=== PATIENT | female | born 1930 | race Caucasian/White ===

== ENCOUNTER 2017-06-21 10:48 | Inpatient (IN) ==
--- OUTSIDE RECORDS SUMMARY | 2017-06-21 11:54 | External Medical Summary | Summary of Care ---
:1930 Author Name Royal Blanton M.D. Address [address], [place] [id number] Care Team Providers Name Role Phone Lamar Knowles Unavailable Unavailable Tong Mcmanus, Son Unavailable Unavailable Royal Blanton M.D. Unavailable Unavailable Mayi Mcmanus, Gerardo Unavailable Unavailable Tim May Primary Care Provider Unavailable Unavailable Unavailable Unavailable Functional Status Functional Status Health Issues Name Dates Details Functional status health issues are not documented Status: Cognitive Status Health Issues Name Dates Details Cognitive status health issues are not documented Status: Problems Name Dates Details Asthma (493.90, J45.909) Status: Active Eczema (692.9, L30.9) Status: Active Medications Name Dates Details Potassium Chloride Nicky ER 20 MEQ Oral Tablet Extended Release TAKE 1 TABLET EVERY 12 HOURS. Quantity: 60 Refills: 4 Prince Fortune M.D. Started 30-Jul-2011 ActiveAllegra Allergy 180 MG Oral Tablet Refills: 0 Started ActiveMultiple Vitamin Oral Tablet Refills: 0 Started ActiveMontelukast Sodium 10 MG Oral Tablet TAKE 1 TABLET BY MOUTH DAILY Quantity: 30 Refills: 12 Lamar Wilkerson P.AFatimah Started 25-Dec-2013 ActiveSuperb Nails Oral Tablet TAKE 1 TABLET DAILY. Refills: 0 Gerardo See M.D. Started ActiveZyrTEC Allergy 10 MG Oral Tablet Take 1 tablet daily Refills: 0 Gerardo See M.D. Started ActiveHydrOXYzine HCl - 25 MG Oral Tablet Take 1 tablet daily Refills: 0 Gerardo See M.D. Started ActiveCephalexin 500 MG Oral Capsule TAKE 1 CAPSULE EVERY 12 HOURS UNTIL GONE Quantity: 20 Refills: 0 Royal Blanton M.D. Started ActiveTriamcinolone .1%/ Eucerin Compound (50/50 mix) -- 1 pound tub (454 grams) APPLY LIBERALLY TO AFFECTED AREAS TWICE DAILY NEEDED; DISPENSE 454 GM JAR Quantity: 454 Refills: 3 Royal Blanton M.D. Started Active Allergies and Adverse Reactions Name Dates Details No Known Drug Allergies Status: Active Past Medical History Name Dates Details History of pneumonia (V12.61, Z87.01) Status: Resolved History of solitary pulmonary nodule (V12.69, Z87.09) Status: Resolved Procedures Procedure Dates Details History of Hysterectomy Procedures not documented Immunization Name Dates Details Immunizations not documented Family History Mother Name Dates Details Family history of Mother At Age ____ Status: Active Father Name Dates Details Family history of Father At Age ____ Status: Active Social History Name Dates Details Smoking StatusNever smoker Vital Signs Date Test Result Details 10:28 BP Systolic 132 mm[Hg] Status: BP Diastolic 82 mm[Hg] Status: Weight 174 lb Status: Body Mass Index Calculated 28.96 kg/m2 Status: Body Surface Area Calculated 1.86 m2 Status: Results Date Description Value Details Results not documented Plan of Care Planned Observations Name Dates Details Planned Goals not documented Goal Planned Encounters Appointment; Provider: Collin Solis On 24-Dec-2014 13:15 Appointment; Provider: Prince Mishrauong On 23-Jun-2010 16:00 Appointment; Provider: Royal Blanton On 17-Jul-2009 11:45 Instructions Instructions not documented Encounters Appointment; Royal Blanton On Encounter Diagnosis: Problem not documented 14:00 Appointment; Gerardo See On Encounter Diagnosis: Problem not documented 09:45 Appointment; Collin Solis On 25-Dec-2013 Encounter Diagnosis: Problem not documented 14:15
--- OUTSIDE RECORDS SUMMARY | 2017-06-21 11:55 | External Medical Summary | Continuity of Care Document ---
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 Medications RxNorm Medication Dose Route Instructions Indications Start End Status Date Date 119 Aspirin 81 Oral orally every Active milligram day Budesonide 2 Inhalation inhaled every Active inhalation 12 hours Multivitamins 1 capsule Oral orally every Active day Potassium 75 20 Oral orally every Active MG Oral Tablet milliequiv day alent (administer with a meal and dilute/mix in a full glass of water) 224034 Rosuvastatin 10 Oral orally every Active calcium 10 MG milligram day Oral Tablet Cetirizine 0 Oral orally every No milligram day Longer Active Crestor 10 mg by Mouth by Mouth No every other Longer day Active 50758 fexofenadine 0 Oral orally every No milligram day Longer Active 20010515 montelukast 10 10 Oral orally every No MG Oral Tablet milligram evening Longer Active Allergies Code Code Allergy Type Reaction Severity Start End Status System Substance Date Date RXNorm Wheat Flour Drug Unknown 02/21/20 Active allergy 16 RXNorm MISC-FOOD Food Itchy skin Unknown 02/21/20 Active allergy eruption 16 Results Laboratory Results Order: Comprehensive Metabolic PanelLegend : D=Delta, H=High, L=Low, HH=Critical High, LL=Critical Low, AA=Critical Alpha- Numeric, C=Corrected, A=Abnormal LOINC Test Result Flag Range Units Date 2344-10 116 H 70-105 mg/dl 06/10/2016 1Glucose 08:45 SerPl-mCnc 3094-0 16 7-25 mg/dl 06/10/2016 1BUN 08:45 SerPl-mCnc 2160-0 0.9 0.6-1.3 mg/dl 06/10/2016 1Creat 08:45 SerPl-mCnc 26952-4 18 13-39 06/10/2016 1Creat/Urea 08:45 nit SerPl 2951-2 145 135-145 mmol/L 06/10/2016 1Sodium 08:45 SerPl-sCnc 81662-3 3.8 3.5-5.1 mmol/L 06/10/2016 1Potassium 08:45 SerPl-mCnc 2075-0 107 98-107 mmol/l 06/10/2016 1Chloride 08:45 SerPl-sCnc 2028-9 29 21-31 mmol/l 06/10/2016 1CO2 08:45 SerPl-sCnc 42922-4 13 9-16 mmol/L 06/10/2016 1Anion Gap 08:45 SerPl-sCnc 2692-2 302 H 277-298 mOsm/kg 06/10/2016 1Osmolality 08:45 SerPl 15587-1 9.4 8.2-10.0 mg/dl 06/10/2016 1Calcium 08:45 SerPl-mCnc 1742-6 23 7-52 IU/L 06/10/2016 1ALT 08:45 SerPl-cCnc 1920-8 29 13-39 IU/L 06/10/2016 1AST 08:45 SerPl-cCnc 1715-2 64 34-104 U/L 06/10/2016 1ACP 08:45 SerPl-cCnc 1975-2 0.3 0.3-1.0 mg/dl 06/10/2016 1Bilirub 08:45 SerPl-mCnc 2885-2 7.2 6.0-8.3 g/dL 06/10/2016 1Prot 08:45 SerPl-mCnc 1751-7 4.4 3.5-5.7 g/dl 06/10/2016 1Albumin 08:45 SerPl-mCnc 2336-6 2.8 2.3-3.2 g/dL 06/10/2016 1Globulin 08:45 Ser-nc 1759-0 1.6 1.2-2.0 06/10/2016 1Albumin/Dayanara 08:45 b SerPl 63 60-116 GFRunits 06/10/2016 1GFR 08:45 [facility]forming [facility] Footnotes:[id number] [address] [place] Order: Lipid PanelLegend: D=Delta, H=High, L=Low, HH=Critical High, LL= Critical Low, AA=Critical Alpha-Numeric, C=Corrected, A=Abnormal LOINC Test Result Flag Range Units Date 2092-06 165 <=200 mg/dL 06/10/2016 1Cholest 08:45 [facility] 2571-8 127 <=150 mg/dL 06/10/2016 1[facility]igl 08[facility] 70 23-92 mg/dl 06/10/2016 1HDLc 08:45 [facility] 65618[facility]7 70 31-179 mg/dl 06/10/2016 1LDLc SerPl 08:45 [facility] 90068[facility]4 25 8-28 mg/dL 06/10/2016 1VLDLc 08:45 [facility] 1LDL and VLDL calculations not valid when triglycerides >400mg/dl Performing Lab Footnotes:[facility] [id number] - [address] [place] [address] - [place] Vital Signs No data in the system Plan of Care No data in the system Procedures No data in the system Encounters No data in the system Immunizations No data in the system Functional Status No data in the system Hospital Discharge Instructions No data in the system
--- OUTSIDE RECORDS SUMMARY | 2017-06-21 11:55 | External Medical Summary | Continuity of Care Document ---
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 Medications RxNorm Medication Dose Route Instructions Indications Start End Status Date Date 596 Alprazolam 0.25 oral orally 2 Active milligram times per day 1191 Aspirin 81 oral orally every Active milligram day 6601548 Budesonide 0.08 2 Inhalation inhaled every Active MG/ACTUAT / inhalatio 12 hours formoterol n fumarate 0.0045 MG/ACTUAT Metered Dose Inhaler 395597 Cimetidine 200 200 oral orally Active MG Oral Tablet milligram (administer with meals;) 3498 Diphenhydramine 25 oral orally every Active milligram day at bedtime 943726 Escitalopram 10 10 oral orally every Active MG Oral Tablet milligram day 10726 Loratadine 10 oral orally every Active milligram day Multivitamins 1 capsule oral orally every Active day 5330421 NITROFURANTOIN, 100 oral orally every Active MACROCRYSTALS milligram 12 hours 25 MG / (administer Nitrofurantoin, with a Monohydrate 75 meal/food; MG Oral Capsule swallow whole; do not open, crush, dissolve , or chew;) Ocuvite 1 oral orally every Active tablet-ca day psule Potassium 75 MG 20 oral orally every Active Oral Tablet milliequi day valent (administer with a meal and dilute/mix in a full glass of water) 19800711 prednisolone 5 5 oral orally every Active MG Oral Tablet milligram day 092259 Rosuvastatin 10 oral orally every Active calcium 10 MG milligram day Oral Tablet Cetirizine 0 oral orally every No milligram day Longer Active Crestor 10 mg by Mouth by Mouth No every other Longer day Active 63376 fexofenadine 0 oral orally every No milligram day Longer Active 20010515 montelukast 10 10 oral orally every No MG Oral Tablet milligram evening Longer Active Allergies Code Code Allergy Type Reaction Severity Start End Status System Substance Date Date 13160516 RXNorm Ambien Drug Unknown 01/05/20 Active allergy 17 36887 RXNorm Paroxetine Drug Unknown 01/05/20 Active allergy 17 843613 RXNorm Remeron Drug Unknown 01/05/20 Active allergy 17 54284 RXNorm Temazepam Drug Unknown 01/05/20 Active allergy 17 RXNorm Wheat Flour Drug Unknown 02/21/20 Active allergy 16 RXNorm MISC-FOOD Food Itchy skin Unknown 02/21/20 Active allergy eruption 16 Results Laboratory Results Order: Urinalysis With Microscopic ExamLegend: D=Delta, H=High, L=Low, HH=Critical High, LL=Critical Low, AA= Critical Alpha-Numeric, C=Corrected, A=Abnormal LOINC Test Result Flag Range Units Date 5778-6 Yellow 03/08/2017 1Color Ur 16:30 42519-0 Cloudy 03/08/2017 1Clarity Ur 16:30 2966-0 1Sp 1.025 1.005-1.030 03/08/2017 Gr 24h Ur 16:30 2756-5 1pH 6.5 5.0-7.0 03/08/2017 Ur 16:30 33257-5 Moderate * NEGATIVE 03/08/2017 1Leukocyte 16:30 esterase Ur-aCnc 90041-0 Positive * NEGATIVE 03/08/2017 1Nitrite Ur Ql 16:30 Strip.auto 78487-5 Negative NEGATIVE 03/08/2017 1Prot 16:30 Tiss-mCnt 2349-9 100 mg/dL * NEGATIVE 03/08/2017 1Glucose Ur Ql 16:30 06672-1 1MEK 5 mg/dL * NEGATIVE 03/08/2017 Ur-mCnc 16:30 1977-8 Negative NEGATIVE 03/08/2017 1Bilirub Ur Ql 16:30 933-2 1Bld Negative NEGATIVE 03/08/2017 Prod Typ BPU 16:30 03283-1 0.2 <=1.0 03/08/2017 1Urobilinogen 16:30 Ur Ql Full Field * 0-5 /HPF 03/08/2017 1WBC_UM 16:30 5808-1 1RBC 2-5 * 0-5 /HPF 03/08/2017 # UrnS HPF 16:30 5787-7 1Epi 5-10 * 0-2 /HPF 03/08/2017 Cells #/area 16:30 UrnS HPF 76921-3 0-1/hpf 03/08/2017 1Trans Cells 16:30 #/area UrnS HPF 03071-8 0-2/hpf 03/08/2017 1Renal Epi 16:30 Cells #/area UrnS HPF 89417-6 Full Field /HPF 03/08/2017 1Bacteria UrnS 16:30 Ql Micro 04689-4 Small Amount * NONE PRESENT /HPF 03/08/2017 1Mucous 16:30 Threads #/area UrnS HPF 9842-6 None /lpf 03/08/2017 1Casts #/area 16:30 UrnS LPF 49673-5 None /HPF 03/08/2017 1Crystals 16:30 #/area UrnS HPF 42915-2 1C Y 03/08/2017 trach UrnS Ql 16:30 Cult [id number] [address] [place] [address] - [facility] Vital Signs No data in the system Plan of Care No data in the system Procedures No data in the system Encounters No data in the system Immunizations Vaccine Code Code System Vaccine Name Date Status 141 CVX Influenza, 01/10/2016 Completed seasonal, injectable Functional Status No data in the system Hospital Discharge Instructions No data in the system
--- OUTSIDE RECORDS SUMMARY | 2017-06-21 11:55 | External Medical Summary | Continuity of Care Document ---
:1930 Author Organization [facility] Care Team Providers Name Role Phone IDANIA NEFF Admitting Physician IDANIA NEFF Attending Physician Hospital Admission Diagnosis No data in the System Social History Element Code Description Smoking Start Date End Date Description Status Code System Smoking Status [id number] Never smoker SNOMED-CT Problems Code Code System Problem Name Start Date End Date Status 98153778 SNOMED-CT Hypertensive 02/21/2016 Active disorder LESIONS ON LUNGS Unknown Active 067954253 SNOMED-CT 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 Medications RxNorm Medication Dose Route Instructions Indications Start End Status Date Date 1191 Aspirin 81 Oral orally every Active milligram day Budesonide 2 Inhalation inhaled every Active inhalation 12 hours Multivitamins 1 capsule Oral orally every Active day Potassium 75 20 Oral orally every Active MG Oral Tablet milliequiv day alent (administer with a meal and dilute/mix in a full glass of water) 902354 Rosuvastatin 10 Oral orally every Active calcium 10 MG milligram day Oral Tablet Cetirizine 0 Oral orally every No milligram day Longer Active Crestor 10 mg by Mouth by Mouth No every other Longer day Active 79631 fexofenadine 0 Oral orally every No milligram day Longer Active 20010515 montelukast 10 10 Oral orally every No MG Oral Tablet milligram evening Longer Active Allergies Code Code Allergy Type Reaction Severity Start End Status System Substance Date Date RXNorm Wheat Flour Drug Unknown 02/21/20 Active allergy 16 RXNorm MISC-FOOD Food Itchy skin Unknown 02/21/20 Active allergy eruption 16 Results Laboratory Results Order: CBC With Automated DifferentialLegend: D=Delta, H=High, L=Low, HH=Critical High, LL=Critical Low, AA=Critical Alpha-Numeric, C=Corrected, A=Abnormal LOINC Test Result Flag Range Units Date 6690-2 7.3 4.5-11.0 10^3/mm3 02/21/2016 1WBC # Bld 13:02 Auto 30562-5 4.07 4.00-5.20 10^6/mm3 02/21/2016 1Retics # 13:02 Auto 25397-7 13.3 12.0-16.0 g/dl 02/21/2016 1Hgb 13:02 BldV-mCnc 4544-3 39.0 36.0-46.0 % 02/21/2016 1Hct VFr Bld 13:02 Auto 787-2 95.8 82.0-100.0 10^6/mm3 02/21/2016 1MCV RBC Auto 13:02 785-6 32.7 27.0-34.0 pg 02/21/2016 1MCH RBC Qn 13:02 Auto 786-4 34.1 32.0-36.0 g/dl 02/21/2016 1MCHC RBC 13:02 Auto-mCnc 788-0 13.0 11.7-15.0 % 02/21/2016 1RDW RBC 13:02 Auto-Rto 777-3 237 150-450 10^3/mm3 02/21/2016 1Platelet # 13:02 Bld Auto 12315-4 9.3 7.4-10.4 02/21/2016 1PMV Bld 13:02 26906-9 71.5 40.0-74.0 % 02/21/2016 1Neutrophils 13:02 # CSF 14.3 14.0-46.0 % 02/21/2016 1LYMPH% 13:02 03939-6 8.4 4.0-13.0 % 02/21/2016 1CD43 Ag Tiss 13:02 Ql ImStn 711-2 5.4 H 0.0-4.0 % 02/21/2016 1Eosinophil # 13:02 Bld Auto 704-7 0.4 <=3.0 % 02/21/2016 1Basophils # 13:02 Bld Auto 751-8 5.2 1.8-7.8 02/21/2016 1Neutrophils 13:02 # Bld Auto 70519-2 1.0 0.7-4.5 02/21/2016 1Lymphocytes 13:02 # Bld 45125-1 0.6 0.1-1.0 02/21/2016 1CD43 Ag Tiss 13:02 Ql ImStn 711-2 0.39 <=4.00 02/21/2016 1Eosinophil # 13:02 Bld Auto 704-7 0.03 <=0.20 02/21/2016 1Basophils # 13:02 Bld Auto N 02/21/2016 1MANDIFF 13:02 70860-1 N 02/21/2016 1RBC Bld Auto 13:02 Performing Lab Footnotes:[id number] [address] [place] [address] - [facility] Order: Comprehensive Metabolic PanelLegend: D=Delta, H=High, L=Low, HH= Critical High, LL=Critical Low, AA=Critical Alpha-Numeric, C=Corrected, A= Abnormal LOINC Test Result Flag Range Units Date 2345-7 115 H 70-105 mg/dl 02/21/2016 1Glucose 13:02 SerPl-nc 3094-0 22 7-25 mg/dl 02/21/2016 1BUN 13:02 SerPl-nc 2160-0 0.9 0.6-1.3 mg/dl 02/21/2016 1Creat 13:02 SerPl-nc 56896-4 24 13-39 02/21/2016 1Creat/Urea 13:02 nit SerPl 2951-2 138 135-145 mmol/L 02/21/2016 1Sodium 13:02 SerPl-[facility] 64988-9 4.2 3.5-5.1 mmol/L 02/21/2016 1Potassium 13:02 SerPl-[facility] 2075-0 102 98-107 mmol/l 02/21/2016 1Chloride 13:02 [facility] 29 21-31 mmol/l 02/21/2016 1CO2 13:02 SerPl-sCnc 87731-1 11 9-16 mmol/L 02/21/2016 1Anion Gap 13:02 SerPl-[facility] 2692-2 290 277-298 mOsm/kg 02/21/2016 1Osmolality 13:02 SerPl 64401-7 9.6 8.2-10.0 mg/dl 02/21/2016 1Calcium 13:02 SerPl-[facility] 1742-6 27 7-52 IU/L 02/21/2016 1ALT 13:02 SerPl-[facility] 1920-8 30 13-39 IU/L 02/21/2016 1AST 13:02 SerPl-[facility] 1715-2 63 34-104 U/L 02/21/2016 1ACP 13:02 SerPl-[facility] 1975-2 0.7 0.3-1.0 mg/dl 02/21/2016 1Bilirub 13:02 SerPl-[facility] 2885-2 7.7 6.0-8.3 g/dL 02/21/2016 1Prot 13:02 SerPl-[facility] 1751-7 4.6 3.5-5.7 g/dl 02/21/2016 1[facility]in [facility] 2[facility]6 3.1 2.3-3.2 g/dL 02/21/2016 1Globulin 13:02 Ser-[facility] 1759-0 1.5 1.2-2.0 02/21/2016 1Albumin/Dayanara 13:02 b SerPl 64 60-116 GFRunits 02/21/2016 1GFR 13:02 Performing Lab Footnotes:[facility] [id number] [address] [place] [address] JOSEPH Order: Troponin ILegend: D=Delta, H=High, L=Low, HH=Critical High, LL=Critical Low, AA=Critical Alpha-Numeric, C=Corrected, A=Abnormal LOINC Test Result Flag Range Units Date 57970-1 <0.06 0.00-0.06 ng/ml 02/21/2016 1Troponin I ng/ml 13:02 SerPl DL<=0.01 ng/mL-mCnc Troponin Interpretive Ranges:(96% sensitivity and 94% specificity)<=0.06 ng/mL=no detectable cardiac injury0.06 - 0.49 ng/mL=cardiac muscle injury>=0.5 ng'mL=myocardial infarction Performing Lab Footnotes:[facility] [id number] - [address] [place] [address] - [facility] Order: Urinalysis With Microscopic ExamLegend: D=Delta, H=High, L=Low, HH= Critical High, LL=Critical Low, AA=Critical Alpha-Numeric, C=Corrected, A= Abnormal LOINC Test Result Flag Range Units Date 5778-6 Color Ur Yellow 6 13:02 75245-6 Clarity Cloudy Ur 6 13:02 2966-0 Sp Gr 1.020 1.005-1.030 24h Ur 6 13:02 2756-5 pH Ur 6.5 5.0-7.0 6 13:02 65423-0 Large * NEGATIVE Leukocyte esterase 6 13:02 Ur-aCnc 66631-0 Nitrite Negative NEGATIVE Ur Ql Strip.auto 6 13:02 21638-2 Prot Negative NEGATIVE Tiss-mCnt 6 13:02 2349-9 Glucose Negative NEGATIVE Ur Ql 6 13:02 76699-9 MEK Negative NEGATIVE Ur-mCnc 6 13:02 1977-8 Bilirub Negative NEGATIVE Ur Ql 6 13:02 933-2 Bld Prod Trace-lysed * NEGATIVE Typ BPU 6 13:02 81781-8 0.2 <=1.0 Urobilinogen Ur Ql 6 13:02 1WBC_UM 40-50 * 0-5 /HPF 6 13:02 5808-1 1RBC # 2-5 * 0-5 /HPF UrnS HPF 6 13:02 5787-7 1Epi 2-5 * 0-2 /HPF Cells #/area UrnS 6 13:02 HPF 92749-0 Many /HPF 1Bacteria UrnS Ql 6 13:02 Micro 25323-1 1Mucous Small Amount * NONE PRESENT /HPF Threads #/area 6 13:02 UrnS HPF 9842-6 1Casts Occasional /lpf #/area UrnS LPF Hyaline casts 6 13:02 26242-9 1C trach Y UrnS Ql Cult 6 13:02 Performing Lab Footnotes:[facility] [id number] - [address] [place] [address] - [facility] Vital Signs Vitals Value Date Body Temperature 97.2 F 02/21/2016 Respiratory Rate 18 02/21/2016 O2% BldC Oximetry 95 02/21/2016 BP Systolic 160 mmHg 02/21/2016 BP Diastolic 105 mmHg 02/21/2016 Height 67 in 02/21/2016 Weight Measured 173 lbs 02/21/2016 BSA (Body Surface Area) 1.02056 02/21/2016 BMI (Body Mass Index) 27.1 02/21/2016 Plan of Care No data in the system Procedures No data in the system Encounters No data in the system Immunizations No data in the system Functional Status No data in the system Hospital Discharge Instructions No data in the system
--- OUTSIDE RECORDS SUMMARY | 2017-06-21 11:55 | External Medical Summary | Continuity of Care Document ---
:1930 Author Organization [facility] Care Team Providers Name Role Phone [facility] Hospital Admission Diagnosis Code Admission Diagnosis Date [id number] Disorientated Social History Element Code Description Smoking Start Date End Date Description Status Code System Smoking Status [id number] Unknown if ever SNOMED-CT smoked Problems Code Code System Problem Name Start Date End Date Status 82317839 SNOMED-CT Hypertensive 02/21/2016 Active disorder LESIONS ON LUNGS Unknown Active 701423723 SNOMED-CT 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 Medications RxNorm Medication Dose Route Instructions Indications Start End Status Date Date 596 Alprazolam 0.25 oral orally 2 Active milligram times per day 1191 Aspirin 81 oral orally every Active milligram day 3569028 Budesonide 0.08 2 Inhalation inhaled every Active MG/ACTUAT / inhalatio 12 hours formoterol n fumarate 0.0045 MG/ACTUAT Metered Dose Inhaler Cimetidine 200 200 oral orally Active MG Oral Tablet milligram (administer with meals;) 3498 Diphenhydramine 25 oral orally every Active milligram day at bedtime 053742 Escitalopram 10 10 oral orally every Active MG Oral Tablet milligram day 03707 Loratadine 10 oral orally every Active milligram day Multivitamins 1 capsule oral orally every Active day 9335318 NITROFURANTOIN, 100 oral orally every Active MACROCRYSTALS [...] every Active MG Oral Tablet milligram day 822580 Rosuvastatin 10 oral orally every Active calcium 10 MG milligram day Oral Tablet Cetirizine 0 oral orally every No milligram day Longer Active Crestor 10 mg by Mouth by Mouth No every other Longer day Active 86141 fexofenadine 0 oral orally every No milligram day Longer Active 20010515 montelukast 10 10 oral orally every No MG Oral Tablet milligram evening Longer Active Allergies Code Code Allergy Type Reaction Severity Start End Status System Substance Date Date 13160516 RXNorm Ambien Drug Unknown 01/05/20 Active allergy 17 73185 RXNorm Paroxetine Drug Unknown 01/05/20 Active allergy 17 185852 RXNorm Remeron Drug Unknown 01/05/20 Active allergy 17 77216 RXNorm Temazepam Drug Unknown 01/05/20 Active allergy 17 RXNorm Wheat Flour Drug Unknown 02/21/20 Active allergy 16 RXNorm MISC-FOOD Food Itchy skin Unknown 02/21/20 Active allergy eruption 16 Results Laboratory Results Order: Urinalysis With Microscopic ExamLegend: D=Delta, H=High, L=Low, HH=Critical High, LL=Critical Low, AA= Critical Alpha-Numeric, C=Corrected, A=Abnormal LOINC Test Result Flag Range Units Date 5778-6 Light Yellow 05/04/2017 1Color Ur 10:40 74356-5 Cloudy 05/04/2017 1Clarity Ur 10:40 2966-0 1Sp 1.020 1.005-1.030 05/04/2017 Gr 24h Ur 10:40 2756-5 1pH 6.5 5.0-7.0 05/04/2017 Ur 10:40 60342-0 Small * NEGATIVE 05/04/2017 1Leukocyte 10:40 esterase Ur-aCnc 66262-9 Positive * NEGATIVE 05/04/2017 1Nitrite Ur Ql 10:40 Strip.auto 31438-9 Negative NEGATIVE 05/04/2017 1Prot 10:40 Tiss-mCnt 2349-9 Negative NEGATIVE 05/04/2017 1Glucose Ur Ql 10:40 78774-5 1MEK Negative NEGATIVE 05/04/2017 Ur-mCnc 10:40 1976-8 Negative NEGATIVE 05/04/2017 1Bilirub Ur Ql 10:40 933-2 1Bld Negative NEGATIVE 05/04/2017 Prod Typ BPU 10:40 77335-7 0.2 <=1.0 05/04/2017 1Urobilinogen 10:40 Ur Ql 20-30 * 0-5 /HPF 05/04/2017 1WBC_UM 10:40 5808-1 1RBC 2-5 * 0-5 /HPF 05/04/2017 # UrnS HPF 10:40 5787-7 1Epi 0-2 0-2 /HPF 05/04/2017 Cells #/area 10:40 UrnS HPF 47835-2 Full Field /HPF 05/04/2017 1Bacteria UrnS 10:40 Ql Micro 27803-2 1C Y 05/04/2017 trach UrnS Ql 10:40 Cult [facility]forming [facility] Footnotes:[id number] [address] [place] [address] Microbiology Results w SusceptibilitiesOrder: Culture UrineComments:1Fax to [facility] #1:1Escherichia coli (> 100,000 cfu/ml)Susceptibility: LOINC Code Drug Interpretation Result Date 1Ampicillin Susceptible <=2 05/04/2017 10:40 32-3 1Ampicillin/Sul Susceptible <=2 05/04/2017 bactam 10:40 76-0 1Cefazolin Susceptible <=4 05/04/2017 10:40 21083-1 1Cefepime Susceptible <=1 05/04/2017 10:40 26653-3 1Ceftriaxone Susceptible <=1 05/04/2017 10:40 185-9 1Ciprofloxacin Susceptible <=0.25 05/04/2017 10:40 267-5 1Gentamicin Susceptible <=1 05/04/2017 10:40 99531-1 1Levofloxacin Susceptible <=0.12 05/04/2017 10:40 1Nitrofurantoin Susceptible <=16 05/04/2017 (ftn) 10:40 412-7 1Piperacillin/t Susceptible <=4 05/04/2017 azobactam 10:40 508-2 1Tobramycin Susceptible <=1 05/04/2017 10:40 516-5 1Trimethoprim/S Susceptible <=20 05/04/2017 ulfamethoxazole 10:40 Performing Lab Footnotes:[facility] [id number] - [address] [place] [address] [facility] Vital Signs No data in the system Plan of Care No data in the system Procedures No data in the system Encounters Date Code Diagnosis Status (ICD10) - R410 DISORIENTATION UNSPECIFIED Active Immunizations Vaccine Code Code System Vaccine Name Date Status 141 CVX Influenza, 01/10/2016 Completed seasonal, injectable Functional Status No data in the system Hospital Discharge Instructions No data in the system
--- OUTSIDE RECORDS SUMMARY | 2017-06-21 11:55 | External Medical Summary | Continuity of Care Document ---
:1930 Author Organization [facility] Care Team Providers Name Role Phone DEVORA LYNN Admitting Physician DEVORA LYNN Attending Physician DR YAYO CLAYTON Primary Care Physician Hospital Admission Diagnosis No data in the System Social History Element Code Description Smoking Start Date End Date Description Status Code System Smoking Status [id number] Unknown if ever SNOMED-CT smoked Problems Code Code System Problem Name Start Date End Date Status 43731269 SNOMED-CT Hypertensive 02/21/2016 Active disorder LESIONS ON LUNGS Unknown Active 865269427 SNOMED-CT 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 Medications RxNorm Medication Dose Route Instructions Indications Start End Status Date Date 596 Alprazolam 0.25 oral orally 2 Active milligram times per day 1191 Aspirin 81 oral orally every Active milligram day Budesonide 2 Inhalation inhaled every Active inhalatio 12 hours n 414259 Cimetidine 200 200 oral orally Active MG Oral Tablet milligram (administer with meals;) 3498 Diphenhydramine 25 oral orally every Active milligram day at bedtime 857415 Escitalopram 10 10 oral orally every Active MG Oral Tablet milligram day 27090 Loratadine 10 oral orally every Active milligram day Multivitamins 1 capsule oral orally every Active day 8651317 NITROFURANTOIN, 100 oral orally every Active MACROCRYSTALS [...] every Active MG Oral Tablet milligram day 529565 Rosuvastatin 10 oral orally every Active calcium 10 MG milligram day Oral Tablet 87609 Cetirizine 0 oral orally every No milligram day Longer Active Crestor 10 mg by Mouth by Mouth No every other Longer day Active 94948 fexofenadine 0 oral orally every No milligram day Longer Active 20010515 montelukast 10 10 oral orally every No MG Oral Tablet milligram evening Longer Active Allergies Code Code Allergy Type Reaction Severity Start End Status System Substance Date Date 13160516 RXNorm Ambien Drug Unknown 01/05/20 Active allergy 17 85164 RXNorm Paroxetine Drug Unknown 01/05/20 Active allergy 17 332811 RXNorm Remeron Drug Unknown 01/05/20 Active allergy 17 56051 RXNorm Temazepam Drug Unknown 01/05/20 Active allergy 17 RXNorm Wheat Flour Drug Unknown 02/21/20 Active allergy 16 RXNorm MISC-FOOD Food Itchy skin Unknown 02/21/20 Active allergy eruption 16 Results Radiology Results Order: [id number] Ribs - RT unilateral w CXR (1 view)Exam Completion Date:01/14/2017 15:05INDICATION: fallRibs - RT unilateral w CXR (1 view): Heart size is normal. Pulmonaryvasculature is not engorged. No evidence of pneumothorax. Stable nodularityin the right midlung adjacent to the minor fissure unchanged from 11/07/2016. Repeat chest radiograph is recommended in 2 months to document stability. Noright rib fracture deformities are identified.Released By IGLESIA MOSLEY, MDDate: 01/14/2017 15 :49Order: [id number] Knee RT 3 viewsExam Completion Date:01/14/2017 15:05INDICATION : fallKnee RT 3 views: No evidence of knee joint effusion. No acute fractures areseen.Released By IGLESIA MOSLEY, CASEYate: 01/14/2017 15:50 Vital Signs Vitals Value Date Respiratory Rate 18 01/14/2017 O2% dC Oximetry 94 01/14/2017 BP Systolic 187 mmHg 01/14/2017 BP Diastolic 77 mmHg 01/14/2017 Body Temperature 97.1 F 01/14/2017 Height 67 in 01/14/2017 Weight Measured 165 lbs 01/14/2017 BSA (Body Surface Area) 1.8633 01/14/2017 BMI (Body Mass Index) 25.8 01/14/2017 Plan of Care No data in the system Procedures No data in the system Encounters No data in the system Immunizations Vaccine Code Code System Vaccine Name Date Status 141 CVX Influenza, 01/10/2016 Completed seasonal, injectable Functional Status No data in the system Hospital Discharge Instructions No data in the system
--- OUTSIDE RECORDS SUMMARY | 2017-06-21 11:55 | External Medical Summary | Continuity of Care Document ---
:1930 Author Organization [facility] Care Team Providers Name Role [facility] Admitting [facility]ician SHANIA CLAYTON Attending Physician Hospital Admission Diagnosis No data in the System Social History Element Code Description Smoking Start Date End Date Description Status Code System Smoking Status [id number] Unknown if ever SNOMED-CT smoked Problems Code Code System Problem Name Start Date End Date Status 04820801 SNOMED-CT Hypertensive 02/21/2016 Active disorder LESIONS ON LUNGS Unknown Active 092059711 SNOMED-CT 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 Medications RxNorm Medication Dose Route Instructions Indications Start End Status Date Date 596 Alprazolam 0.25 oral orally 2 Active milligram times per day 1191 Aspirin 81 oral orally every Active milligram day 3237469 Budesonide 0.08 2 Inhalation inhaled every Active MG/ACTUAT / inhalatio 12 hours formoterol n fumarate 0.0045 MG/ACTUAT Metered Dose Inhaler Cimetidine 200 200 oral orally Active MG Oral Tablet milligram (administer with meals;) 3498 Diphenhydramine 25 oral orally every Active milligram day at bedtime 816192 Escitalopram 10 10 oral orally every Active MG Oral Tablet milligram day 41563 Loratadine 10 oral orally every Active milligram day Multivitamins 1 capsule oral orally every Active day 8625983 NITROFURANTOIN, 100 oral orally every Active MACROCRYSTALS [...] every Active MG Oral Tablet milligram day 354456 Rosuvastatin 10 oral orally every Active calcium 10 MG milligram day Oral Tablet Cetirizine 0 oral orally every No milligram day Longer Active Crestor 10 mg by Mouth by Mouth No every other Longer day Active 70407 fexofenadine 0 oral orally every No milligram day Longer Active 20010515 montelukast 10 10 oral orally every No MG Oral Tablet milligram evening Longer Active Allergies Code Code Allergy Type Reaction Severity Start End Status System Substance Date Date 13160516 RXNorm Ambien Drug Unknown 01/05/20 Active allergy 17 30104 RXNorm Paroxetine Drug Unknown 01/05/20 Active allergy 17 089113 RXNorm Remeron Drug Unknown 01/05/20 Active allergy 17 77693 RXNorm Temazepam Drug Unknown 01/05/20 Active allergy 17 RXNorm Wheat Flour Drug Unknown 02/21/20 Active allergy 16 RXNorm MISC-FOOD Food Itchy skin Unknown 02/21/20 Active allergy eruption 16 Results Laboratory Results Order: Urinalysis With Microscopic ExamLegend: D=Delta, H=High, L=Low, HH=Critical High, LL=Critical Low, AA= Critical Alpha-Numeric, C=Corrected, A=Abnormal LOINC Test Result Flag Range Units Date 5778-6 Light Yellow 05/04/2017 1Color Ur 10:40 03699-6 Cloudy 05/04/2017 1Clarity Ur 10:40 2966-0 1Sp 1.020 1.005-1.030 05/04/2017 Gr 24h Ur 10:40 2756-5 1pH 6.5 5.0-7.0 05/04/2017 Ur 10:40 53885-6 Small * NEGATIVE 05/04/2017 1Leukocyte 10:40 esterase Ur-aCnc 10171-2 Positive * NEGATIVE 05/04/2017 1Nitrite Ur Ql 10:40 Strip.auto 01881-9 Negative NEGATIVE 05/04/2017 1Prot 10:40 Tiss-mCnt 2349-9 Negative NEGATIVE 05/04/2017 1Glucose Ur Ql 10:40 49778-5 1MEK Negative NEGATIVE 05/04/2017 Ur-mCnc 10:40 1977-8 Negative NEGATIVE 05/04/2017 1Bilirub Ur Ql 10:40 933-2 1Bld Negative NEGATIVE 05/04/2017 Prod Typ BPU 10:40 42665-1 0.2 <=1.0 05/04/2017 1Urobilinogen 10:40 Ur Ql 20-30 * 0-5 /HPF 05/04/2017 1WBC_UM 10:40 5808-1 1RBC 2-5 * 0-5 /HPF 05/04/2017 # UrnS HPF 10:40 5787-7 1Epi 0-2 0-2 /HPF 05/04/2017 Cells #/area 10:40 UrnS HPF 39439-4 Full Field /HPF 05/04/2017 1Bacteria UrnS 10:40 Ql Micro 18264-8 1C Y 05/04/2017 trach UrnS Ql 10:40 Cult [facility]forming [id number] [address] [place] [address] [facility] Vital Signs No data in the [...]
--- OUTSIDE RECORDS SUMMARY | 2017-06-21 11:55 | External Medical Summary | Continuity of Care Document ---
:1930 Author Organization [facility] Care Team Providers Name Role Phone ABRAHAM SCHUMACHER Admitting Physician Unavailable ABRAHAM SCHUMACHER Attending Physician Unavailable DR YAYO CLAYTON Primary Care Physician Hospital Admission Diagnosis Code Admission Diagnosis Date [id number] Contusion of ocular adnexa Social History Element Code Description Smoking Start Date End Date Description Status Code System Smoking Status 939935393 Unknown if ever SNOMED-CT smoked Problems Code Code System Problem Name Start Date End Date Status 59335103 SNOMED-CT Hypertensive 02/21/2016 Active disorder LESIONS ON LUNGS Unknown Active 147167511 SNOMED-CT 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 Medications RxNorm Medication Dose Route Instructions Indications Start End Status Date Date 59 Alprazolam 0.25 oral orally 2 Active milligram times per day 1191 Aspirin 81 oral orally every Active milligram day Budesonide 2 Inhalation inhaled every Active inhalatio 12 hours n 313867 Cimetidine 200 200 oral orally Active MG Oral Tablet milligram (administer with meals;) 3498 Diphenhydramine 25 oral orally every Active milligram day at bedtime 085861 Escitalopram 10 10 oral orally every Active MG Oral Tablet milligram day 95001 Loratadine 10 oral orally every Active milligram day Multivitamins 1 capsule oral orally every Active day 2248492 NITROFURANTOIN, 100 oral orally every Active MACROCRYSTALS [...] every Active MG Oral Tablet milligram day 649431 Rosuvastatin 10 oral orally every Active calcium 10 MG milligram day Oral Tablet Cetirizine 0 oral orally every No milligram day Longer Active Crestor 10 mg by Mouth by Mouth No every other Longer day Active 08103 fexofenadine 0 oral orally every No milligram day Longer Active 20010515 montelukast 10 10 oral orally every No MG Oral Tablet milligram evening Longer Active Allergies Code Code Allergy Type Reaction Severity Start End Status System Substance Date Date 411421 RXNorm Ambien Drug Unknown 01/05/20 Active allergy 17 72449 RXNorm Paroxetine Drug Unknown 01/05/20 Active allergy 17 176015 RXNorm Remeron Drug Unknown 01/05/20 Active allergy 17 20256 RXNorm Temazepam Drug Unknown 01/05/20 Active allergy 17 RXNorm Wheat Flour Drug Unknown 02/21/20 Active allergy 16 RXNorm MISC-FOOD Food Itchy skin Unknown 02/21/20 Active allergy eruption 16 Results Radiology Results Order: CTCERWO CT Cerv Spine WO/ContrastExam Completion Date:01/04/2017 08:08INDICATION: fall, head injuryCT Cerv Spine WO/ Contrast:Axial acquisitions were obtained with coronaland sagittal reconstructions.Comparison: 12/31/2016Findings: There is straightening of normal cervical lordosis. Alignment ismaintained. No fractures are seen. There is degenerative disc disease at everylevel. A large amount of degenerative soft tissue calcification/pannus at theC1-2 articulation possibly from calcium hydroxyapatite deposition. Multileveldisc calcification. There is uncovertebral joint spurring at several levelsprobably resulting in foraminal narrowing. Scanning through the lung apicesdemonstrates groundglass attenuation both upper lobes which may be frominfiltrate or fibrosis. Thisis similar to the prior exam.IMPRESSION: diffuse cervical spondylosis. No acute fracture.Released ByIGLESIA MOSLEY, MDDate: 01/04/2017 08:51Order: CTHDWO CT Head or Brain WO/ ContrastExam Completion Date:01/04/2017 08:07INDICATION: fall, head injuryCT Head or Brain WO/Contrast:Technique: Axial acquisitions were obtained through the brain withoutcontrast. Comparison: 12/31/2016 There is mild age-related cerebral atrophy. There is decreased density withinthe white matter. This is nonspecific, though may reflect chronicmicrovascular ischemia. The wall-white matter interface is maintained. Thereis no midline shift or mass effect. The basilar cisterns remain patent. Thereis no evidence for acute intracranial hemorrhage. No mass lesions or edema tosuggest acute ischemia.IMPRESSION: Stable CT head without acute intracranial abnormality.Released By IGLESIA MOSLEY, MDDate: 01/04/2017 08:48 Vital Signs Vitals Value Date Body Temperature 97.2 F 01/04/2017 Respiratory Rate 11 01/04/2017 O2% BldC Oximetry 96 01/04/2017 BP Systolic 140 mmHg 01/04/2017 BP Diastolic 82 mmHg 01/04/2017 Height 67 in 01/04/2017 Weight Measured 179 lbs 01/04/2017 BSA (Body Surface Area) 1.98574 01/04/2017 BMI (Body Mass Index) 28 01/04/2017 Plan of Care No data in the system Procedures No data in the system Encounters Date Code Diagnosis Status (ICD10) - [id number] CONTUS LT EYELD PERIOCULR AREA Active INIT Immunizations Vaccine Code Code System Vaccine Name Date Status 141 CVX Influenza, 01/10/2016 Completed seasonal, injectable Functional Status No data in the system Hospital Discharge Instructions No data in the system
--- OUTSIDE RECORDS SUMMARY | 2017-06-21 11:55 | External Medical Summary | Continuity of Care Document ---
:1930 Author Organization [facility] Care Team Providers Name Role Phone Johnnie CERDA Admitting Physician Unavailable Johnnie CERDA Attending Physician Unavailable Hospital Admission Diagnosis No data in the System Social History Element Code Description Smoking Start Date End Date Description Status Code System Smoking Status [id number] Never smoker SNOMED-CT Problems Code Code System Problem Name Start Date End Date Status 71553466 SNOMED-CT Hypertensive 02/21/2016 Active disorder LESIONS ON LUNGS Unknown Active 935919655 SNOMED-CT 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 Medications [...] dilute/mix in a full glass of water) 349223 Rosuvastatin 10 Oral orally every Active calcium 10 MG milligram day Oral Tablet Cetirizine 0 Oral orally every No milligram day Longer Active Crestor 10 mg by Mouth by Mouth No every other Longer day Active 05092 fexofenadine 0 Oral orally every No milligram [...] Order: CTCERWO CT Cerv Spine WO/ContrastExam Completion Date:03/14/2016 20:42INDICATION: fall with head injury and neck painCT Cerv Spine WO/Contrast: Technique: Initially thinaxial CT images of thecervical spine were obtained without contrast. 2-D reconstructions were thenperformed.Contrast: noneComparison: 10/04/2012Findings: The cervical spine has not changed significantly since 10/04/2012.Again seen is degenerative narrowing of multiple cervical interspaces withassociated hypertrophic changes. Diffuse facet arthropathy. There are alsomarked hypertrophic and degenerativechanges in the atlantoaxial articulation.Also seen is chondrocalcinosis and periarticular calcification consistent withsuperimposed CPPD. Loss of the normal cervical lordosis. The cervical spine isotherwise negative. Specifically there are no focal osseous lesions orfractures.Released By CASEY ADAMESate: 03/15/2016 08:48Order: CTHDWO CT Head or Brain WO/ ContrastExam Completion Date:03/14/2016 20:41INDICATION: fall, head injury, neck painCT Head or Brain WO/Contrast: Technique: Axial images of the head wereobtained without IV contrast.Comparison: 10/04/2012Findings: Generalized cerebral atrophy. Prominence of the ventricular systemprobably due to this atrophy. This ventricular prominence howeveris slightlymore marked today than on 10/04/2012. This raises the possibility ofsuperimposed normal pressure hydrocephalus. Again seen are diffuse lowattenuation changes in the subcortical and periventricular white matter ofboth cerebral hemispheres probably due to chronic ischemic microvasculardisease.No acute infarcts are seen. There is no gross hemorrhage or masseffect. The calvarium is intact. Thevisualized paranasal sinuses and mastoidair cells are clear. Both orbits are grossly negative.Released By CASEY ADAMESate: 03/15/2016 08:45 Vital Signs Vitals Value Date Body Temperature 97.9 F 03/14/2016 Respiratory Rate 12 03/14/2016 O2% BldC Oximetry 97 03/14/2016 BP Systolic 202 mmHg 03/14/2016 BP Diastolic 99 mmHg 03/14/2016 Height 67 in 03/14/2016 Weight Measured 175 lbs 03/14/2016 BSA (Body Surface Area) 1.49331 03/14/2016 BMI (Body Mass Index) 27.4 03/14/2016 Plan of Care No data in the system Procedures No data in the system Encounters No data in the system Immunizations No data in the system Functional Status No data in the system Hospital Discharge Instructions No data in the system
--- OUTSIDE RECORDS SUMMARY | 2017-06-21 11:55 | External Medical Summary | Continuity of Care Document ---
:1930 Author Organization [facility] Care Team Providers Name Role Phone ABRAHAM SCHUMACHER Admitting Physician Unavailable ABRAHAM SCHUMACHER Attending Physician Unavailable DR YAYO CLAYTON Primary Care Physician Hospital Admission Diagnosis Code Admission Diagnosis Date [id number] Abrasion of head Social History Element Code Description Smoking Start Date End Date Description Status Code System Smoking Status 513530021 Never smoker SNOMED-CT Problems Code Code System Problem Name Start Date End Date Status 27791068 SNOMED-CT Hypertensive 02/21/2016 Active disorder LESIONS ON LUNGS Unknown Active 378115470 SNOMED-CT 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 Medications RxNorm Medication Dose Route Instructions Indications Start End Status Date Date 596 Alprazolam 0.25 oral orally 2 Active milligram times per day 1191 Aspirin 81 oral orally every Active milligram day Budesonide 2 Inhalation inhaled every Active inhalatio 12 hours n 576100 Cimetidine 200 200 oral orally Active MG Oral Tablet milligram (administer with meals;) 3498 Diphenhydramine 25 oral orally every Active milligram day at bedtime 902344 Escitalopram 10 10 oral orally every Active MG Oral Tablet milligram day 85160 Loratadine 10 oral orally every Active milligram day Multivitamins 1 capsule oral orally every Active day 6543828 NITROFURANTOIN, 100 oral orally every Active MACROCRYSTALS [...] every Active MG Oral Tablet milligram day 757912 Rosuvastatin 10 oral orally every Active calcium 10 MG milligram day Oral Tablet Cetirizine 0 oral orally every No milligram day Longer Active Crestor 10 mg by Mouth by Mouth No every other Longer day Active 46264 fexofenadine 0 oral orally every No milligram day Longer Active 20010515 montelukast 10 10 oral orally every No MG Oral Tablet milligram evening Longer Active Allergies Code Code Allergy Type Reaction Severity Start End Status System Substance Date Date 800871 RXNorm Ambien Drug Unknown 01/05/20 Active allergy 17 53037 RXNorm Paroxetine Drug Unknown 01/05/20 Active allergy 17 154704 RXNorm Remeron Drug Unknown 01/05/20 Active allergy 17 29236 RXNorm Temazepam Drug Unknown 01/05/20 Active allergy 17 RXNorm Wheat Flour Drug Unknown 02/21/20 Active allergy 16 RXNorm MISC-FOOD Food Itchy skin Unknown 02/21/20 Active allergy eruption 16 Results Laboratory Results Order: Urinalysis With Microscopic ExamLegend: D=Delta, H=High, L=Low, HH=Critical High, LL=Critical Low, AA= Critical Alpha-Numeric, C=Corrected, A=Abnormal LOINC Test Result Flag Range Units Date 5778-6 Yellow 12/31/2016 1Color Ur 17:37 08725-3 Cloudy 12/31/2016 1Clarity Ur 17:37 2966-0 1Sp 1.010 1.005-1.030 12/31/2016 Gr 24h Ur 17:37 2756-5 1pH >=9.0 H 5.0-7.0 12/31/2016 Ur 17:37 10634-5 Trace * NEGATIVE 12/31/2016 1Leukocyte 17:37 esterase Ur-aCnc 95670-6 Negative NEGATIVE 12/31/2016 1Nitrite Ur Ql 17:37 Strip.auto 61656-5 100 mg/dL * NEGATIVE 12/31/2016 1Prot 17:37 Tiss-mCnt 2349-9 250 mg/dL * NEGATIVE 12/31/2016 1Glucose Ur Ql 17:37 82324-1 1MEK Negative NEGATIVE 12/31/2016 Ur-mCnc 17:37 1977-8 Negative NEGATIVE 12/31/2016 1Bilirub Ur Ql 17:37 933-2 1Bld Negative NEGATIVE 12/31/2016 Prod Typ BPU 17:37 86223-7 1.0 <=1.0 12/31/2016 1Urobilinogen 17:37 Ur Ql 0-2 * 0-5 /HPF 12/31/2016 1WBC_UM 17:37 5787-7 1Epi 0-2 0-2 /HPF 12/31/2016 Cells #/area 17:37 UrnS HPF 09778-4 Full Field /HPF 12/31/2016 1Bacteria UrnS 17:37 Ql Micro 75955-1 few Calcium /HPF 12/31/2016 1Crystals Phosphate 17:37 #/area UrnS HPF 06590-4 1C Y 12/31/2016 trach UrnS Ql 17:37 Cult Performing Lab Footnotes:[address] [place] [address] - [id number] - [address] [place] [address] - [facility] Order: CBC With Automated DifferentialLegend: D=Delta, H=High, L=Low, HH= Critical High, LL=Critical Low, AA=Critical Alpha-Numeric, C=Corrected, A= Abnormal LOINC Test Result Flag Range Units Date 6690-2 5.4 4.5-11.0 10^3/mm3 12/31/2016 1WBC # Bld 17:10 Auto 72396-6 3.54 L 4.00-5.20 10^6/mm3 12/31/2016 1Retics # 17:10 Auto 85440-9 11.5 L 12.0-16.0 g/dl 12/31/2016 1Hgb 17:10 BldV-mCnc 4544-3 34.4 L 36.0-46.0 % 12/31/2016 1Hct VFr Bld 17:10 Auto 787-2 97.2 82.0-100.0 10^6/mm3 12/31/2016 1MCV RBC Auto 17:10 785-6 32.5 27.0-34.0 pg 12/31/2016 1MCH RBC Qn 17:10 Auto 786-4 33.4 32.0-36.0 g/dl 12/31/2016 1MCHC RBC 17:10 Auto-mCnc 788-0 12.9 11.7-15.0 % 12/31/2016 1RDW RBC 17:10 Auto-Rto 777-3 223 150-450 10^3/mm3 12/31/2016 1Platelet # 17:10 Bld Auto 41999-3 8.7 7.4-10.4 12/31/2016 1PMV Bld 17:10 72630-2 59.5 40.0-74.0 % 12/31/2016 1Neutrophils 17:10 # CSF 20.9 14.0-46.0 % 12/31/2016 1LYMPH% 17:10 98979-2 12.1 4.0-13.0 % 12/31/2016 1CD43 Ag Tiss 17:10 Ql ImStn 711-2 7.1 H 0.0-4.0 % 12/31/2016 1Eosinophil # 17:10 Bld Auto 704-7 0.4 <=3.0 % 12/31/2016 1Basophils # 17:10 Bld Auto 751-8 3.2 1.8-7.8 12/31/2016 1Neutrophils 17:10 # Bld Auto 46357-9 1.1 0.7-4.5 12/31/2016 1Lymphocytes 17:10 # Bld 00139-8 0.7 0.1-1.0 12/31/2016 1CD43 Ag Tiss 17:10 Ql ImStn 711-2 0.38 <=4.00 12/31/2016 1Eosinophil # 17:10 Bld Auto 704-7 0.02 <=0.20 12/31/2016 1Basophils # 17:10 Bld Auto N 12/31/2016 1MANDIFF 17:10 50660-0 N 12/31/2016 1RBC Bld Auto 17:10 [id number] [address] [place], [place] [address]B Order: ISTAT Chem 8Legend: D=Delta, H=High, L=Low, HH=Critical High, LL= Critical Low, AA=Critical Alpha-Numeric, C=Corrected, A=Abnormal LOINC Test Result Flag Range Units Date 2951-2 138 135-145 mmol/L 12/31/2016 1Sodium 17:10 SerPl-sCnc 77135-3 3.6 3.5-5.1 mmol/L 12/31/2016 1Potassium 17:10 SerPl-mCnc 2075-0 104 98-107 mmol/l 12/31/2016 1Chloride 17:10 SerPl-sCn 58467-7 1.11 L 1.12-1.32 mmol/L 12/31/2016 1Calcium 17:10 XXX-sCnc 2345-7 201 H 70-105 mg/dl 12/31/2016 1Glucose 17:10 SerPl-nc 3094-0 18 7-25 mg/dl 12/31/2016 1BUN 17:10 SerPl-mCnc 2028-9 22 21-31 mmol/l 12/31/2016 1CO2 17:10 SerPl-sCnc 2160-0 0.7 0.6-1.3 mg/dl 12/31/2016 1Creat 17:10 SerPl-nc 16560-8 16 9-16 mmol/L 12/31/2016 1Anion Gap 17:10 SerPl-sCnc 79 60-116 GFRunits 12/31/2016 1GFR 17:10 Performing Lab Footnotes:[facility] [id number] - [address] [place] [address] - [facility] Microbiology Results w SusceptibilitiesOrder: Culture UrineIsolate #1:1Escherichia coli (>100,000 cfu/ml)Susceptibility: LOINC Code Drug Interpretation Result Date 1Ampicillin Susceptible <=12/31/2016 17:37 32-3 1Ampicillin/Sul Susceptible <=12/31/2016 bactam 17:37 76-0 1Cefazolin Susceptible <=12/31/2016 17:37 37206-1 1Cefepime Susceptible <=12/31/2016 17:37 85534-3 1Ceftriaxone Susceptible <=12/31/2016 17:37 185-9 1Ciprofloxacin Susceptible <=0.25 12/31/2016 17:37 267-5 1Gentamicin Susceptible <=12/31/2016 17:37 96614-6 1Levofloxacin Susceptible <=0.12 12/31/2016 17:37 1Nitrofurantoin Susceptible <=12/31/2016 (ftn) 17:37 412-7 1Piperacillin/t Susceptible <=12/31/2016 azobactam 17:37 508-2 1Tobramycin Susceptible <=12/31/2016 17:37 516-5 1Trimethoprim/S Susceptible <=12/31/2016 ulfamethoxazole 17:37 Performing Lab Footnotes:[facility] [id number] [facility] [address] [place] [address] - [facility] Radiology Results Order: CTHDWO CT Head or Brain WO/ ContrastExam Completion Date:12/31/2016 17:07INDICATION: found on floorCT Head or Brain WO/Contrast:Technique: Axial acquisitions were obtained through the brain withoutcontrast. Preliminary reading provided by virtual radiology at the time ofstudy acquisition. Study is being submitted for final interpretation on.Comparison: 10/04/2012 There is mild age-related cerebral atrophy. There is decreased density withinthe white matter. This is nonspecific, though may reflect chronicmicrovascular ischemia. The findings have significantly progressed whencompared with the previous exam. The wall-white matter interface ismaintained. There is no midline shift or mass effect. The basilar cisternsremain patent. There is no evidence for acute intracranial hemorrhage. No masslesions or edema to suggest acute ischemia.IMPRESSION: Extensive white matter changes which have progressed from theprior exam. No acute intracranial hemorrhage.Released ByIGLESIA MOSLEY, MDDate: 01/04/2017 08:47Order: CTCERWO CT Cerv Spine WO/ContrastExam Completion Date:12/31/2016 17:07INDICATION : found on floorCT Cerv Spine WO/Contrast:Axial acquisitions were obtained with coronal and sagittal reconstructions.Comparison: 10/04/2012Findings: There is straightening of normal cervical lordosis. Alignment ismaintained. No fractures are seen. There is degenerative disc disease at everylevel. This has progressed compared to the prior exam. A large amount ofdegenerative soft tissue calcification/pannus at the C1-2 articulationpossibly from calcium hydroxyapatite deposition. Multilevel disccalcification. There is uncovertebral joint spurring at several levelsprobably resulting in foraminal narrowing. Scanning through the lung apicesdemonstrates groundglass attenuation both upper lobes which may be frominfiltrate or fibrosis. This has progressed compared to the prior exam.IMPRESSION: diffuse cervical spondylosis. No acute fracture.Released By IGLESIA MOSLEY, MDDate: 01/04/2017 08:53 Vital Signs Vitals Value Date Body Temperature 98 F 12/31/2016 Respiratory Rate 18 12/31/2016 O2% BldC Oximetry 99 12/31/2016 BP Systolic 183 mmHg 12/31/2016 BP Diastolic 79 mmHg 12/31/2016 Weight Measured 160.32 lbs 12/31/2016 Plan of Care No data in the system Procedures No data in the system Encounters Date Code Diagnosis Status (ICD10) - F5203IF ABRASION OTH PRT HEAD INITIAL Active ENC Immunizations Vaccine Code Code System Vaccine Name Date Status 141 CVX Influenza, 01/10/2016 Completed seasonal, injectable Functional Status No data in the system Hospital Discharge Instructions No data in the system
--- OUTSIDE RECORDS SUMMARY | 2017-06-21 11:56 | External Medical Summary | Continuity of Care Document ---
:1930 Author Organization [facility] Care Team Providers Name Role Phone YAYO FRAGA Admitting Physician YAYO FRAGA Attending Physician Hospital Admission Diagnosis Code Admission Diagnosis Date MIXED HYPERLIPIDEMIA Social History Element Code Description Smoking Start Date End Date Description Status Code System Smoking Status [id number] Never smoker SNOMED-CT Problems Code Code System Problem Name Start Date End Date Status 32543997 SNOMED-CT Hypertensive 02/21/2016 Active disorder LESIONS ON LUNGS Unknown Active 170937247 SNOMED-CT 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 Medications [...] dilute/mix in a full glass of water) 132374 Rosuvastatin 10 Oral orally every Active calcium 10 MG milligram day Oral Tablet Cetirizine 0 Oral orally every No milligram day Longer Active Crestor 10 mg by Mouth by Mouth No every other Longer day Active 61039 fexofenadine 0 Oral orally every No milligram [...] Test Result Flag Range Units Date 2345-7 116 H 70-105 mg/dl 06/10/2016 1Glucose 08:45 SerPl-mCnc 3094-0 16 7-25 mg/dl 06/10/2016 1BUN 08:45 SerPl-mCnc 2160-0 0.9 0.6-1.3 mg/dl 06/10/2016 1Creat 08:45 SerPl-mCnc 82923-7 18 13-39 06/10/2016 1Creat/Urea 08:45 nit SerPl 2951-2 145 135-145 mmol/L 06/10/2016 1Sodium 08:45 SerPl-sCnc 95131-9 3.8 3.5-5.1 mmol/L 06/10/2016 1Potassium 08:45 SerPl-mCnc 2075-0 107 98-107 mmol/l 06/10/2016 1Chloride 08:45 SerPl-sCnc 2028-9 29 21-31 mmol/l 06/10/2016 1CO2 08:45 SerPl-sCnc 26035-4 13 9-16 mmol/L 06/10/2016 1Anion Gap 08:45 SerPl-sCnc 2692-2 302 H 277-298 mOsm/kg 06/10/2016 1Osmolality 08:45 SerPl 39543-2 9.4 8.2-10.0 mg/dl 06/10/2016 1Calcium 08:45 SerPl-mCnc [...] 60-116 GFRunits 06/10/2016 1GFR 08:45 Performing Lab Footnotes:[facility] [id number] - [address] [place] [address] - [place] Order: Lipid PanelLegend: D=Delta, H=High, L=Low, HH=Critical High, LL= Critical Low, AA=Critical Alpha-Numeric, C=Corrected, A=Abnormal LOINC Test Result Flag Range Units Date 2092-06 165 <=200 mg/dL 06/10/2016 1[facility] 127 <=150 mg/dL 06/10/2016 1Trigl 08:45 [facility] 2085-9 70 23-92 mg/dl 06/10/2016 1HDLc 08:45 [facility] 14692-8 70 31-179 mg/dl 06/10/2016 1LDLc SerPl 08:45 Calc-[facility] 12496-8 25 8-28 mg/dL 06/10/2016 1VLDLc 08:45 [facility] [place] 1LDL and VLDL calculations not valid when triglycerides >400mg/dl Performing Lab Footnotes:[facility] - [id number] - [address] [place] [address] - [place] ED[place] Vital Signs No data in the system Plan of Care No data in the system Procedures No data in the system Encounters Date Code Diagnosis Status (ICD10) - E782 MIXED HYPERLIPIDEMIA Active Immunizations No data in the system Functional Status No data in the system Hospital Discharge Instructions No data in the system
--- OUTSIDE RECORDS SUMMARY | 2017-06-21 11:56 | External Medical Summary | Continuity of Care Document ---
:1930 Author Organization [facility] Address [address] [place] [address] Care Team Providers Name Role Phone Mora Garay MD Unavailable Unavailable Insurance Providers Payer Name Policy Number Subscriber Name Relationship Medicare [id number] Anita Mena Self / Same As Patient [employer] Senior Supplement [id number] Anita Mena Self / Same As Patient Advance Directives Directive Response Recorded Date/Time Do You Have A Living Will? No 07/20/16 3:12pm Do You Have a DPOA? Yes 07/20/16 3:12pm Problems No problem information available. Medications Current Home Medications Medication Dose Units Route Directions Days/Qty Instructions Start Date Aspirin 81 Mg 81 Mg Oral Daily 3 Multivitamins 1 Tab 1 Tab Oral Daily 3 Calcium Carbonate 1 1 Tab Oral Tab 3 Rosuvastatin Calcium 10 Mg Oral (Crestor 10 Mg) 10 Mg 3 Potassium Chloride 10 2 Tablet Twice A Day Meq/100 Ml 3 Albuterol Sulfate 2 Puffs Inhalation Daily 1 3 Hydrochlorothiazide 25 Mg Oral 25 Mg 3 Chlorothiazide 500 Mg 500 Mg Oral 3 Fexofenadine Hcl 180 Mg Oral Daily 30 (Liss 180 Mg) 180 3 Mg Melatonin/Pyridoxine 1 Each Oral Bedtime Hcl 1 Each 3 Polyethylene Glycol As Needed 3350 17 Gm 3 [place]-3 Fatty Acids 1 Cap Oral (Fish Oil) 1 Cap 3 Sennosides 8.6 Mg 8.6 Mg Oral 3 Salmeterol 1 Puff Inhalation Twice A Day 1 Xinafoate/Fluticasone 3 14 Puff/1 Disk Budesonide/Formoterol 10.2 Gm Inhalation Twice A Day Fumarate 10.2 Gm 3 Social History Social History Problem Response Recorded Date/Time History of Street Drugs? No 11/15/2012 7:00pm Hx Alcohol Use No 11/15/2012 7:00pm Hospital Discharge Instructions No hospital discharge instructions. Plan of Care Discharge Date 07/20/16 11:59pm Prescriptions See Medication Section Functional Status No functional status results. Allergies, Adverse Reactions, Alerts Allergen Type Severity Reaction Status Last Updated zolpidem tartrate Allergy Severe Active 11/15/12 Temazepam Adverse Reaction Severe Confusion Active 10/21/12 Zolpidem Adverse Reaction Severe Confusion Active 10/21/12 Remeron Allergy Severe Active 11/15/12 Immunizations No immunization records. Vital Signs No known vital signs results. Results No known relevant diagnostic tests, laboratory data and/or discharge summary. Procedures Procedure Status Date Provider(s) X-ray of chest, PA and lateral views Active 07/20/16 Mora Garay MD Encounters Encounter Location Arrival/Admit Date Discharge/Depart Date Attending Provider Departed Clinic [facility] 07/20/16 3:12pm 07/20/16 11:59pm Mora Garay [facility] [place] Departed [facility] 07/20/16 12:19pm 07/20/16 11:59pm Mora Garay [facility] [place]ha [place]OO[place]
--- OUTSIDE RECORDS SUMMARY | 2017-06-21 11:56 | External Medical Summary | Summary of Care ---
:1930 Author Name Collin Solis M.D. Address [address] [place], [place] [id number] Care Team Providers Name Role Phone Tong Mcmanus, Son Unavailable Unavailable Collin Solis M.D. Unavailable Unavailable Gerardo See M.D. Unavailable Unavailable Tim May Unavailable Unavailable Unavailable Unavailable Unavailable Functional Status Functional Status Health Issues Name Dates Details Functional status health issues are not documented Status: Cognitive Status Health Issues Name Dates Details Cognitive status health issues are not documented Status: Problems Name Dates Details Rash (782.1, R21) Status: Active Eczema (692.9, L30.9) Status: Active Pruritus (698.9, L29.9) Status: Active Elevated rheumatoid factor (795.79, R76.8) Status: Active Moderate persistent asthma without complication (493.90, J45.40) Status: Active Medications Name Dates Details Potassium Chloride Nicky ER 20 MEQ Oral Tablet Extended Release TAKE 1 TABLET EVERY 12 HOURS. Quantity: 60 Refills: 4 Tong Mcmanus, Son Start 30-Jul-2011 Active Liss Allergy 180 MG Oral Tablet Refills: 0 Start -September-2012 Active Multiple Vitamin TABS Refills: 0 Start Active Superb Nails Oral Tablet TAKE 1 TABLET DAILY. Refills: 0 Gerardo See M.D. Start Active ZyrTEC Allergy 10 MG Oral Tablet Take 1 tablet daily Refills: 0 Mayi Mcmanus, Gerardo Start Active Symbicort 80-4.5 MCG/ACT Inhalation Aerosol INHALE 2 PUFFS TWICE DAILY. RINSE MOUTH AFTER USE. Quantity: 1 Refills: 11 Collin Solis M.D. Start 13-May-2015 Active 10.2 GM Inhaler Aspirin Adult Low Dose 81 MG Oral Tablet Delayed Release TAKE 1 TABLET DAILY. Refills: 0 Start 10-Feb-2016 Active Crestor 10 MG Oral Tablet TAKE 1 TABLET DAILY. Refills: 0 Start 10-Feb-2016 Active Benadryl Allergy 25 MG Oral Tablet TAKE 1 TABLET AT BEDTIME. Refills: 0 Start 10-Feb-2016 Active Allergies and Adverse Reactions Name Dates Details No Known Drug Allergies (Allergy) Status: Active Past Medical History Name Dates Details History of pneumonia (V12.61, Z87.01) Status: Resolved History of solitary pulmonary nodule (V12.69, Z87.898) Status: Resolved Procedures Procedure Dates Details History of Hysterectomy Procedures not documented Immunization Name Dates Details Immunizations not documented Family History Mother Name Dates Details Family history of Mother At Age ____ Status: Active Father Name Dates Details Family history of Father At Age ____ Status: Active Social History Name Dates Details - Status: Smoking Status Name Dates Details Never smoker Vital Signs Date Test Result Details 10-Feb-2016 15:30 BP Systolic 136 mm[Hg] Status: Comments: Location: ; Position: BP Diastolic 82 mm[Hg] Status: Comments: Location: ; Position: Heart Rate 78 /min Status: Comments: Location: ; Height 65 in Status: Weight 183 lb Status: Physical Findings 98 Status: Comments: O2 Saturation Body Mass Index Calculated 30.45 kg/m2 Status: Body Surface Area Calculated 1.9 m2 Status: Results Date Description Value Details Results not documented Plan of Care Name Dates Details Planned Observations Planned Goals not documented Planned Encounters Appointment; Provider: Rona Montenegro On 24-Aug-2016 13:15 Interventions Provided Medication ChangesSymbicort 80-4.5 MCG/ACT Inhalation Aerosol - Renew Instructions Name Dates Details Instructions not documented Encounters Appointment; Collin Solis M.D. On 13-May-2015 Encounter Diagnosis: Problem not documented 13:45 Appointment; Royal Blanton M.D. On Encounter Diagnosis: Problem not documented 14:00 Appointment; Gerardo eSe M.D. On Encounter Diagnosis: Problem not documented 09:45
--- OUTSIDE RECORDS SUMMARY | 2017-06-21 11:56 | External Medical Summary | Continuity of Care Document ---
:1930 Author Organization [facility] Address [address] [place] [address] Care Team Providers Name Role Phone Mora Garay MD Unavailable Unavailable Insurance Providers Payer Name Policy Number Subscriber Name Relationship Medicare [id number] Anita Mena Self / Same As Patient [employer] Senior Supplement [id number] Anita Mena Self / Same As Patient [...] Glycol As Needed 3350 17 Gm 3 [place]-3 Fatty Acids 1 Cap Oral (Fish Oil) [...] Date Discharge/Depart Date Attending Provider Departed Clinic [facility] 07/20/16 3:12pm 07/20/16 11:59pm Mora Garay [facility] [place] Radha DOOLEY Departed [facility] 07/20/16 12:19pm 07/20/16 11:59pm Mora Garay [facility] [place] Radha DOOLEY
--- OUTSIDE RECORDS SUMMARY | 2017-06-21 11:56 | External Medical Summary | Continuity of Care Document ---
:1930 Author Organization [facility] Care Team Providers Name Role Phone YAKOV ESPINOSA Admitting Physician YAKOV ESPINOSA Attending Physician Hospital Admission Diagnosis No data in the System Social History Element Code Description Smoking Start Date End Date Description Status Code System Smoking Status 673417888 Never smoker SNOMED-CT Problems Code Code System Problem Name Start Date End Date Status LESIONS ON Unknown Active LUNGS 667964025 SNOMED-CT Allergy to Unknown Active pollen Medications RxNorm Medication Dose Route Instructions Indications Start End Status Date Date 119 Aspirin 81 Oral orally every Active milligram day Budesonide 2 Inhalation inhaled every Active inhalation 12 hours Cetirizine 0 Oral orally every Active milligram day fexofenadine 0 Oral orally every Active milligram day 20010515 montelukast 10 10 Oral orally every Active MG Oral Tablet milligram evening Multivitamins 1 capsule Oral orally every Active day Potassium 75 10 Oral orally every Active MG Oral Tablet milligram day (administer with a meal and dilute/mix in a full glass of water) Crestor 10 mg by Mouth by Mouth No every other Longer day Active Allergies No Known Allergies Results Laboratory Results Order: Thyroid Stimulating HormoneLegend: D =Delta, H=High, L=Low, HH=Critical High, LL=Critical Low, AA=Critical Alpha- Numeric, C=Corrected, A=Abnormal LOINC Test Result Flag Range Units Date 2.41 0.34-5.60 uIU/ml 04/18/2015 1TSH 15:37 Performing Lab Footnotes:[facility] [id number] - [address] [place] [id number] - [place] Vital Signs No data in the system Plan of Care No data in the system Procedures No data in the system Encounters No data in the system Immunizations No data in the system Functional Status No data in the system Hospital Discharge Instructions No data in the system
--- OUTSIDE RECORDS SUMMARY | 2017-06-21 11:56 | External Medical Summary | Continuity of Care Document ---
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 Medications RxNorm Medication Dose Route Instructions Indications Start End Status Date Date 59 Alprazolam 0.25 oral orally 2 Active milligram times per day 1191 Aspirin 81 oral orally every Active milligram day Budesonide 2 Inhalation inhaled every Active inhalatio 12 hours n 227628 Cimetidine 200 200 oral orally Active MG Oral Tablet milligram (administer with meals;) 3498 Diphenhydramine 25 oral orally every Active milligram day at bedtime 483737 Escitalopram 10 10 oral orally every Active MG Oral Tablet milligram day 94975 Loratadine 10 oral orally every Active milligram day Multivitamins 1 capsule oral orally every Active day 6292751 NITROFURANTOIN, 100 oral orally every Active MACROCRYSTALS [...] every Active MG Oral Tablet milligram day 238266 Rosuvastatin 10 oral orally every Active calcium 10 MG milligram day Oral Tablet Cetirizine 0 oral orally every No milligram day Longer Active Crestor 10 mg by Mouth by Mouth No every other Longer day Active 42894 fexofenadine 0 oral orally every No milligram day Longer Active 20010515 montelukast 10 10 oral orally every No MG Oral Tablet milligram evening Longer Active Allergies Code Code Allergy Type Reaction Severity Start End Status System Substance Date Date 798963 RXNorm Ambien Drug Unknown 01/05/20 Active allergy 17 83351 RXNorm Paroxetine Drug Unknown 01/05/20 Active allergy 17 896557 RXNorm Remeron Drug Unknown 01/05/20 Active allergy 17 64272 RXNorm Temazepam Drug Unknown 01/05/20 Active allergy 17 RXNorm Wheat Flour Drug Unknown 02/21/20 Active allergy 16 RXNorm MISC-FOOD Food Itchy skin Unknown 02/21/20 Active allergy eruption 16 Results Laboratory Results Order: UrinalysisLegend: D=Delta, H=High, L =Low, HH=Critical High, LL=Critical Low, AA=Critical Alpha-Numeric, C=Corrected , A=Abnormal LOINC Test Result Flag Range Units Date 5778-6 Light Yellow 01/17/2017 1Color Ur 11:57 55408-4 Clear 01/17/2017 1Clarity Ur 11:57 2966-0 1Sp 1.015 1.005-1.030 01/17/2017 Gr 24h Ur 11:57 2756-5 1pH 7.0 5.0-7.0 01/17/2017 Ur 11:57 64043-0 Negative NEGATIVE 01/17/2017 1Leukocyte 11:57 esterase Ur-aCnc 08956-6 Negative NEGATIVE 01/17/2017 1Nitrite Ur Ql 11:57 Strip.auto 21200-8 Negative NEGATIVE 01/17/2017 1Prot 11:57 Tiss-mCnt 2349-9 100 mg/dL * NEGATIVE 01/17/2017 1Glucose Ur Ql 11:57 88567-2 1MEK Negative NEGATIVE 01/17/2017 Ur-mCnc 11:57 1977-8 Negative NEGATIVE 01/17/2017 1Bilirub Ur Ql 11:57 64964-3 0.2 <=1.0 01/17/2017 1Urobilinogen 11:57 Ur Ql 933-2 1Bld Negative NEGATIVE 01/17/2017 Prod Typ BPU 11:57 78080-8 N 01/17/2017 1Micro UrnS 11:57 [facility]forming [facility]notes[id number] [address] [place] [id number] [place] [address] [place] Vital Signs No data in the system Plan of Care No data in the system Procedures No data in the system Encounters Date Code Diagnosis Status (ICD10) - Z9181 HISTORY OF FALLING Active Immunizations Vaccine Code Code System Vaccine Name Date Status 141 CVX Influenza, 01/10/2016 Completed seasonal, injectable Functional Status No data in the system Hospital Discharge Instructions No data in the system
--- OUTSIDE RECORDS SUMMARY | 2017-06-21 11:56 | External Medical Summary | Continuity of Care Document ---
:1930 Author Organization [facility] Care Team Providers Name Role Phone ABRAHAM SCHUMACHER Admitting Physician Unavailable ABRAHAM SCHUMACHER Attending Physician Unavailable DR YAYO CLAYTON Primary Care Physician Hospital Admission Diagnosis No data in the System Social History Element Code Description Smoking Start Date End Date Description Status Code System Smoking Status [id number] Unknown if ever SNOMED-CT smoked Problems Code Code System Problem Name Start Date End Date Status 76074766 SNOMED-CT Hypertensive 02/21/2016 Active disorder LESIONS ON LUNGS Unknown Active 525023576 SNOMED-CT 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 Medications RxNorm Medication Dose Route Instructions Indications Start End Status Date Date 596 Alprazolam 0.25 Oral orally 2 Active milligram times per day 1191 Aspirin 81 Oral orally every Active milligram day Budesonide 2 Inhalation inhaled every Active inhalatio 12 hours n 455173 Cimetidine 200 200 Oral orally Active MG Oral Tablet milligram (administer with meals;) 3498 Diphenhydramine 25 Oral orally every Active milligram day at bedtime 881569 Escitalopram 10 10 Oral orally every Active MG Oral Tablet milligram day 04680 Loratadine 10 Oral orally every Active milligram day Multivitamins 1 capsule Oral orally every Active day 5790730 NITROFURANTOIN, 100 Oral orally every Active MACROCRYSTALS milligram 12 hours 25 MG / (administer Nitrofurantoin, with a Monohydrate 75 meal/food; MG Oral Capsule swallow whole; do not open, crush, dissolve , or chew;) Ocuvite 1 Oral orally every Active tablet-ca day psule Potassium 75 MG 20 Oral orally every Active Oral Tablet milliequi day valent (administer with a meal and dilute/mix in a full glass of water) 19800711 prednisolone 5 5 Oral orally every Active MG Oral Tablet milligram day 738770 Rosuvastatin 10 Oral orally every Active calcium 10 MG milligram day Oral Tablet Cetirizine 0 Oral orally every No milligram day Longer Active Crestor 10 mg by Mouth by Mouth No every other Longer day Active 14950 fexofenadine 0 Oral orally every No milligram day Longer Active 335652 montelukast 10 10 Oral orally every No MG Oral Tablet milligram evening Longer Active Allergies Code Code Allergy Type Reaction Severity Start End Status System Substance Date Date 544961 RXNorm Ambien Drug Unknown 01/05/20 Active allergy 17 99410 RXNorm Paroxetine Drug Unknown 01/05/20 Active allergy 17 793166 RXNorm Remeron Drug Unknown 01/05/20 Active allergy 17 05032 RXNorm Temazepam Drug Unknown 01/05/20 Active allergy [...] 179 lbs 01/04/2017 BSA (Body Surface Area) 1.04762 01/04/2017 BMI (Body Mass Index) 28 01/04/2017 [...]
--- OUTSIDE RECORDS SUMMARY | 2017-06-21 11:56 | External Medical Summary | Summary of Care ---
:1930 Author Name Collin Solis M.D. Address [address] [place], [place] [id number] Care Team Providers Name Role Phone Lamar Knowles Unavailable Unavailable Tong Mcmanus, Son Unavailable Unavailable Collin Solis M.D. Unavailable Unavailable Mayi Mcmanus, Gerardo Unavailable Unavailable Tim May Unavailable Unavailable Unavailable [...] Tablet TAKE 1 TABLET DAILY. Refills: 0 Mayi Mcmanus, Gerardo Start Active ZyrTEC Allergy 10 MG Oral Tablet Take 1 tablet daily Refills: 0 Mayijohn Mcmanus, Gerardo Start Active Symbicort 80-4.5 MCG/ACT Inhalation Aerosol INHALE 2 PUFFS TWICE DAILY. RINSE MOUTH AFTER USE. Quantity: 1 Refills: 11 Rhea P.A., Lamar Start 13-May-2015 Active 10.2 GM Inhaler Aspirin [...] Appointment; Provider: Rona Montenegro On 24-Aug-2016 13:15 Instructions Name Dates Details Instructions not documented Encounters Appointment; Collin Solis M.D. On 13-May-2015 Encounter Diagnosis: Problem not documented 13:45 Appointment; Royal Blanton M.D. On Encounter Diagnosis: Problem not documented 14:00 Appointment; Gerardo See M.D. On Encounter Diagnosis: Problem not documented 09:45
--- OUTSIDE RECORDS SUMMARY | 2017-06-21 11:56 | External Medical Summary | Continuity of Care Document ---
:1930 Author Organization [facility] Care Team Providers Name Role Phone IDANIA NEFF Admitting Physician IDANIA NEFF Attending Physician Hospital Admission Diagnosis Code Admission Diagnosis Date [id number] Dizziness and giddiness Social History Element Code Description Smoking Start Date End Date Description Status Code System Smoking Status 397256400 Never smoker SNOMED-CT Problems Code Code System Problem Name Start Date End Date Status 48976066 SNOMED-CT Hypertensive 02/21/2016 Active disorder LESIONS ON LUNGS Unknown Active 356367779 SNOMED-CT 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 Medications [...] dilute/mix in a full glass of water) 745570 Rosuvastatin 10 Oral orally every Active calcium 10 MG milligram day Oral Tablet Cetirizine 0 Oral orally every No milligram day Longer Active Crestor 10 mg by Mouth by Mouth No every other Longer day Active 75620 fexofenadine 0 Oral orally every No milligram [...] 10^3/mm3 02/21/2016 1WBC # Bld 13:02 Auto 39665-4 4.07 4.00-5.20 10^6/mm3 02/21/2016 1Retics # 13:02 Auto 29837-0 13.3 12.0-16.0 g/dl 02/21/2016 1Hgb 13:02 BldV-mCnc [...] 10^3/mm3 02/21/2016 1Platelet # 13:02 Bld Auto 33368-3 9.3 7.4-10.4 02/21/2016 1PMV Bld 13:02 68929-0 71.5 40.0-74.0 % 02/21/2016 1Neutrophils 13:02 # CSF 14.3 14.0-46.0 % 02/21/2016 1LYMPH% 13:02 64554-0 8.4 4.0-13.0 % 02/21/2016 1CD43 Ag Tiss 13:02 Ql ImStn 711-2 5.4 H 0.0-4.0 % 02/21/2016 1Eosinophil # 13:02 Bld Auto 704-7 0.4 <=3.0 % 02/21/2016 1Basophils # 13:02 Bld Auto 751-8 5.2 1.8-7.8 02/21/2016 1Neutrophils 13:02 # Bld Auto 03450-4 1.0 0.7-4.5 02/21/2016 1Lymphocytes 13:02 # Bld 48910-6 0.6 0.1-1.0 02/21/2016 1CD43 Ag Tiss 13:02 Ql ImStn 711-2 0.39 <=4.00 02/21/2016 1Eosinophil # 13:02 Bld Auto 704-7 0.03 <=0.20 02/21/2016 1Basophils # 13:02 Bld Auto N 02/21/2016 1MANDIFF 13:02 99248-0 N 02/21/2016 1RBC Bld Auto 13:02 Performing Lab Footnotes:[id number] [address] [place] [id number] [place] [address] [place] Order: Comprehensive Metabolic PanelLegend: D=Delta, H=High, L=Low, HH= Critical High, LL=Critical Low, AA=Critical Alpha-Numeric, C=Corrected, A= Abnormal LOINC Test Result Flag Range Units Date 2345-7 115 H 70-105 mg/dl 02/21/2016 1Glucose 13:02 SerPl-mCnc 3094-0 22 7-25 mg/dl 02/21/2016 1BUN 13:02 SerPl-mCnc 2160-0 0.9 0.6-1.3 mg/dl 02/21/2016 1Creat 13:02 SerPl-mCnc 08653-4 24 13-39 02/21/2016 1Creat/Urea 13:02 nit SerPl 2951-2 138 135-145 mmol/L 02/21/2016 1Sodium 13:02 SerPl-sCnc 37723-4 4.2 3.5-5.1 mmol/L 02/21/2016 1Potassium 13:02 SerPl-mCnc 2075-0 102 98-107 mmol/l 02/21/2016 1Chloride 13:02 SerPl-sCnc 2028-9 29 21-31 mmol/l 02/21/2016 1CO2 13:02 SerPl-sCnc 14809-4 11 9-16 mmol/L 02/21/2016 1Anion Gap 13:02 SerPl-[facility] 2692-2 290 277-298 mOsm/kg 02/21/2016 1Osmolality 13:02 SerPl 78786-7 9.6 8.2-10.0 mg/dl 02/21/2016 1Calcium 13:02 SerPl-mCnc 1742-6 27 7-52 IU/L 02/21/2016 1ALT 13:02 [facility]-8 30 13-39 IU/L 02/21/2016 1AST 13:02 [facility]Pl[facility] 1715-2 63 34-104 U/L 02/21/2016 1ACP 13:02 [facility]Pl[facility] 1975-2 0.7 0.3-1.0 mg/dl 02/21/2016 1Bilirub 13:02 SerPl-[facility] 2885-2 7.7 6.0-8.3 g/dL 02/21/2016 1Prot 13:02 SerPl-nc 1751-7 4.6 3.5-5.7 g/dl 02/21/2016 1Albumin 13:02 SerPl-nc 2336-6 3.1 2.3-3.2 g/dL 02/21/2016 1Globulin 13:02 Ser-nc 1759-0 1.5 1.2-2.0 02/21/2016 1Albumin/Dayanara 13:02 b SerPl 64 60-116 GFRunits 02/21/2016 1GFR 13:02 Performing Lab Footnotes:[facility] - [id number] - [address] [place] [address] [place] Order: Troponin ILegend: D=Delta, H=High, L=Low, HH=Critical High, LL=Critical Low, AA=Critical Alpha-Numeric, C=Corrected, A=Abnormal LOINC Test Result Flag Range Units Date 24866-9 <0.06 0.00-0.06 ng/ml 02/21/2016 1Troponin I ng/ml 13:02 SerPl DL<=0.01 ng/mL-mCnc Troponin Interpretive Ranges:(96% sensitivity and 94% specificity)<=0.06 ng/mL=no detectable cardiac injury0.06 - 0.49 ng/mL=cardiac muscle injury>=0.5 ng'mL=myocardial infarction Performing Lab Footnotes:[facility] - [id number] - [address] [place] [address] - [facility] Order: Urinalysis With Microscopic ExamLegend: D=Delta, H=High, L=Low, HH= Critical High, LL=Critical Low, AA=Critical Alpha-Numeric, C=Corrected, A= Abnormal LOINC Test Result Flag Range Units Date 5778-6 Color Ur Yellow 6 13:02 83807-9 Clarity Cloudy Ur 6 13:02 2966-0 Sp Gr 1.020 1.005-1.030 24h Ur 6 13:02 2756-5 pH Ur 6.5 5.0-7.0 6 13:02 98536-5 Large * NEGATIVE Leukocyte esterase 6 13:02 Ur-aCnc 17043-7 Nitrite Negative NEGATIVE Ur Ql Strip.auto 6 13:02 43665-0 Prot Negative NEGATIVE Tiss-mCnt 6 13:02 9-9 Glucose Negative NEGATIVE Ur Ql 6 13:02 69260-1 MEK Negative NEGATIVE Ur-mCnc 6 13:02 1977-8 Bilirub Negative NEGATIVE Ur Ql 6 13:02 933-2 Bld Prod Trace-lysed * NEGATIVE Typ BPU 6 13:02 59044-2 0.2 <=1.0 Urobilinogen Ur Ql 6 13:02 1WBC_UM 40-50 * 0-5 /HPF 6 13:02 5808-1 1RBC # 2-5 * 0-5 /HPF UrnS HPF 6 13:02 5787-7 1Epi 2-5 * 0-2 /HPF Cells #/area UrnS 6 13:02 HPF 56575-3 Many /HPF 1Bacteria UrnS Ql 6 13:02 Micro 56142-6 1Mucous Small Amount * NONE PRESENT /HPF Threads #/area 6 13:02 UrnS HPF 9842-6 1Casts Occasional /lpf #/area UrnS LPF Hyaline casts 6 13:02 55206-5 1C trach Y UrnS Ql Cult 6 13:02 Performing Lab Footnotes:[facility] - [id number] - [address] [place] [address] - [facility] [place] Microbiology Results w SusceptibilitiesOrder: Culture UrineComments:1No Family Physician ListedIsolate #1:1Escherichia coli (>100, 0000 cfu/ml)Susceptibility: LOINC Code Drug Interpretation Result Date 1Ampicillin Resistant >=32 02/21/2016 13:02 32-3 1Ampicillin/Sul Susceptible 4 02/21/2016 bactam 13:02 76-0 1Cefazolin Susceptible <=4 02/21/2016 13:02 83479-0 1Cefepime Susceptible <=1 02/21/2016 13:02 41159-7 1Ceftriaxone Susceptible <=1 02/21/2016 13:02 185-9 1Ciprofloxacin Susceptible <=0.25 02/21/2016 13:02 267-5 1Gentamicin Susceptible <=1 02/21/2016 13:02 85317-6 1Levofloxacin Susceptible <=0.12 02/21/2016 13:02 1Nitrofurantoin Susceptible <=16 02/21/2016 (ftn) 13:02 412-7 1Piperacillin/t Susceptible <=4 02/21/2016 azobactam 13:02 508-2 1Tobramycin Susceptible <=1 02/21/2016 13:02 516-5 1Trimethoprim/S Susceptible <=20 02/21/2016 ulfamethoxazole 13:02 Performing Lab Footnotes:[facility] - [id number] - [address] [place] [address] - [facility] Vital Signs Vitals Value Date Body Temperature 97.2 F 02/21/2016 Respiratory Rate 18 02/21/2016 O2% BldC Oximetry 95 02/21/2016 BP Systolic 160 mmHg 02/21/2016 BP Diastolic 105 mmHg 02/21/2016 Height 67 in 02/21/2016 Weight Measured 173 lbs 02/21/2016 BSA (Body Surface Area) 1.56004 02/21/2016 BMI (Body Mass Index) 27.1 02/21/2016 Plan of Care No data in the system Procedures No data in the system Encounters Date Code Diagnosis Status (ICD10) - R42 DIZZINESS AND GIDDINESS Active Immunizations No data in the system Functional Status No data in the system Hospital Discharge Instructions No data in the system
--- OUTSIDE RECORDS SUMMARY | 2017-06-21 11:56 | External Medical Summary | Summary of Care ---
:1930 Author Name Royal Blanton M.D. Address [address], [place] [id number] Care Team Providers Name Role Phone Lamar [...]
--- OUTSIDE RECORDS SUMMARY | 2017-06-21 11:56 | External Medical Summary | Continuity of Care Document ---
:1930 Author Organization [facility] 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 Social History Element Code Description Smoking Start Date End Date Description Status Code System Smoking Status 739625279 Never smoker SNOMED-CT Problems Code Code System Problem Name Start Date End Date Status LESIONS ON Unknown Active LUNGS 348349494 SNOMED-CT Allergy to Unknown Active pollen Medications RxNorm Medication Dose Route Instructions Indications Start End Status Date Date 1191 Aspirin 81 Oral orally every Active milligram day Budesonide 2 Inhalation inhaled every Active inhalation 12 hours Cetirizine 0 Oral orally every Active milligram day 77661 fexofenadine 0 Oral orally every Active milligram [...] 0.34-5.60 uIU/ml 04/18/2015 1TSH 15:37 Performing Lab Footnotes:[facility] - [id number] - [address], [place] [address] Vital Signs No data in the system Plan of Care No data in the system Procedures No data in the system Encounters Date Code Diagnosis Status (ICD10) - E018 OTH I-DEFIC REL THR Active D/O&ALLIED COND Immunizations No data in the system Functional Status No data in the system Hospital Discharge Instructions No data in the system
--- OUTSIDE RECORDS SUMMARY | 2017-06-21 11:56 | External Medical Summary | Continuity of Care Document ---
:1930 Author Organization [facility] Care Team Providers Name Role Phone ABRAHAM SCHUMACHER Admitting Physician Unavailable ABRAHAM SCHUMACHER Attending Physician Unavailable DR YAYO CLAYTON Primary Care Physician Hospital Admission Diagnosis No data in the System Social History Element Code Description Smoking Start Date End Date Description Status Code System Smoking Status [id number] Never smoker SNOMED-CT Problems Code Code System Problem Name Start Date End Date Status 62307972 SNOMED-CT Hypertensive 02/21/2016 Active disorder LESIONS ON LUNGS Unknown Active 057517174 SNOMED-CT 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 Medications RxNorm Medication Dose Route Instructions Indications Start End Status Date Date 596 Alprazolam 0.25 Oral orally 2 Active milligram times per day 1191 Aspirin 81 Oral orally every Active milligram day Budesonide 2 Inhalation inhaled every Active inhalatio 12 hours n 3498 Diphenhydramine 25 Oral orally every Active milligram day at bedtime 39357 Loratadine 10 Oral orally every Active milligram day Multivitamins 1 capsule Oral orally every Active day Ocuvite 1 Oral orally every Active tablet-ca day psule Potassium 75 MG 20 Oral orally every Active Oral Tablet milliequi day valent (administer with a meal and dilute/mix in a full glass of water) 015691 Rosuvastatin 10 Oral orally every Active calcium 10 MG milligram day Oral Tablet Cetirizine 0 Oral orally every No milligram day Longer Active Crestor 10 mg by Mouth by Mouth No every other Longer day Active 82796 fexofenadine 0 Oral orally every No milligram [...] Date 5778-6 Yellow 12/31/2016 1Color Ur 17:37 78921-5 Cloudy 12/31/2016 1Clarity Ur 17:37 2966-0 1Sp 1.010 1.005-1.030 12/31/2016 Gr 24h Ur 17:37 2756-5 1pH >=9.0 H 5.0-7.0 12/31/2016 Ur 17:37 45567-4 Trace * NEGATIVE 12/31/2016 1Leukocyte 17:37 esterase Ur-aCnc 29130-1 Negative NEGATIVE 12/31/2016 1Nitrite Ur Ql 17:37 Strip.auto 20462-4 100 mg/dL * NEGATIVE 12/31/2016 1Prot 17:37 Tiss-mCnt 2349-9 250 mg/dL * NEGATIVE 12/31/2016 1Glucose Ur Ql 17:37 65314-8 1MEK Negative NEGATIVE 12/31/2016 Ur-mCnc 17:37 1977-8 Negative NEGATIVE 12/31/2016 1Bilirub Ur Ql 17:37 933-2 1Bld Negative NEGATIVE 12/31/2016 Prod Typ BPU 17:37 71485-6 1.0 <=1.0 12/31/2016 1Urobilinogen 17:37 Ur Ql 0-2 * 0-5 /HPF 12/31/2016 1WBC_UM 17:37 5787-7 1Epi 0-2 0-2 /HPF 12/31/2016 Cells #/area 17:37 UrnS HPF 67918-6 Full Field /HPF 12/31/2016 1Bacteria UrnS 17:37 Ql Micro 14046-9 few Calcium /HPF 12/31/2016 1Crystals Phosphate 17:37 #/area UrnS HPF 73235-6 1C Y 12/31/2016 trach UrnS Ql 17:37 Cult Performing Lab Footnotes:[id number] [address] [place] [address] [place] Order: CBC With Automated DifferentialLegend: D=Delta, H=High, L=Low, HH= Critical High, LL=Critical Low, AA=Critical Alpha-Numeric, C=Corrected, A= Abnormal LOINC Test Result Flag Range Units Date 6690-2 5.4 4.5-11.0 10^3/mm3 12/31/2016 1WBC # Bld 17:10 Auto 48345-4 3.54 L 4.00-5.20 10^6/mm3 12/31/2016 1Retics # 17:10 Auto 66265-1 11.5 L 12.0-16.0 g/dl 12/31/2016 1Hgb 17:10 [...] 10^3/mm3 12/31/2016 1Platelet # 17:10 Bld Auto 52624-8 8.7 7.4-10.4 12/31/2016 1PMV Bld 17:10 59657-8 59.5 40.0-74.0 % 12/31/2016 1Neutrophils 17:10 # CSF 20.9 14.0-46.0 % 12/31/2016 1LYMPH% 17:10 50165-5 12.1 4.0-13.0 % 12/31/2016 1CD43 Ag Tiss 17:10 Ql ImStn 711-2 7.1 H 0.0-4.0 % 12/31/2016 1Eosinophil # 17:10 Bld Auto 704-7 0.4 <=3.0 % 12/31/2016 1Basophils # 17:10 Bld Auto 751-8 3.2 1.8-7.8 12/31/2016 1Neutrophils 17:10 # Bld Auto 16634-6 1.1 0.7-4.5 12/31/2016 1Lymphocytes 17:10 # Bld 96647-3 0.7 0.1-1.0 12/31/2016 1CD43 Ag Tiss 17:10 Ql ImStn 711-2 0.38 <=4.00 12/31/2016 1Eosinophil # 17:10 Bld Auto 704-7 0.02 <=0.20 12/31/2016 1Basophils # 17:10 Bld Auto N 12/31/2016 1MANDIFF 17:10 09894-4 N 12/31/2016 1RBC Bld Auto 17:10 Performing Lab Footnotes:[address] [place] [address] - [id number] - [address] [place] [address] - [facility] Order: ISTAT Chem 8Legend: D=Delta, H=High, L=Low, HH=Critical High, LL= Critical Low, AA=Critical Alpha-Numeric, C=Corrected, A=Abnormal LOINC Test Result Flag Range Units Date 2951-2 138 135-145 mmol/L 12/31/2016 1Sodium 17:10 SerPl-sCnc 97875-6 3.6 3.5-5.1 mmol/L 12/31/2016 1Potassium 17:10 SerPl-[facility] 2075-0 104 98-107 mmol/l 12/31/2016 1Chloride 17:10 SerPl-[facility] 15739-8 1.11 L 1.12-1.32 mmol/L 12/31/2016 1Calcium 17:10 XXX-[facility] 2345-7 201 H 70-105 mg/dl 12/31/2016 1Glucose 17:10 SerPl-[facility] 3094-0 18 7-25 mg/dl 12/31/2016 1BUN 17:10 SerPl-[facility] 2028-9 22 21-31 mmol/l 12/31/2016 1CO2 17:10 SerPl-[facility] 2160-0 0.7 0.6-1.3 mg/dl 12/31/2016 1Creat 17:10 SerPl-[facility] 18703-3 16 9-16 mmol/L 12/31/2016 1Anion Gap 17:10 SerPl-[facility] 79 60-116 GFRunits 12/31/2016 1GFR 17:10 Performing Lab Footnotes:[facility] - [id number] - [address] [place] [address] - [facility] Vital Signs Vitals Value Date Body [...]
--- OUTSIDE RECORDS SUMMARY | 2017-06-21 11:56 | External Medical Summary | Continuity of Care Document ---
:1930 Author Organization [facility] Care Team Providers Name Role Phone DEVORA LYNN Admitting Physician DEVORA LYNN Attending Physician DR YAYO CLAYTON Primary Care Physician Hospital Admission Diagnosis Code Admission Diagnosis Date [id number] Abrasion of head Social History Element Code Description Smoking Start Date End Date Description Status Code System Smoking Status 221786923 Unknown if ever SNOMED-CT smoked Problems Code Code System Problem Name Start Date End Date Status 90882987 SNOMED-CT Hypertensive 02/21/2016 Active disorder LESIONS ON LUNGS Unknown Active 646202457 SNOMED-CT 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 Medications RxNorm Medication Dose Route Instructions Indications Start End Status Date Date 596 Alprazolam 0.25 oral orally 2 Active milligram times per day 1191 Aspirin 81 oral orally every Active milligram day 4654702 Budesonide 0.08 2 Inhalation inhaled every Active MG/ACTUAT / inhalatio 12 hours formoterol n fumarate 0.0045 MG/ACTUAT Metered Dose Inhaler 739577 Cimetidine 200 200 oral orally Active MG Oral Tablet milligram (administer with meals;) 3498 Diphenhydramine 25 oral orally every Active milligram day at bedtime 785059 Escitalopram 10 10 oral orally every Active MG Oral Tablet milligram day 95782 Loratadine 10 oral orally every Active milligram day Multivitamins 1 capsule oral orally every Active day 4897716 NITROFURANTOIN, 100 oral orally every Active MACROCRYSTALS [...] dilute/mix in a full glass of water) 437241 prednisolone 5 5 oral orally every Active MG Oral Tablet milligram day 918849 Rosuvastatin 10 oral orally every Active calcium 10 MG milligram day Oral Tablet Cetirizine 0 oral orally every No milligram day Longer Active Crestor 10 mg by Mouth by Mouth No every other Longer day Active 95462 fexofenadine 0 oral orally every No milligram day Longer Active 20010515 montelukast 10 10 oral orally every No MG Oral Tablet milligram evening Longer Active Allergies Code Code Allergy Type Reaction Severity Start End Status System Substance Date Date 070576 RXNorm Ambien Drug Unknown 01/05/20 Active allergy 17 63028 RXNorm Paroxetine Drug Unknown 01/05/20 Active allergy 17 605664 RXNorm Remeron Drug Unknown 01/05/20 Active allergy 17 94969 RXNorm Temazepam Drug Unknown 01/05/20 Active allergy [...] By IGLESIA MOSLEY, MDDate: 01/14/2017 15 :49Order: [id number] Knee RT 3 viewsExam Completion Date:01/14/2017 15:05INDICATION : fallKnee RT 3 views: No evidence of knee joint effusion. No acute fractures areseen.Released By IGLESIA MOSLEY, MDDate: 01/14/2017 15:50 Vital Signs Vitals Value Date Respiratory Rate 18 01/14/2017 O2% BldC Oximetry 94 01/14/2017 BP Systolic 187 mmHg 01/14/2017 BP Diastolic 77 mmHg 01/14/2017 Body Temperature 97.1 F 01/14/2017 Height 67 in 01/14/2017 Weight Measured 165 lbs 01/14/2017 BSA (Body Surface Area) 1.8633 01/14/2017 BMI (Body Mass Index) 25.8 01/14/2017 Plan of Care No data in the system Procedures No data in the system Encounters Date Code Diagnosis Status (ICD10) - O5408VU ABRASION OTH PRT HEAD INITIAL Active ENC Immunizations Vaccine Code Code System Vaccine Name Date Status 141 CVX Influenza, 01/10/2016 Completed seasonal, injectable Functional Status No data in the system Hospital Discharge Instructions No data in the system
--- OUTSIDE RECORDS SUMMARY | 2017-06-21 11:57 | External Medical Summary | Summary of Care ---
:1930 Author Name Collin Solis M.D. Address [address] [place], [place] [address] Care Team Providers Name Role Phone Lamar Knowles Unavailable Unavailable Tong Mcmanus, Son Unavailable Unavailable Harvinder Mcmanus, Royal Paulino Unavailable Unavailable Mayi Mcmanus, Gerardo Unavailable Unavailable [...] DAILY Quantity: 30 Refills: 12 Lamar Wilkerson P.A. Started 25-Dec-2013 ActiveSuperb Nails Oral Tablet TAKE 1 TABLET DAILY. Refills: 0 Gerardo See M.D. Started ActiveZyrTEC Allergy 10 MG Oral Tablet Take 1 tablet daily Refills: 0 Gerardo See M.D. Started ActiveHydrOXYzine HCl - 25 MG Oral Tablet Take 1 tablet daily Refills: 0 Gerardo See M.D. Started ActiveTriamcinolone .1%/ Eucerin Compound (50/50 mix) -- 1 pound tub (454 grams) APPLY LIBERALLY TO AFFECTED AREAS TWICE DAILY NEEDED; DISPENSE 454 GM JAR Quantity: 454 Refills: 3 Royal Blanton M.D. Started ActiveSymbicort 80-4.5 MCG/ACT Inhalation Aerosol INHALE 2 PUFFS TWICE DAILY. RINSE MOUTH AFTER USE. Quantity: 1 Refills: 11 Lamar Wilkerson P.A. Started 13-May-2015 Rrjewi20.2 GM Inhaler Allergies and Adverse Reactions Name Dates Details [...] smoker Vital Signs Date Test Result Details 13-May-2015 13:49 BP Systolic 163 mm[Hg] Status: BP Diastolic 81 mm[Hg] Status: Heart Rate 72 /min Status: Weight 177 lb Status: O2 SAT 98 % Status: Body Mass Index Calculated 29.45 kg/m2 Status: Body Surface Area Calculated 1.88 m2 Status: Results Date Description Value Details Results not documented Plan of Care Planned Observations Name Dates Details Planned Goals not documented Goal Planned Encounters Appointment; Provider: Collin Solis On 11-Nov-2015 13:45 Appointment; Provider: Prince Fortune On 23-Jun-2010 16:00 Appointment; Provider: Royal Blanton On 17-Jul-2009 11:45 Instructions Instructions not documented Encounters Appointment; Collin Solis On 13-May-2015 Encounter Diagnosis: Problem not documented 13:45 Appointment; Royal Blanton On Encounter Diagnosis: Problem not documented 14:00 Appointment; Gerardo See On Encounter Diagnosis: Problem not documented 09:45 Appointment; Collin Solis On 25-Dec-2013 Encounter Diagnosis: Problem not documented 14:15
--- OUTSIDE RECORDS SUMMARY | 2017-06-21 11:57 | External Medical Summary | Continuity of Care Document ---
:1930 Author Organization [facility] Care Team Providers Name Role Phone SENIOR RAO CAAL Admitting Phys[facility] Admission Diagnosis Code Admission Diagnosis Date [id number] Abnormal urine Social History Element Code Description Smoking Start Date End Date Description Status Code System Smoking Status 826056186 Unknown if ever SNOMED-CT smoked Problems Code Code System Problem Name Start Date End Date Status 97132389 SNOMED-CT Hypertensive 02/21/2016 Active disorder LESIONS ON LUNGS Unknown Active 672219910 SNOMED-CT 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 Medications RxNorm Medication Dose Route Instructions Indications Start End Status Date Date 596 Alprazolam 0.25 oral orally 2 Active milligram times per day 1191 Aspirin 81 oral orally every Active milligram day 4948269 Budesonide 0.08 2 Inhalation inhaled every Active MG/ACTUAT / inhalatio 12 hours formoterol n fumarate 0.0045 MG/ACTUAT Metered Dose Inhaler Cimetidine 200 200 oral orally Active MG Oral Tablet milligram (administer with meals;) 3498 Diphenhydramine 25 oral orally every Active milligram day at bedtime 563316 Escitalopram 10 10 oral orally every Active MG Oral Tablet milligram day 67275 Loratadine 10 oral orally every Active milligram day Multivitamins 1 capsule oral orally every Active day 1060006 NITROFURANTOIN, 100 oral orally every Active MACROCRYSTALS [...] every Active MG Oral Tablet milligram day 280394 Rosuvastatin 10 oral orally every Active calcium 10 MG milligram day Oral Tablet Cetirizine 0 oral orally every No milligram day Longer Active Crestor 10 mg by Mouth by Mouth No every other Longer day Active 35924 fexofenadine 0 oral orally every No milligram day Longer Active 20010515 montelukast 10 10 oral orally every No MG Oral Tablet milligram evening Longer Active Allergies Code Code Allergy Type Reaction Severity Start End Status System Substance Date Date 13160516 RXNorm Ambien Drug Unknown 01/05/20 Active allergy 17 80721 RXNorm Paroxetine Drug Unknown 01/05/20 Active allergy 17 676189 RXNorm Remeron Drug Unknown 01/05/20 Active allergy 17 40777 RXNorm Temazepam Drug Unknown 01/05/20 Active allergy 17 RXNorm Wheat Flour Drug Unknown 02/21/20 Active allergy 16 RXNorm MISC-FOOD Food Itchy skin Unknown 02/21/20 Active allergy eruption 16 Results Laboratory Results Order: Urinalysis With Microscopic ExamLegend: D=Delta, H=High, L=Low, HH=Critical High, LL=Critical Low, AA= Critical Alpha-Numeric, C=Corrected, A=Abnormal LOINC Test Result Flag Range Units Date 5778-6 Yellow 02/28/2017 1Color Ur 16:30 42986-8 Cloudy 02/28/2017 1Clarity Ur 16:30 2966-0 1Sp 1.015 1.005-1.030 02/28/2017 Gr 24h Ur 16:30 2756-5 1pH 7.0 5.0-7.0 02/28/2017 Ur 16:30 30662-2 Trace * NEGATIVE 02/28/2017 1Leukocyte 16:30 esterase Ur-aCnc 99672-7 Negative NEGATIVE 02/28/2017 1Nitrite Ur Ql 16:30 Strip.auto 13140-2 Negative NEGATIVE 02/28/2017 1Prot 16:30 Tiss-mCnt 2349-9 100 mg/dL * NEGATIVE 02/28/2017 1Glucose Ur Ql 16:30 87881-8 1MEK Negative NEGATIVE 02/28/2017 Ur-mCnc 16:30 1977-8 Negative NEGATIVE 02/28/2017 1Bilirub Ur Ql 16:30 933-2 1Bld Negative NEGATIVE 02/28/2017 Prod Typ BPU 16:30 64963-0 0.2 <=1.0 02/28/2017 1Urobilinogen 16:30 Ur Ql 10-20 * 0-5 /HPF 02/28/2017 1WBC_UM 16:30 67230-7 Many /HPF 02/28/2017 1Bacteria UrnS 16:30 Ql Micro 33957-5 1C Y 02/28/2017 trach UrnS Ql 16:30 Cult [id number] [address] [place] [address] - [facility] Microbiology Results w SusceptibilitiesOrder: Culture UrineIsolate #1:1Escherichia coli (>100,000 cfu/ml)Susceptibility: LOINC Code Drug Interpretation Result Date 1Ampicillin Susceptible <=2 02/28/2017 16:30 32-3 1Ampicillin/Sul Susceptible <=2 02/28/2017 bactam 16:30 76-0 1Cefazolin Susceptible <=4 02/28/2017 16:30 20264-3 1Cefepime Susceptible <=1 02/28/2017 16:30 30660-2 1Ceftriaxone Susceptible <=1 02/28/2017 16:30 185-9 1Ciprofloxacin Susceptible <=0.25 02/28/2017 16:30 267-5 1Gentamicin Susceptible <=1 02/28/2017 16:30 74952-0 1Levofloxacin Susceptible <=0.12 02/28/2017 16:30 1Nitrofurantoin Susceptible <=16 02/28/2017 (ftn) 16:30 412-7 1Piperacillin/t Susceptible <=4 02/28/2017 azobactam 16:30 508-2 1Tobramycin Susceptible <=1 02/28/2017 16:30 516-5 1Trimethoprim/S Susceptible <=20 02/28/2017 ulfamethoxazole 16:30 Performing Lab Footnotes:[address] [place] [address] - [id number] - [address] [place] [address] [facility] Vital Signs No data in the system Plan of Care No data in the system Procedures No data in the system Encounters Date Code Diagnosis Status (ICD10) - R8299 OTHER ABNORMAL FINDINGS IN URINE Active Immunizations Vaccine Code Code System Vaccine Name Date Status 141 CVX Influenza, 01/10/2016 Completed seasonal, injectable Functional Status No data in the system Hospital Discharge Instructions No data in the system
--- OUTSIDE RECORDS SUMMARY | 2017-06-21 11:57 | External Medical Summary | Continuity of Care Document ---
:1930 Author Organization [facility] Care Team Providers Name Role Phone Johnnie CERDA Admitting Physician Unavailable Johnnie CERDA Attending Physician Unavailable Hospital Admission Diagnosis Code Admission Diagnosis Date [id number] Neck pain Social History Element Code Description Smoking Start Date End Date Description Status Code System Smoking Status 525434109 Never smoker SNOMED-CT Problems Code Code System Problem Name Start Date End Date Status 65243438 SNOMED-CT Hypertensive 02/21/2016 Active disorder LESIONS ON LUNGS Unknown Active 800809588 SNOMED-CT 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 Medications [...] dilute/mix in a full glass of water) 670449 Rosuvastatin 10 Oral orally every Active calcium 10 MG milligram day Oral Tablet Cetirizine 0 Oral orally every No milligram day Longer Active Crestor 10 mg by Mouth by Mouth No every other Longer day Active 26609 fexofenadine 0 Oral orally every No milligram [...] 175 lbs 03/14/2016 BSA (Body Surface Area) 1.70573 03/14/2016 BMI (Body Mass Index) 27.4 03/14/2016 Plan of Care No data in the system Procedures No data in the system Encounters Date Code Diagnosis Status (ICD10) - M542 CERVICALGIA Active Immunizations No data in the system Functional Status No data in the system Hospital Discharge Instructions No data in the system
--- OUTSIDE RECORDS SUMMARY | 2017-06-21 11:57 | External Medical Summary | Continuity of Care Document ---
:1930 Author Organization [facility] Address [address] [place] [address] Care Team Providers Name Role Phone Mora Garay MD Unavailable Unavailable Insurance Providers Payer Name Policy Number Subscriber Name Relationship Medicare [id number] Anita Mena Self / Same As Patient [employer] Senior Supplement [id number] Anita Mena Self / Same As Patient Advance Directives Directive Response Recorded Date/Time Do You Have A Living Will? No 09/30/16 3:35pm Do You Have a DPOA? Yes 09/30/16 3:35pm Problems No problem information available. Medications Current [...] Glycol As Needed [address] [place]-3 Fatty Acids 1 Cap Oral (Fish Oil) [...] discharge instructions. Plan of Care Discharge Date 09/30/16 11:59pm Prescriptions See Medication Section Functional Status [...] discharge summary. Procedures Procedure Status Date Provider(s) CHEST X-RAY 2VW FRONTAL&LATL Completed 07/20/16 URINALYSIS AUTO W/O SCOPE Completed 07/20/16 X-ray of chest, PA and lateral views Active 07/20/16 Mora Garay MD Encounters Encounter Location Arrival/Admit Date Discharge/Depart Date Attending Provider Departed [facility] 09/30/16 3:35pm 09/30/16 11:59pm Mora Garay [facility] Maida Garcia MD Departed [facility] 07/20/16 3:12pm 07/20/16 11:59pm Mora Garay MD Departed [facility] 07/20/16 12:19pm 07/20/16 11:59pm Mora Garay [facility] Maida Garcia MD
--- OUTSIDE RECORDS SUMMARY | 2017-06-21 11:57 | External Medical Summary | Continuity of Care Document ---
:1930 Author Organization [facility] Care Team Providers Name Role Phone DR YAYO CLAYTON Admitting Physician DR YAYO CLAYTON Attending Physician Hospital Admission Diagnosis No data in the System Social History Element Code Description Smoking Start Date End Date Description Status Code System Smoking Status 522937842 Unknown if ever SNOMED-CT smoked Problems Code Code System Problem Name Start Date End Date Status 79133829 SNOMED-CT Hypertensive 02/21/2016 Active disorder LESIONS ON LUNGS Unknown Active 431248068 SNOMED-CT 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 Medications RxNorm Medication Dose Route Instructions Indications Start End Status Date Date 59 Alprazolam 0.25 oral orally 2 Active milligram times per day 1191 Aspirin 81 oral orally every Active milligram day Budesonide 2 Inhalation inhaled every Active inhalatio 12 hours n 689374 Cimetidine 200 200 oral orally Active MG Oral Tablet milligram (administer with meals;) 3498 Diphenhydramine 25 oral orally every Active milligram day at bedtime 724276 Escitalopram 10 10 oral orally every Active MG Oral Tablet milligram day 33439 Loratadine 10 oral orally every Active milligram day Multivitamins 1 capsule oral orally every Active day 2443271 NITROFURANTOIN, 100 oral orally every Active MACROCRYSTALS [...] every Active MG Oral Tablet milligram day 766098 Rosuvastatin 10 oral orally every Active calcium 10 MG milligram day Oral Tablet Cetirizine 0 oral orally every No milligram day Longer Active Crestor 10 mg by Mouth by Mouth No every other Longer day Active 49879 fexofenadine 0 oral orally every No milligram day Longer Active 20010515 montelukast 10 10 oral orally every No MG Oral Tablet milligram evening Longer Active Allergies Code Code Allergy Type Reaction Severity Start End Status System Substance Date Date 852447 RXNorm Ambien Drug Unknown 01/05/20 Active allergy 17 23650 RXNorm Paroxetine Drug Unknown 01/05/20 Active allergy 17 534544 RXNorm Remeron Drug Unknown 01/05/20 Active allergy 17 24201 RXNorm Temazepam Drug Unknown 01/05/20 Active allergy 17 RXNorm Wheat Flour Drug Unknown 02/21/20 Active allergy 16 RXNorm MISC-FOOD Food Itchy skin Unknown 02/21/20 Active allergy eruption 16 Results Laboratory Results Order: UrinalysisLegend: D=Delta, H=High, L =Low, HH=Critical High, LL=Critical Low, AA=Critical Alpha-Numeric, C=Corrected , A=Abnormal LOINC Test Result Flag Range Units Date 5778-6 Light Yellow 01/17/2017 1Color Ur 11:57 20026-1 Clear 01/17/2017 1Clarity Ur 11:57 2966-0 1Sp 1.015 1.005-1.030 01/17/2017 Gr 24h Ur 11:57 2756-5 1pH 7.0 5.0-7.0 01/17/2017 Ur 11:57 58863-3 Negative NEGATIVE 01/17/2017 1Leukocyte 11:57 esterase Ur-aCnc 47764-8 Negative NEGATIVE 01/17/2017 1Nitrite Ur Ql 11:57 Strip.auto 63187-8 Negative NEGATIVE 01/17/2017 1Prot 11:57 Tiss-mCnt 2349-9 100 mg/dL * NEGATIVE 01/17/2017 1Glucose Ur Ql 11:57 30176-8 1MEK Negative NEGATIVE 01/17/2017 Ur-mCnc 11:57 1977-8 Negative NEGATIVE 01/17/2017 1Bilirub Ur Ql 11:57 76426-6 0.2 <=1.0 01/17/2017 1Urobilinogen 11:57 Ur Ql 933-2 1Bld Negative NEGATIVE 01/17/2017 Prod Typ BPU 11:57 55294-0 N 01/17/2017 1Micro UrnS 11:57 [facility]forming [facility] Footnotes[id number] [address] [place] [address] - [facility] Vital Signs No data in the [...]
--- OUTSIDE RECORDS SUMMARY | 2017-06-21 11:57 | External Medical Summary | Continuity of Care Document ---
:1930 Author Organization [facility] Care Team Providers Name Role Phone SENIOR RAO CAAL Admitting Physician DR YAYO CLAYTON Attending Physician Hospital Admission Diagnosis Code Admission Diagnosis Date OTHER HALFWAY (CURRENT) DRUG THERAPY Social History Element Code Description Smoking Start Date End Date Description Status Code System Smoking Status 840499131 Unknown if ever SNOMED-CT smoked Problems Code Code System Problem Name Start Date End Date Status 32522279 SNOMED-CT Hypertensive 02/21/2016 Active disorder LESIONS ON LUNGS Unknown Active 316150644 SNOMED-CT 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 Medications RxNorm Medication Dose Route Instructions Indications Start End Status Date Date 596 Alprazolam 0.25 oral orally 2 Active milligram times per day 1191 Aspirin 81 oral orally every Active milligram day 7379036 Budesonide 0.08 2 Inhalation inhaled every Active MG/ACTUAT / inhalatio 12 hours formoterol n fumarate 0.0045 MG/ACTUAT Metered Dose Inhaler 376052 Cimetidine 200 200 oral orally Active MG Oral Tablet milligram (administer with meals;) 3498 Diphenhydramine 25 oral orally every Active milligram day at bedtime 173112 Escitalopram 10 10 oral orally every Active MG Oral Tablet milligram day 09785 Loratadine 10 oral orally every Active milligram day Multivitamins 1 capsule oral orally every Active day 9330391 NITROFURANTOIN, 100 oral orally every Active MACROCRYSTALS [...] every Active MG Oral Tablet milligram day 417742 Rosuvastatin 10 oral orally every Active calcium 10 MG milligram day Oral Tablet Cetirizine 0 oral orally every No milligram day Longer Active Crestor 10 mg by Mouth by Mouth No every other Longer day Active 18237 fexofenadine 0 oral orally every No milligram day Longer Active 20010515 montelukast 10 10 oral orally every No MG Oral Tablet milligram evening Longer Active Allergies Code Code Allergy Type Reaction Severity Start End Status System Substance Date Date 13160516 RXNorm Ambien Drug Unknown 01/05/20 Active allergy 17 54505 RXNorm Paroxetine Drug Unknown 01/05/20 Active allergy 17 439737 RXNorm Remeron Drug Unknown 01/05/20 Active allergy 17 09918 RXNorm Temazepam Drug Unknown 01/05/20 Active allergy 17 RXNorm Wheat Flour Drug Unknown 02/21/20 Active allergy 16 RXNorm MISC-FOOD Food Itchy skin Unknown 02/21/20 Active allergy eruption 16 Results Laboratory Results Order: Urinalysis With Microscopic ExamLegend: D=Delta, H=High, L=Low, HH=Critical High, LL=Critical Low, AA= Critical Alpha-Numeric, C=Corrected, A=Abnormal LOINC Test Result Flag Range Units Date 5778-6 Yellow 03/08/2017 1Color Ur 16:30 29927-2 Cloudy 03/08/2017 1Clarity Ur 16:30 2966-0 1Sp 1.025 1.005-1.030 03/08/2017 Gr 24h Ur 16:30 2756-5 1pH 6.5 5.0-7.0 03/08/2017 Ur 16:30 06860-8 Moderate * NEGATIVE 03/08/2017 1Leukocyte 16:30 esterase Ur-aCnc 13016-4 Positive * NEGATIVE 03/08/2017 1Nitrite Ur Ql 16:30 Strip.auto 66184-2 Negative NEGATIVE 03/08/2017 1Prot 16:30 Tiss-mCnt 2349-9 100 mg/dL * NEGATIVE 03/08/2017 1Glucose Ur Ql 16:30 91500-6 1MEK 5 mg/dL * NEGATIVE 03/08/2017 Ur-mCnc 16:30 1977-8 Negative NEGATIVE 03/08/2017 1Bilirub Ur Ql 16:30 933-2 1Bld Negative NEGATIVE 03/08/2017 Prod Typ BPU 16:30 45989-9 0.2 <=1.0 03/08/2017 1Urobilinogen 16:30 Ur Ql Full Field * 0-5 /HPF 03/08/2017 1WBC_UM 16:30 5808-1 1RBC 2-5 * 0-5 /HPF 03/08/2017 # UrnS HPF 16:30 5787-7 1Epi 5-10 * 0-2 /HPF 03/08/2017 Cells #/area 16:30 UrnS HPF 75992-8 0-1/hpf 03/08/2017 1Trans Cells 16:30 #/area UrnS HPF 18379-5 0-2/hpf 03/08/2017 1Renal Epi 16:30 Cells #/area UrnS HPF 62246-9 Full Field /HPF 03/08/2017 1Bacteria UrnS 16:30 Ql Micro 46780-6 Small Amount * NONE PRESENT /HPF 03/08/2017 1Mucous 16:30 Threads #/area UrnS HPF 9842-6 None /lpf 03/08/2017 1Casts #/area 16:30 UrnS LPF 74511-7 None /HPF 03/08/2017 1Crystals 16:30 #/area UrnS HPF 04952-1 1C Y 03/08/2017 trach UrnS Ql 16:30 Cult Performing Lab Footnotes:[facility] - [id number] - [address] [place] [address] [place] Microbiology Results w SusceptibilitiesOrder: Culture UrineIsolate #1:1Escherichia coli (>100,000 cfu/ml)Susceptibility: LOINC Code Drug Interpretation Result Date 28-1 1Ampicillin Susceptible <=2 03/08/2017 16:30 32-3 1Ampicillin/Sul Susceptible <=2 03/08/2017 bactam 16:30 76-0 1Cefazolin Susceptible <=4 03/08/2017 16:30 48958-2 1Cefepime Susceptible <=1 03/08/2017 16:30 38306-3 1Ceftriaxone Susceptible <=1 03/08/2017 16:30 185-9 1Ciprofloxacin Susceptible <=0.25 03/08/2017 16:30 267-5 1Gentamicin Susceptible <=1 03/08/2017 16:30 97475-5 1Levofloxacin Susceptible <=0.12 03/08/2017 16:30 1Nitrofurantoin Susceptible <=16 03/08/2017 (ftn) 16:30 412-7 1Piperacillin/t Susceptible <=4 03/08/2017 azobactam 16:30 508-2 1Tobramycin Susceptible <=1 03/08/2017 16:30 516-5 1Trimethoprim/S Susceptible <=20 03/08/2017 ulfamethoxazole 16:30 Performing Lab Footnotes:[facility] - [id number] - [address] [place] [address] - [facility] Vital Signs No data in the system Plan of Care No data in the system Procedures No data in the system Encounters Date Code Diagnosis Status (ICD10) - 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
--- OUTSIDE RECORDS SUMMARY | 2017-06-21 11:57 | External Medical Summary | Continuity of Care Document ---
:1930 Author Organization [facility] Care Team Providers Name Role Phone KAYLEY NEWAMN Admitting Physician KAYLEY NEWMAN Attending Physician DR YAYO CLAYTON Primary Care Physician Hospital Admission Diagnosis Code Admission Diagnosis Date [id number] Closed fracture of one rib Social History Element Code Description Smoking Start Date End Date Description Status Code System Smoking Status [id number] Unknown if ever SNOMED-CT smoked Problems Code Code System Problem Name Start Date End Date Status 75023692 SNOMED-CT Hypertensive 02/21/2016 Active disorder LESIONS ON LUNGS Unknown Active [id number] SNOMED-CT 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 Medications RxNorm Medication Dose Route Instructions Indications Start End Status Date Date 596 Alprazolam 0.25 Oral orally 2 Active milligram times per day 1191 Aspirin 81 Oral orally every Active milligram day Budesonide 2 Inhalation inhaled every Active inhalatio 12 hours n 3498 Diphenhydramine 25 Oral orally every Active milligram day at bedtime 69569 Loratadine 10 Oral orally every Active milligram day Multivitamins 1 capsule Oral orally every Active day Ocuvite 1 Oral orally every Active tablet-ca day psule Potassium 75 MG 20 Oral orally every Active Oral Tablet milliequi day valent (administer with a meal and dilute/mix in a full glass of water) 019035 Rosuvastatin 10 Oral orally every Active calcium 10 MG milligram day Oral Tablet Cetirizine 0 Oral orally every No milligram day Longer Active Crestor 10 mg by Mouth by Mouth No every other Longer day Active 09932 fexofenadine 0 Oral orally every No milligram day Longer Active 20010515 montelukast 10 10 Oral orally every No MG Oral Tablet milligram evening Longer Active Allergies Code Code Allergy Type Reaction Severity Start End Status System Substance Date Date RXNorm Wheat Flour Drug Unknown 02/21/20 Active allergy 16 RXNorm MISC-FOOD Food Itchy skin Unknown 02/21/20 Active allergy eruption 16 Results Radiology Results Order: [id number] Thoracic spine 3 viewsExam Completion Date:11/07/2016 10:37INDICATION: FallThoracic spine 3 views: Moderate compression of the T8 vertebral body. Mildcompression of T7. These compression fractures are age indeterminate. Ifclinically indicated and MR examination of the thoracic spine may be helpfulin further evaluation. There are hypertrophic and degenerativechanges in thethoracic spine. The thoracic spine is otherwise negative.Released By CASEY ADAMESate: 11/08/2016 08: 44Order: [id number] Lumbar spine 2 or 3 viewsExam Completion Date:11/07/2016 10: 37INDICATION: FallLUMBAR SPINE 2-VIEWS UPRIGHT (AP & LAT): COMPARISON: NoneFINDINGS: Mild left thoracolumbar scoliosis. Spondylosis. 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 Diffuse facet arthropathy. There areno focal osseous lesions or fractures. Released By OZIEL LOPEZ, CASEYate: 11/08 08:42Order: RBSCXRL Ribs - LT unilateral w CXR (1 view)Exam Completion Date:11/07/2016 10:36INDICATION: FallLEFT RIBS 3-VIEWS UPRIGHT (AP UPPER RIBS, AP LOWER RIBS & OBLIQUE) & PACHEST: COMPARISON: NoneFINDINGS: The heart size and pulmonary vascularity are normal. There is asmall amount of linear fibrosis or platelike atelectasis in the right midlung.Both lungs are otherwise fullyexpanded and clear. There are no effusions.There are multiple old appearing left rib fracture deformities. No definiteacute fractures are seen.Released By CASEY ADAMESate: 11/08/2016 08:41 Vital Signs Vitals Value Date Weight Measured 170.19 lbs 11/07/2016 BSA (Body Surface Area) 1.51841 11/07/2016 BMI (Body Mass Index) 26.7 11/07/2016 Body Temperature 97.8 F 11/07/2016 BP Systolic 144 mmHg 11/07/2016 BP Diastolic 80 mmHg 11/07/2016 Height 67 in 11/07/2016 Respiratory Rate 20 11/07/2016 O2% BldC Oximetry 96 11/07/2016 Plan of Care No data in the system Procedures No data in the system Encounters Date Code Diagnosis Status (ICD10) - [id number] FX 1 RIB LT SIDE INITIAL CLOS FX Active Immunizations Vaccine Code Code System Vaccine Name Date Status 141 CVX Influenza, 01/10/2016 Completed seasonal, injectable Functional Status No data in the system Hospital Discharge Instructions No data in the system
--- OUTSIDE RECORDS SUMMARY | 2017-06-21 11:57 | External Medical Summary | Continuity of Care Document ---
:1930 Author Organization [facility] Care Team Providers Name Role Phone SENIOR RAO CAAL Admitting Physician [facility] Admission Diagnosis No data in the System Social History Element Code Description Smoking Start Date End Date Description Status Code System Smoking Status [id number] Unknown if ever SNOMED-CT smoked Problems Code Code System Problem Name Start Date End Date Status 91279737 SNOMED-CT Hypertensive 02/21/2016 Active disorder LESIONS ON LUNGS Unknown Active 660524068 SNOMED-CT 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 Medications RxNorm Medication Dose Route Instructions Indications Start End Status Date Date 59 Alprazolam 0.25 oral orally 2 Active milligram times per day 1191 Aspirin 81 oral orally every Active milligram day Budesonide 2 Inhalation inhaled every Active inhalatio 12 hours n Cimetidine 200 200 oral orally Active MG Oral Tablet milligram (administer with meals;) 3498 Diphenhydramine 25 oral orally every Active milligram day at bedtime 853242 Escitalopram 10 10 oral orally every Active MG Oral Tablet milligram day 09816 Loratadine 10 oral orally every Active milligram day Multivitamins 1 capsule oral orally every Active day 5371756 NITROFURANTOIN, 100 oral orally every Active MACROCRYSTALS [...] every Active MG Oral Tablet milligram day 518670 Rosuvastatin 10 oral orally every Active calcium 10 MG milligram day Oral Tablet Cetirizine 0 oral orally every No milligram day Longer Active Crestor 10 mg by Mouth by Mouth No every other Longer day Active 55032 fexofenadine 0 oral orally every No milligram day Longer Active 174255 montelukast 10 10 oral orally every No MG Oral Tablet milligram evening Longer Active Allergies Code Code Allergy Type Reaction Severity Start End Status System Substance Date Date 508061 RXNorm Ambien Drug Unknown 01/05/20 Active allergy 17 68659 RXNorm Paroxetine Drug Unknown 01/05/20 Active allergy 17 022641 RXNorm Remeron Drug Unknown 01/05/20 Active allergy 17 48339 RXNorm Temazepam Drug Unknown 01/05/20 Active allergy 17 RXNorm Wheat Flour Drug Unknown 02/21/20 Active allergy 16 RXNorm MISC-FOOD Food Itchy skin Unknown 02/21/20 Active allergy eruption 16 Results Laboratory Results Order: Urinalysis With Microscopic ExamLegend: D=Delta, H=High, L=Low, HH=Critical High, LL=Critical Low, AA= Critical Alpha-Numeric, C=Corrected, A=Abnormal LOINC Test Result Flag Range Units Date 5778-6 Yellow 02/28/2017 1Color Ur 16:30 36871-8 Cloudy 02/28/2017 1Clarity Ur 16:30 2966-0 1Sp 1.015 1.005-1.030 02/28/2017 Gr 24h Ur 16:30 2756-5 1pH 7.0 5.0-7.0 02/28/2017 Ur 16:30 03763-5 Trace * NEGATIVE 02/28/2017 1Leukocyte 16:30 esterase Ur-aCnc 17941-7 Negative NEGATIVE 02/28/2017 1Nitrite Ur Ql 16:30 Strip.auto 35810-9 Negative NEGATIVE 02/28/2017 1Prot 16:30 Tiss-mCnt 2349-9 100 mg/dL * NEGATIVE 02/28/2017 1Glucose Ur Ql 16:30 92490-0 1MEK Negative NEGATIVE 02/28/2017 Ur-mCnc 16:30 1977-8 Negative NEGATIVE 02/28/2017 1Bilirub Ur Ql 16:30 933-2 1Bld Negative NEGATIVE 02/28/2017 Prod Typ BPU 16:30 79552-3 0.2 <=1.0 02/28/2017 1Urobilinogen 16:30 Ur Ql 10-20 * 0-5 /HPF 02/28/2017 1WBC_UM 16:30 01198-0 Many /HPF 02/28/2017 1Bacteria UrnS 16:30 Ql Micro 29422-8 1C Y 02/28/2017 trach UrnS Ql 16:30 Cult Performing Lab Footnotes:1[facility] - [id number] - [address] [place] [id number] [place] [address] Vital Signs No data in the system [...]
--- OUTSIDE RECORDS SUMMARY | 2017-06-21 11:57 | External Medical Summary | Continuity of Care Document ---
:1930 Author Organization [facility] Allergies Active Description Code Type Severity Reaction Onset Reported/ Identified Relationship Clinical to Patient Status Yes No Known 12122 Unknown N/A 07/10/2009 Drug 0 Allergies Yes No Known Misce Unknown N/A 10/04/2012 Allergies llane ous Aller gy Yes Temazepam Drug Severe Confusion 10/21/2012 Aller gy Yes Zolpidem Drug Severe Confusion 10/21/2012 Aller gy Yes temazepam F0060 Drug Severe Confusion 10/21/2012 19124 Aller gy Yes zolpidem F0060 Drug Severe Confusion 10/21/2012 41598 Aller gy Yes Remeron Severe N/A 11/15/2012 Yes zolpidem Drug Severe N/A 11/15/2012 tartrate Aller gy Yes Remeron [place] Severe N/A 11/15/2012 on Yes zolpidem F0000 Drug Severe N/A 11/15/2012 tartrate 54677 Aller gy Yes MISC-FOOD MISC_ Unknown Itchy 02/21/2016 FA skin eruption Yes Wheat Flour 78843 Unknown N/A 02/21/2016 Yes Ambien 9128 Unknown N/A 01/04/2017 Yes Paroxetine 4016 Unknown N/A 01/04/2017 Yes Remeron 42361 Unknown N/A 01/04/2017 Yes Temazepam 1450 Unknown N/A 01/04/2017 Yes Ambien 6022 Misce N/A N/A 05/19/2017 llane ous Aller gy Yes Paroxetine 5949 Misce N/A N/A 05/19/2017 llane ous Aller gy Yes Remeron 7911 Misce N/A N/A 05/19/2017 llane ous Aller gy Yes Temazepam 2481 Misce N/A N/A 05/19/2017 llane ous Aller gy Medications Medication Packaging Start Date Stop Date Route Dosage Sig ATIVAN 05/19/2017 IM 1.000 INJ 2MG/ML 8 KDALTON ATIVAN 05/19/2017 PO 1.000 TAB 1MG 8 KDALTON GEODON 05/19/2017 IM 20.000 INJ 20MG 8 KDALTON NORCO 05/19/2017 PO 1.000 TAB 5MG/325MG 8 KDALTON 05/19/2017 PO 1000.000 TYLENOL EX 500MG 8 KDALTON TAB (ACETAMINOPHEN XANAX 05/19/2017 PO .500 TAB 0.5MG 8 LWRIGHT 05/19/2017 PO 1.000 OCUVITE TAB MVI 8 LWRIGHT 05/19/2017 PO 200.000 TAGAMET TAB 200MG 8 LWRIGHT 05/19/2017 TOP 1.000 TRIAMCINOLONE OINT 8 LWRIGHT 0.1% 15GM 05/19/2017 TOP 1.000 VOLTAREN GEL 8 KDALTON 1% 05/19/2017 TOP 1.000 TRIAMCINOLONE OINT 8 KDALTON 0.1% 15GM 05/19/2017 PO 1.000 OCUVITE TAB MVI 8 KDALTON 05/19/2017 TOP 1.000 EUCERIN CREAM 8 KDALTON 05/20/2017 PO 10.000 PREDNISONE 10 MG 8 LWRIGHT TABS 05/20/2017 PO 10.000 POTASSIUM CHLORIDE 8 KDALTON 10mEq TAB 05/20/2017 PO 1.000 MULTIVITAMIN TAB 8 KDALTON 05/20/2017 PO 10.000 CLARITIN TAB 10MG 8 KDALTON 05/20/2017 PO 20.000 LEXAPRO 20mg 8 KDALTON 05/20/2017 PO 200.000 TAGAMET TAB 200MG 8 KDALTON 05/20/2017 PO 81.000 ASPIRIN EC 81 MG 8 KDALTON TBEC XANAX 05/20/2017 PO .500 TAB 0.5MG 8 KDALTON 05/22/2017 PO 2.500 ZYPREXA ZYDIS TAB 8 SKOHMAN 5MG 05/23/2017 PO 17.000 MIRALAX POWDER 8 KDALTON ORAL ATIVAN 05/25/2017 IM 1.000 INJ 2MG/ML 8 CMUSGROV ATIVAN 05/25/2017 PO 1.000 TAB 1MG 8 CMUSGROV 05/26/2017 TOP 1.000 TRIAMCINOLONE OINT 8 SKOHMAN 0.1% 15GM 05/26/2017 TOP 1.000 VOLTAREN GEL 8 SKOHMAN 1% 05/27/2017 INH 2.000 SYMBICORT 80-4.5 8 LWRIGHT MCG/ACT AERO 05/29/2017 INH 1.000 ALBUTEROL SULFATE 8 AHUMPHRE (2.5 MG/3ML) 0.08 05/29/2017 INH 2.500 ALBUTEROL FOR SVN 8 AHUMPHRE TX 2.5MG/0.5ML 05/29/2017 INH 2.500 ALBUTEROL FOR SVN 8 AHUMPHRE TX 2.5MG/0.5ML NORCO 05/30/2017 PO 1.000 TAB 5MG/325MG 8 SKOHMAN ATIVAN 05/30/2017 PO 1.000 TAB 1MG 8 LWRIGHT ATIVAN 05/30/2017 IM 1.000 INJ 2MG/ML 8 LWRIGHT KEFLEX 05/31/2017 PO 250.000 CAP 250MG 8 BSHORT 06/01/2017 PO 10.000 LISINOPRIL TAB 8 BSHORT 10MG Problems Date Dx Attending Type Code Diagnosis Diagnosed By Coded 12/18/2014 Johnnie CERDA P 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 12/18/2014 Johnnie CERDA S 382.9 UNSPECIFIED OTITIS MEDIA 12/18/2014 Johnnie CERDA A 786.2 COUGH 12/25/2014 DAQUAN COPELAND 272.2 MIXED HYPERLIPIDEMIA J 12/25/2014 DAQUAN COPELAND S 276.8 HYPOPOTASSEMIA J 12/25/2014 DAQUAN COPELAND P 780.79 OTHER MALAISE AND J FATIGUE 04/28/2015 FRANCISCA, P 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 COLI] THE CAUSE OF DISEASES CLASSIFIED ELSEWHERE 03/12/2016 IDANIA NEFF R42 DIZZINESS AND GIDDINESS 03/12/2016 IDANIA NEFF S R82.99 OTHER ABNORMAL FINDINGS IN URINE 03/12/2016 IDANIA NEFF Z16.11 RESISTANCE TO PENICILLINS 04/01/2016 Johnnie CERDA P M54.2 CERVICALGIA 04/01/2016 Johnnie CERDA S S00.83XA CONTUSION OF OTHER PART OF HEAD, INITIAL ENCOUNTER 04/01/2016 Johnnie CERDA S W01.0XXA FALL ON SAME LEVEL FROM SLIPPING, TRIPPING AND STUMBLING WITHOUT SUBSEQUENT STRIKING AGAINST OBJECT, INITIAL ENCOUNTER 04/01/2016 Johnnie CERDA S Y92.[address] IN SINGLE-FAMILY (PRIVATE) HOUSE THE PLACE OF OCCURRENCE OF THE EXTERNAL CAUSE 06/17/2016 YAYO GARAY P E78.2 MIXED HYPERLIPIDEMIA 12/01/2016 S E78.5 HYPERLIPIDEMIA, UNSPECIFIED 12/01/2016 S M47.9 SPONDYLOSIS, UNSPECIFIED 12/01/2016 S M51.36 OTHER INTERVERTEBRAL DISC DEGENERATION, LUMBAR REGION 12/01/2016 S S22.068A OTHER FRACTURE OF T7-T8 THORACIC VERTEBRA, INITIAL ENCOUNTER FOR CLOSED FRACTURE 12/01/2016 P S22.32XA FRACTURE OF ONE RIB, LEFT SIDE, INITIAL ENCOUNTER FOR CLOSED FRACTURE 12/01/2016 S W19.XXXA UNSPECIFIED FALL, INITIAL ENCOUNTER 12/01/[address] IN SINGLE-FAMILY (PRIVATE) HOUSE THE PLACE OF OCCURRENCE OF THE EXTERNAL CAUSE 01/06/2017 ABRAHAM SCHUMACHER S B96.29 OTHER ESCHERICHIA COLI [E. COLI] THE CAUSE OF DISEASES CLASSIFIED ELSEWHERE 01/06/2017 ABRAHAM SCHUMACHER N39.0 URINARY TRACT INFECTION, SITE NOT SPECIFIED 01/06/2017 ABRAHAM SCHUMACHER S R82.99 OTHER ABNORMAL FINDINGS IN URINE 01/06/2017 ABRAHAM SCHUMACHER P S00.81XA ABRASION OF OTHER PART OF HEAD, INITIAL ENCOUNTER 01/06/2017 ABRAHAM SCHUMACHER S W01.0XXA FALL ON SAME LEVEL FROM SLIPPING, TRIPPING AND STUMBLING WITHOUT SUBSEQUENT STRIKING AGAINST OBJECT, INITIAL ENCOUNTER 01/10/2017 ABRAHAM SCHUMACHER P S00.12XA CONTUSION OF LEFT EYELID AND PERIOCULAR AREA, INITIAL ENCOUNTER 01/10/2017 ABRAHAM SCHUMACHER S S01.112A LACERATION WITHOUT FOREIGN BODY OF LEFT EYELID AND PERIOCULAR AREA, INITIAL ENCOUNTER 01/10/2017 ABRAHAM SCHUMACHER W01.0XXA FALL ON SAME LEVEL FROM SLIPPING, TRIPPING AND STUMBLING WITHOUT SUBSEQUENT STRIKING AGAINST OBJECT, INITIAL ENCOUNTER 01/21/2017 MATILDE P Z91.81 HISTORY OF FALLING YAYO CLAYTON 03/08/2017 S B96.20 UNSPECIFIED ESCHERICHIA COLI [E. COLI] THE CAUSE OF DISEASES CLASSIFIED ELSEWHERE 03/08/2017 P R82.99 OTHER ABNORMAL FINDINGS IN URINE 03/14/2017 S B96.20 UNSPECIFIED ESCHERICHIA COLI [E. COLI] THE CAUSE OF DISEASES CLASSIFIED ELSEWHERE 03/14/2017 S R82.99 OTHER ABNORMAL FINDINGS IN URINE 03/14/2017 S Z51.81 ENCOUNTER FOR THERAPEUTIC DRUG LEVEL MONITORING 03/14/2017 P Z79.899 OTHER [facility] (CURRENT) DRUG THERAPY 04/26/2017 SHANE, P S00.81XA ABRASION OF OTHER DEVORA PART OF HEAD, INITIAL ENCOUNTER 04/26/2017 SHANE S S20.211A CONTUSION OF RIGHT DEVORA FRONT WALL OF THORAX, INITIAL ENCOUNTER 04/26/2017 SHANE S S80.01XA CONTUSION OF RIGHT DEVORA KNEE, INITIAL ENCOUNTER 04/26/2017 SHANE S W01.0XXA FALL ON SAME LEVEL DEVORA FROM SLIPPING, TRIPPING AND STUMBLING WITHOUT SUBSEQUENT STRIKING AGAINST OBJECT, INITIAL ENCOUNTER 04/26/[address] IN [facility] THE PLACE OF OCCURRENCE OF THE EXTERNAL CAUSE 04/26/2017 SHANE, S Y93.01 ACTIVITY, WALKING, DEVORA MARCHING AND HIKING 05/10/2017 Sung CLAYTON B96.20 UNSPECIFIED [facility] ESCHERICHIA COLI [E. esequiel MATILDE COLI] THE CAUSE OF DISEASES CLASSIFIED ELSEWHERE 05/10/2017 MATILDE, P R41.0 DISORIENTATION, [facility] UNSPECIFIED esequiel CLAYTON 05/10/2017 MATILDE S R82.99 OTHER ABNORMAL [facility] FINDINGS IN URINE esequiel CLAYTON 05/23/2017 P N39.0 URINARY TRACT INFECTION, SITE NOT SPECIFIED Procedures There is no data. Results Test Result Range URINALYSIS - 05/19/17 11:43 SPECIFIC GRAVITY 1.015 COLOR YELLOW YELLOW CLARITY CLEAR CLEAR GLUCOSE NEGATIVE mg/dl NEGATIVE BILI NEGATIVE NEGATIVE KETONE NEGATIVE NEGATIVE PH 7.0 5.0-7.5 PROTEIN NEGATIVE NEGATIVE UROBILI 0.2 mg/dl 0.2-1.0 NITRITE NEGATIVE NEGATIVE BLOOD NEGATIVE NEGATIVE LEUKOCYT NEGATIVE NEGATIVE WBC 0-2 NONE SEEN RBC NONE NONE SEEN BACTERIA NEGATIVE /LPF NONE SEEN SQ EPI 0-2 /LPF NONE SEEN CBC/ AUTO DIFF - 05/20/17 06:10 WHITE BLOOD COUNT 4.75 10 4.60-10.20 HEMATOCRIT 35.0 % 37.0-47.0 HEMOGLOBIN 11.6 g/dl 12.0-16.0 PLATELET COUNT 224 10 142-424 RBC 3.73 10 4.20-5.40 MCV 93.8 fl 80.0-100.0 MCH 31.1 pg 26.0-34.0 MCHC 33.1 g/dl 29.0-37.0 RDW 13.7 % 11.5-14.5 MPV 9.20 fl GRAN% 44.4 % 37.0-80.0 LYMPH% 37.30 % 10.00-50.00 MONO% 11.80 % 0.00-12.00 EOS% 5.90 % 0.00-7.00 BASO% 0.60 % 0.00-2.50 GRAN# 2.11 10 2.00-6.90 LYMPH# 1.77 10 0.60-3.40 MONO# 0.56 10 0.00-0.90 EOS# 0.28 10 0.00-0.50 BASO# 0.03 10 0.00-0.20 COMPREHENSIVE METABOL - 05/20/17 06:10 CREATININE 0.8 mg/dl 0.6-1.3 SODIUM 140 mmol/L 136-145 TOTAL BILIRUBIN 0.5 mg/dl 0.0-1.0 TOTAL PROTEIN 6.4 g/dl 6.4-8.2 ALBUMIN 3.4 g/dl 3.4-5.0 ALK. PHOSPHATASE 63 U/L 50-136 BUN 12 mg/dl 7-18 CALCIUM 9.1 mg/dl 8.5-10.1 CHLORIDE 104 mmol/L 98-107 CO2 30.7 mmol/L 21.0-32.0 GLUCOSE 92 mg/dl 70-110 POTASSIUM 3.5 mmol/L 3.5-5.1 AST 21 U/L 15-37 ALT 22 U/L 12-78 AGAP 8.8 6.0-16.0 BN/CR 15.0 6.0-20.0 HTSH - 05/20/17 06:10 HTSH 3.75 uiU/ml 0.35-3.74 LIPID PANEL - 05/20/17 06:10 TRIGLYCERIDES 100 mg/dl 0-150 CHOLESTEROL 262 mg/dl 0-200 HDL CHOLESTEROL 95 mg/dl >40- LDL 147 mg/dl 0-130 CULTURE URINE - 05/30/17 06:10 Microbiology Encounters ACCT No. Visit Discharge Status Pt. Type Provider Facility Loc./Unit Complaint Date/Time [id number] 10/04/2012 11/15/2012 DIS [place] [facility] 1641 17:00:00 13:30:00 lexus DOOLEY, [facility] [id number] 09/30/2016 09/30/2016 LIZZ Garay MD, Mora Bobo [facility]. 8724 15:35:00 23:59:00 [facility] [id number] 07/20/2016 07/20/2016 LIZZ Garay MD, Mora Bobo [facility].PVM 5434 15:12:00 23:59:00 nt [facility] [id number] 07/20/2016 07/20/2016 Mora Galeano MD [facility].IMG.RA SOB [id number] 12:19:00 23:59:00 nt [facility] [id number] 08/26/2015 08/26/2015 Jihan Crawford [facility].LAB 9808 15:24:00 23:59:00 nt [facility] [id number] 06/08/4405 Document 00:00:00 Registra tion [id number] 10/08/4326 Document 00:00:00 Registra tion [id number] 12/10/2535 Document 00:00:00 Registra tion [id number] 05/04/2017 ACT Unknown VANNORDEN, 13:18:00 [facility] laurent CLAYTON [id number] 01/17/2017 ACT Unknown VANNORDEN 12:15:00 YAYO CLAYTON [id number] 01/14/2017 ACT Unknown BEQUILLARD Friendly NSER FELL AT 14:32:00 , [facility] [id number] 01/04/2017 ACT Unknown SCHUMACHER, Friendly NSER LACERATION / 07:52:00 [facility] [id number] 12/31/2016 ACT Unknown SCHUMACHER, Friendly NSER HEAD INJURY 17:03:00 [facility] [id number] 11/07/2016 Document 10:09:00 Registra tion [id number] 06/10/2016 ACT Unknown YAYO GARAY NO ORDER 08:28:00 AB [id number] 03/14/2016 ACT Unknown Johnnie CERDA Friendly NSER HEAD INJURY: 20:29:00 E [facility] FELL AND HIT Hospital HEAD ON DINNING ROOM FLOOR [id number] 02/21/2016 ACT Unknown AISHWARYA, Friendly NSER HIGH BLOOD 11:31:00 [facility] [id number] 08/27/2015 ACT Unknown DUERKSEN, 07:39:00 DAQUAN Grimm [id number] 04/18/2015 ACT Unknown FRANCISCA no order 12:50:00 YAKOV Roberson [id number] 12/19/2014 ACT Unknown DUERKSEN, 09:09:00 DAQUAN Grimm [id number] 12/01/2014 ACT Unknown ZAIDA, Johnnie Friendly NSER COUGH 13:26:00 E [facility] [id number] 05/11/1058 Document 00:09:24 Registra noreen [id number] 05/19/2017 06/03/2017 DIS InClayton Barajas PEREZ 10:18:00 11:00:00 [facility]
--- NOTE | 2017-06-21 12:22 | Emergency Department Report ---
Medical Clearance HPI - General Chief complaint: Medical Clearance Stated complaint: [facility] eval Time Seen by Provider: 06/21/17 10:57 Source: patient, RN notes reviewed, old records reviewed, other (Gen screening form) Mode of arrival: ambulatory Limitations: altered mental status (Dementia) - History of Present Illness HPI Narrative: 86yo woman is presented to the ER for [facility] screening. Pt is in an assisted living facility in [facility]. Has been having increasing agitation/ violent outbursts and is trying to run away. Was sent to [facility] for [facility]'s screen to attempt to improve behavioral disturbances related to her dementia. complaint: medical clearance requested Onset (ago): week(s) Reason for Medical Clearance: psychiatric condition (Dementia) Place: home Alleged Intoxication: No Compliant with Home Medications: Yes Traumatic Symptoms: denies traumatic injury Associated Symptoms: denies other symptoms Home medications: Home Medications Medication Instructions Recorded Confirmed ALPRAZolam [Xanax] 0.5 mg PO 1400 06/21/17 06/21/17 Acetaminophen [Acetaminophen Extra 1,000 mg PO TID PRN 06/21/17 06/21/17 Strength] Albuterol Sulfate 2.5 mg AEROSOL Q4H PRN 06/21/17 06/21/17 Aspirin [Aspirin EC] 81 mg PO DAILY 06/21/17 06/21/17 Budesonide/Formoterol 80/4.5 2 puff INH BID 06/21/17 06/21/17 [Symbicort Inhaler] Cimetidine [Cimetidine] 200 mg PO WS 06/21/17 06/21/17 Diclofenac [Voltaren] 1 applicatio TOP PRN PRN 06/21/17 06/21/17 Escitalopram [Lexapro] 20 mg PO DAILY 06/21/17 06/21/17 Eucerin Cream [Eucerin] 1 applicatio TP BID 06/21/17 06/21/17 Hydrocodone/APAP 5/325 [[place] 1 tab PO Q6H PRN 06/21/17 06/21/17 5/325] Lisinopril [Prinivil] 10 mg PO DAILY 06/21/17 06/21/17 Loratadine [Claritin] 10 mg PO DAILY 06/21/17 06/21/17 Multivitamin [One Daily 1 tab PO DAILY 06/21/17 06/21/17 Multivitamin] OLANZapine [Zyprexa] 2.5 mg PO BID 06/21/17 06/21/17 Peg 3350 238 G Bottle [Miralax] 17 gm PO DAILY 06/21/17 06/21/17 Potassium Chloride [Klor-Con M20] 20 meq PO DAILY 06/21/17 06/21/17 Triamcinolone Acetonide 1 applicatio TP BID PRN 06/21/17 06/21/17 Vit A/C/E AC/Znox/Cupric Oxide 1 tab PO BID 06/21/17 06/21/17 [Eye Vitamin-Minerals Tablet] predniSONE [Prednisone] 10 mg PO DAILY 06/21/17 06/21/17 Allergies/Adverse reactions: Allergies Allergy/AdvReac Type Severity Reaction Status Date / Time mirtazapine [From Remeron] Allergy Verified 06/21/17 10:58 paroxetine Allergy Verified 06/21/17 10:58 temazepam Allergy Verified 06/21/17 10:58 zolpidem [From Ambien] Allergy Verified 06/21/17 10:58 Review of Systems All systems: reviewed and negative except as stated Neurological: Reports: as per HPI, confusion. Denies: headache, weakness, numbness, paresthesias, abnormal gait, vertigo PFSH Patient Stated Medical History Dementia Yes Hypotension Yes Asthma Yes - Social History Smoking status: Never smoker Physical Exam - Limitations Limitations: altered mental status (Dementia) - General General appearance: alert, in no apparent distress - Head Head exam: atraumatic, normocephalic, normal inspection - Eye Eye exam: Present: normal appearance, PERRL, EOMI. Absent: scleral icterus - ENT ENT exam: Present: normal exam, normal oropharynx, mucous membranes moist, TM's normal bilaterally, normal external ear exam - Neck Neck exam: Present: normal inspection, full ROM, trachea midline. Absent: tenderness, lymphadenopathy - Chest Chest inspection: Present: normal inspection, symmetric chest wall rise. Absent : tenderness, rash - Respiratory Respiratory exam: Present: normal lung sounds bilaterally. Absent: respiratory distress, wheezes, stridor, prolonged expiratory phase, crackles - Cardiovascular Cardiovascular exam: Present: regular rate, normal rhythm, normal heart sounds. Absent: rubs, gallop, clicks - Abdominal Exam Abdominal exam: Present: soft, normal bowel sounds. Absent: distention, tenderness, guarding, rebound, rigidity - Extremities Exam Extremities exam: Present: normal inspection, full ROM, normal capillary refill. Absent: tenderness, joint swelling - Skin Skin exam: Present: warm, dry, intact. Absent: rash - Neurological Exam Neurological exam: Present: alert, oriented X3, CN II-XII intact, normal gait, reflexes normal. Absent: motor sensory deficit - Psychiatric Psychiatric exam: Present: normal affect, normal mood Course - Consultations Consultation #1: [facility]: Will call for orders and txfr pt. Time: 12:25 Vital Signs Temperature 98.0 F 06/21/17 10:50 Pulse Rate 81 06/21/17 10:50 Respiratory Rate 18 06/21/17 10:50 Blood Pressure 142/78 H 06/21/17 10:50 Pulse Oximetry 95 06/21/17 10:50 Temperature 98.0 F 06/21/17 10:50 Pulse Rate 81 06/21/17 10:50 Respiratory Rate 18 06/21/17 10:50 Blood Pressure 142/78 H 06/21/17 10:50 Pulse Oximetry 95 06/21/17 10:50 Medical Clearance - MDM Narrative Medical decision making narrative: Pt cleared for txfr to [facility]. - Differential Diagnosis Differential Diagnosis Narrative: AD, FTD, delirium, UTI - Medical Records Attestation: I reviewed the patient's medical records. - Lab Data Attestation: I reviewed the patient's lab results. Result diagrams: 06/21/17 11:21 06/21/17 11:21 Lab Results 06/21/17 06/21/17 06/21/17 Range/Units 11:21 11:21 11:34 WBC 7.0 (4.5-11.0) T/MM3 RBC 3.56 L (4.00-5.20) M/MM3 Hgb 11.1 L (12-16) GM/DL Hct 34.6 L (36-46) % MCV 97.2 (80-100) UM3 MCH 31.2 (26-34) UUG MCHC 32.1 (31-37) GM/DL RDW Std Deviation 48.2 (36.9-50.2) FL Plt Count 277 (130-400) T/MM3 MPV 8.6 L (9.4-12.4) UM3 Immature Gran % (Auto) 0.6 H (0.0-0.5) % Neut % (Auto) 80.7 H (33-66) % Lymph % (Auto) 13.0 L (23-45) % Buchanan % (Auto) 4.1 (0-9.0) % Eos % (Auto) 1.3 (0-4) % Baso % (Auto) 0.3 (0-2) % Neut # (Auto) 5.7 (1.8-7.7) T/MM3 Lymph # (Auto) 0.9 L (1-4.8) T/MM3 Buchanan # (Auto) 0.3 (0-0.8) T/MM3 Eos # (Auto) 0.1 (0-0.5) T/MM3 Baso # (Auto) 0.0 (0-0.2) T/MM3 Abs Immat Gran (auto) 0.04 H (0.00-0.03) T/MM3 Turbidity < 20 (0-20) Sodium 144 (134-144) MEQ/L Potassium 4.7 (3.6-5) MEQ/L Chloride 105 (98-107) MEQ/L Carbon Dioxide 29 (22-30) MEQ/L Anion Gap 10 (5-15) MEQ/L BUN 19.0 H (7-17) MG/DL Creatinine 0.8 (0.7-1.2) mg/dL GFR Calculation 68 BUN/Creatinine Ratio 24 (6-26) RATIO Glucose 126 H (65-110) MG/DL Calculated Osmolality 281 H (261-280) MOSM/KG Calcium 9.4 (8.4-10.2) MG/DL Total Bilirubin 0.20 (0.20-1.30) MG/DL Icterus Index < 2 (0-7) AST 30 (14-36) U/L ALT 30 (9-52) U/L Alkaline Phosphatase 72 (38-126) U/L Total Protein 7.0 (6.3-8.2) g/dL Albumin 4.0 (3.5-5.0) g/dL Globulin 3.0 (2.4-3.6) G/DL Albumin/Globulin Ratio 1.3 (1.1-2.2) RATIO Specimen Hemolysis < 15 (0-25) Salicylates < 1.0 L (2-20) MG/DL Urine Opiates Screen Negative ng/mL Ur Oxycodone Screen Negative ng/mL Urine Methadone Screen Negative ng/mL Ur Propoxyphene Screen Negative ng/mL Acetaminophen < 10 L (10-30) UG/ML Ur Barbiturates Screen Negative ng/mL U Tricyclic Antidepress Negative ng/mL Ur Phencyclidine Scrn Negative ng/mL Ur Amphetamines Screen Negative ng/mL U Methamphetamines Scrn Negative ng/mL U Benzodiazepines Scrn Positive ng/mL Urine Cocaine Screen Negative ng/mL U Cannabinoids Screen Negative ng/mL Ur Drug Screen Confirm Alcohol, Quantitative <10 (<10) mg/dL 06/21/17 Range/Units 11:34 WBC (4.5-11.0) T/MM3 RBC (4.00-5.20) M/MM3 Hgb (12-16) GM/DL Hct (36-46) % MCV (80-100) UM3 MCH (26-34) UUG MCHC (31-37) GM/DL RDW Std Deviation (36.9-50.2) FL Plt Count (130-400) T/MM3 MPV (9.4-12.4) UM3 Immature Gran % (Auto) (0.0-0.5) % Neut % (Auto) (33-66) % Lymph % (Auto) (23-45) % Buchanan % (Auto) (0-9.0) % Eos % (Auto) (0-4) % Baso % (Auto) (0-2) % Neut # (Auto) (1.8-7.7) T/MM3 Lymph # (Auto) (1-4.8) T/MM3 [place]anan # (Auto) (0-0.8) T/MM3 Eos # (Auto) (0-0.5) T/MM3 Baso # (Auto) (0-0.2) T/MM3 Abs Immat Gran (auto) (0.00-0.03) T/MM3 Turbidity (0-20) Sodium (134-144) MEQ/L Potassium (3.6-5) MEQ/L Chloride (98-107) MEQ/L Carbon Dioxide (22-30) MEQ/L Anion Gap (5-15) MEQ/L BUN (7-17) MG/DL Creatinine (0.7-1.2) mg/dL GFR Calculation BUN/Creatinine Ratio (6-26) RATIO Glucose (65-110) MG/DL Calculated Osmolality (261-280) MOSM/KG Calcium (8.4-10.2) MG/DL Total Bilirubin (0.20-1.30) MG/DL Icterus Index (0-7) AST (14-36) U/L ALT (9-52) U/L Alkaline Phosphatase (38-126) U/L Total Protein (6.3-8.2) g/dL Albumin (3.5-5.0) g/dL Globulin (2.4-3.6) G/DL Albumin/Globulin Ratio (1.1-2.2) RATIO Specimen Hemolysis (0-25) Salicylates (2-20) MG/DL Urine Opiates Screen ng/mL Ur Oxycodone Screen ng/mL Urine Methadone Screen ng/mL Ur Propoxyphene Screen ng/mL Acetaminophen (10-30) UG/ML Ur Barbiturates Screen ng/mL U Tricyclic Antidepress ng/mL Ur Phencyclidine Scrn ng/mL Ur Amphetamines Screen ng/mL U Methamphetamines Scrn ng/mL U Benzodiazepines Scrn ng/mL Urine Cocaine Screen ng/mL U Cannabinoids Screen ng/mL Ur Drug Screen Confirm Sent out Alcohol, Quantitative (<10) mg/dL Disposition Clinical Impression: Dementia Qualifiers: Dementia type: unspecified type Dementia behavioral disturbance: with behavioral disturbance Qualified Code(s): F03.91 - Unspecified dementia with behavioral disturbance Disposition: 65 To [facility] Print Language: Swedish Condition: Stable Prescriptions: No Action Triamcinolone Acetonide 1 applicatio TP BID PRN PRN Reason: Itching Acetaminophen [Acetaminophen Extra Strength] 1,000 mg PO TID PRN PRN Reason: Pain Hydrocodone/APAP 5/325 [[place] 5/325] 1 tab PO Q6H PRN PRN Reason: Pain Albuterol Sulfate 2.5 mg AEROSOL Q4H PRN PRN Reason: Shortness Of Air/Wheezing Budesonide/Formoterol 80/4.5 [Symbicort Inhaler] 2 puff INH BID OLANZapine [Zyprexa] 2.5 mg PO BID Vit A/C/E AC/Znox/Cupric Oxide [Eye Vitamin-Minerals Tablet] 1 tab PO BID Multivitamin [One Daily Multivitamin] 1 tab PO DAILY predniSONE [Prednisone] 10 mg PO DAILY Potassium Chloride [Klor-Con M20] 20 meq PO DAILY Loratadine [Claritin] 10 mg PO DAILY Lisinopril [Prinivil] 10 mg PO DAILY Escitalopram [Lexapro] 20 mg PO DAILY Peg 3350 238 G Bottle [Miralax] 17 gm PO DAILY Cimetidine [Cimetidine] 200 mg PO WS Aspirin [Aspirin EC] 81 mg PO DAILY Diclofenac [Voltaren] 1 applicatio TOP PRN PRN PRN Reason: Pain Eucerin Cream [Eucerin] 1 applicatio TP BID ALPRAZolam [Xanax] 0.5 mg PO 1400 Referrals: Soham Callejas [Other] Time of Disposition: 12:28 - Seen By: physician
[2017-06-21] MEDS ORDERED: HALOPERIDOL 0.5 MG TABLET PO PRN (13:34)
[2017-06-21] MEDS ORDERED: HALOPERIDOL 5 MG/ML INJECTION IM PRN (13:34)
[2017-06-21 13:47] VITALS: BMI 29.0
[2017-06-21] MEDS ORDERED: HYDROCODONE/APAP 5mg/325mg TABLET PO PRN (14:15)
[2017-06-21] MEDS ORDERED: ACETAMINOPHEN 500 MG TABLET PO PRN (14:15)
[2017-06-21] MEDS ORDERED: DICLOFENAC 1% TOP GEL 100gm TP PRN (14:15)
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
[2017-06-21] MEDS ORDERED: INHALER ASSIST DEVICE (Optichamber) MC ONE (14:45)
[2017-06-21] MEDS ORDERED: TRIAMCINOLONE 0.025% CREAM 15 G TUBE TOP PRN (14:51)
--- NOTE | 2017-06-21 15:47 | CT Scan Report ---
Indication: increased confusion, behavioral change, dementia PROCEDURE: CT head/brain wo con: Encounter: Initial Comparison: None Technique: Axial CT images through the head were performed without contrast. Iterative Reconstruction dose reducing technique was utilized. FINDINGS: Ventricles are moderately dilated, somewhat out of portion to the mild degree of atrophy present. There are extensive confluent white matter hypoattenuating areas throughout the frontal and parietal lobes. The brainstem, cerebellum, and cerebral hemispheres otherwise have a normal morphology and CT attenuation. There is no evidence of midline displacement. No hemorrhage or signs of acute territorial stroke. No mass effect seen. The visualized portions of the skull base, midface, and calvarium demonstrate no abnormality. The paranasal sinuses are well aerated and free of significant disease. The tympanic and mastoid cavities appear normal. 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 .
--- NOTE | 2017-06-21 15:49 | XRay Report ---
INDICATION: altered mental status PROCEDURE: CHEST 2-VIEWS UPRIGHT (PA & LAT) Encounter: Initial COMPARISON: None FINDINGS: Small area of opacity in the right upper lobe just above the minor fissure. Senescent changes in both lungs. No pleural effusion or pneumothorax. Heart size is at the upper limits of normal. Mediastinal contours and pulmonary vascularity appear normal. Age-indeterminate mid thoracic compression fractures. Impression: Right upper lobe opacity could represent scar, atelectasis or mild pneumonia. .
[2017-06-21] MEDS: CIMETIDINE 400 MG TABLET PO SCH (17:58)
[2017-06-21] MEDS: EUCERIN CREAM 57gm TP SCH ×2 (19:41→23:36)
[2017-06-21] MEDS: BUDESONIDE/FORMOTEROL 80/4.5mcg INHALER ORAL INH SCH (21:33)
[2017-06-22] MEDS ORDERED: LORATADINE 10 MG TABLET PO SCH (09:00)
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
[2017-06-22] MEDS: BUDESONIDE/FORMOTEROL 80/4.5mcg INHALER ORAL INH SCH ×2 (10:35→19:53)
[2017-06-22] MEDS: ASPIRIN *EC* 81 MG TABLET PO SCH (12:14)
[2017-06-22] MEDS: LISINOPRIL 10 MG TABLET PO SCH (12:14)
[2017-06-22] MEDS: EUCERIN CREAM 57gm TP SCH ×2 (12:14→20:15)
[2017-06-22] MEDS: POLYETHYL GLYCOL 3350 17gm PACKET PO SCH (12:15)
[2017-06-22] MEDS: SENNA + DOCUSATE TABLET PO SCH (12:15)
[2017-06-22] MEDS: MULTI-VITAMIN + MINERAL TABLET PO SCH (12:15)
[2017-06-22] MEDS: CIMETIDINE 400 MG TABLET PO SCH (17:29)
[2017-06-22] MEDS: LORazepam 0.5 MG TABLET PO PRN (17:29)
[2017-06-22] MEDS ORDERED: ONDANSETRON ODT 4 MG TABLET PO PRN (19:59)
[2017-06-23] MEDS: ALBUTEROL 2.5mg/3ml (0.083%) NEB AEROSOL PRN (06:35)
[2017-06-23] MEDS ORDERED: BUDESONIDE INH.SOLN 0.5mg/2ml NEB AEROSOL PRN (06:50)
[2017-06-23] MEDS: BUDESONIDE/FORMOTEROL 80/4.5mcg INHALER ORAL INH SCH (07:17)
[2017-06-23] MEDS ORDERED: BUDESONIDE INH.SOLN 0.5mg/2ml NEB AEROSOL SCH (08:30)
[2017-06-23] MEDS: POLYETHYL GLYCOL 3350 17gm PACKET PO SCH (09:53)
[2017-06-23] MEDS: LISINOPRIL 10 MG TABLET PO SCH (09:54)
[2017-06-23] MEDS: ASPIRIN *EC* 81 MG TABLET PO SCH (09:54)
[2017-06-23] MEDS: MULTI-VITAMIN + MINERAL TABLET PO SCH (09:54)
[2017-06-23] MEDS: EUCERIN CREAM 57gm TP SCH ×2 (09:54→19:18)
[2017-06-23] MEDS: SENNA + DOCUSATE TABLET PO SCH (09:54)
[2017-06-23] MEDS: LORATADINE 10 MG TABLET PO SCH (09:55)
--- NOTE | 2017-06-23 12:00 | Progress Note ---
- Date 06/23/17 Subjective: Patient is seen sitting in the TV room today. She reports she has no concerns. She has a good appetite. No chest pain or shortness of breath. States she normally doesn't sleep well. States she usually has problems with constipation, but is currently doing fine. Objective Vital signs: Temperature 97.4 F 06/23/17 08:00 Pulse Rate 89 06/23/17 08:00 Respiratory Rate 16 06/23/17 08:00 Blood Pressure 139/69 06/23/17 08:00 Pulse Oximetry 92 06/23/17 08:00 Height/Weight/BMI: Height 1.7 m Weight 83.9 kg Body Mass Index 29.0 - Constitutional Present: no acute distress, well nourished, well developed - Routine HEENT Exam Head: Present: normocephalic, atraumatic - Routine Respiratory Exam Present: CTA bilaterally. Absent: wheezes - Routine Cardiovascular Exam Present: RRR, no murmur - Routine Abdominal Exam Present: soft, non distended, non tender - Routine Extremities Exam Present: no edema, normal capillary refill - Routine Skin Exam Present: dry, warm - Routine Neurological Exam Present: alert - Routine Lymphatic Exam Lymphatic: Absent: adenopathy - Routine Psychiatric Exam Present: normal affect, cooperative Results - Labs CBC & Chem 7: 06/21/17 11:21 06/21/17 11:21 Assessment and Plan (1) Dementia with behavioral disturbance Current visit: Yes Status: Acute Assessment and Plan: Assessment: Dementia with acute behavioral disturbance Acute cellulitis to left forearm, present on admission Anemia, unspecified, present on admission Constipation, acute on chronic Hypertension Hyperlipidemia GERD Asthma Eczema Allergic rhinitis Plan Overall patient is doing well. Chart reviewed. No nursing concerns. - Physician Narrative Narrative: Date: 06/23/17 Time: 1156 Hospital Course Summary Disclaimer: The visit summary below is not to be considered part of the above Progress Note. Hospital Course: Plan - 06/21/17: Agree with admission to [facility] for further psychiatric evaluation and care. Hospitalist service consulted for medical management. Labs in ED relatively unremarkable. Monitor hemoglobin periodically throughout admission. Given behavioral disturbance and anemia, will obtain B12 now. Complete admission work up - will obtain CT head and CXR now. Cellulitis noted to left forearm - marked with skin marker at time of assessment. Initiate Keflex 500mg QID x 7 days. Monitor closely for signs of worsening infection, fever, red streaking. Patient complains of constipation and unknown last BM. Will continue home miralax and add Senna + and milk of magnesia PRN. Continue home lisinopril 10mg daily for hypertension. Continue home Symbicort BID and albuterol nebulizer treatments PRN. Home prednisone 10mg on hold as it is reportedly for "itching" and can cause behavioral issues. Will continue home loratadine, triamcinolone ointment and lotion for dry skin/itching. Upon discharge, patient's care will be returned to her PCP, Dr. Soham Byrd. Patient is a DNR. 06/23/17 Overall patient is doing well. Chart reviewed. No nursing concerns.
--- NOTE | 2017-06-23 14:35 | Neuropsych Progress Note ---
[facility] Subjective Date: 06/24/17 - Sujective/Severity of Illness Medications: Acetaminophen (Tylenol) 1,000 mg PO TID PRN PRN Reason: Pain Albuterol Sulfate (Proventil Neb (0.083%)) 2.5 mg AEROSOL Q4H PRN PRN Reason: Shortness of air/wheezing Last Admin: 06/23/17 06:35 Dose: 2.5 mg Aspirin (Ecotrin) 81 mg PO DAILY [facility] Last Admin: 06/23/17 09:54 Dose: 81 mg Budesonide (Pulmicort Inhalation) 0.5 mg AEROSOL RTBID [facility] Cephalexin HCl (Keflex 500 Mg) 500 mg PO QID [facility] Stop: 06/28/17 15:59 Last Admin: 06/23/17 13:49 Dose: 500 mg Cimetidine (Tagament) 200 mg PO WS [facility] Last Admin: 06/22/17 17:29 Dose: 200 mg Diclofenac Sodium (Voltaren) 1 applic TP PRN PRN PRN Reason: Pain Escitalopram Oxalate (Lexapro) 10 mg PO DAILY [facility] Haloperidol (Haldol) 0.5 mg PO Q6H PRN PRN Reason: Extreme agitation Haloperidol Lactate (Haldol) 0.5 mg IM Q6H PRN PRN Reason: Extreme agitation Lisinopril (Prinivil) 10 mg PO DAILY [facility] Last Admin: 06/23/17 09:54 Dose: 10 mg Loratadine (Claritin) 10 mg PO 0730 [facility] Last Admin: 06/23/17 09:55 Dose: 10 mg Lorazepam (Ativan) 0.5 mg PO Q6H PRN PRN Reason: Extreme agitation Last Admin: 06/22/17 17:29 Dose: 0.5 mg Lorazepam (Ativan Inj) 0.5 mg IM Q6H PRN PRN Reason: Extreme agitation Magnesium Hydroxide (Mom) 30 ml PO DAILY PRN PRN Reason: Constipation Multi-Ingredient Ointment (Eucerin) 1 applic TP BID [facility] Last Admin: 06/23/17 09:54 Dose: 1 applic Multivitamins/Minerals (Therapeutic - M) 1 tab PO DAILY [facility] Last Admin: 06/23/17 09:54 Dose: 1 tab Ondansetron HCl (Zofran Odt Tablet) 4 mg PO Q6H PRN PRN Reason: Nausea &/or vomiting Last Admin: 06/22/17 20:18 Dose: 4 mg Polyethylene Glycol (Miralax) 17 gm PO DAILY [facility] Last Admin: 06/23/17 09:53 Dose: 17 gm Potassium Chloride (K-Dur 20 Meq Tablet) 20 meq PO WB [facility] Last Admin: 06/23/17 09:54 Dose: 20 meq Risperidone (Risperdal) 0.25 mg PO 13,21 [facility] Risperidone (Risperdal) 0.25 mg PO 14 [facility] Senna/Docusate Sodium (Senna Plus Tablet) 1 tab PO DAILY [facility] Last Admin: 06/23/17 09:54 Dose: 1 tab Triamcinolone Acetonide (Kenalog) 1 applic TOP BID PRN PRN Reason: Itching Subjective: Patient seen and chart reviewed. Case discussed with treatment team. On interview, patient is pleasantly confused. She is watching the basketball game. She again gives varying/opposite answers in regards to her mood, all in one sentence. Patient denies any SI, HI or AVH. In communication with patient's son/DPOA, I learned she has been on Xanax 0.5mg daily, Lexapro 20mg and olanzapine 2.5mg PO q HS. She has not received these since coming to our facility. Agreed to restart Lexapro this afternoon at 10mg PO daily, and instead start Risperdal 0.25mg PO BID at 1300 & 2100. Patient did have some afternoon agitation yesterday and was given PRN Ativan at ~1730. Patient has been adherent with medications. She did vomit shortly after suppertime. Patient slept 8.25 hours overnight. VSS. Patient is eating well. Start Time: 13:40 Stop Time: 14:00 Mental Status Exam Vitals: Last Vital Signs Temp 97.4 F 06/23/17 08:00 Pulse 89 06/23/17 08:00 Resp 16 06/23/17 08:00 BP 139/69 06/23/17 08:00 Pulse Ox 92 06/23/17 08:00 Height: 1.7 m Weight: 83.9 kg - Mental Status Exam Muscle Strength/Tone: Normal (no EPS noted on physical exam) Dressing: Casual Grooming: Good Attitude: Cooperative Motor Activity: Retardation Eye Contact: Good Speech: Normal Volume: Normal Rhythm: Appropriate Rhythm Orientation: Disoriented to time, Disoriented to place, Disoriented to situation , Oriented to person Mood: Euthymic Affect: Relaxed (during interview though did have some mood lability on unit in past 24 hours) Rate of Thoughts: Delayed Thought Organization: Confused Associations: Intact Abstract Reasoning: Poor abstract reasoning Thought Content: Normal (other than confusion) Perception/Psychotic: Perception Normal Language: Naming Impaired Fund of Knowledge: Poor fund of knowledge Memory: Poor-immediate, Poor-recent Suicidal Ideation: Denies Homicidal Ideation: Denies Insight: Impaired Judgement: Impaired Impulse Control: Fair (though poor reported by facility) - Laboratory Result Diagrams: 06/21/17 11:21 06/21/17 11:21 Assessment and Plan (1) Major neurocognitive disorder Problem details: Moderate, with behavioral disturbance Etiology unknown. Patient presents clinically as though Alzheimer's may be cause , though FTD and NPH must be considered due to results of imaging. Other medical conditions: Cellulitis in LUE, HTN, HLD, GERD, asthma, constipation, allergic rhinitis R/O Delirium secondary to general medical condition (cellulitis) Current visit: Yes Status: Acute Plan to restart Lexapro at 10mg PO daily starting today, start Risperdal 0.25mg PO BID at 1300 and 2100. Monitor mood/behavior and reponse to treatment. Hospital Course Summary Disclaimer: The visit summary below is not to be considered part of the above Progress Note. Hospital Course: Plan - 06/21/17: Agree with admission to [facility] for further psychiatric evaluation and care. Hospitalist service consulted for medical management. Labs in ED relatively unremarkable. Monitor hemoglobin periodically throughout admission. Given behavioral disturbance and anemia, will obtain B12 now. Complete admission work up - will obtain CT head and CXR now. Cellulitis noted to left forearm - marked with skin marker at time of assessment. Initiate Keflex 500mg QID x 7 days. Monitor closely for signs of worsening infection, fever, red streaking. Patient complains of constipation and unknown last BM. Will continue home miralax and add Senna + and milk of magnesia PRN. Continue home lisinopril 10mg daily for hypertension. Continue home Symbicort BID and albuterol nebulizer treatments PRN. Home prednisone 10mg on hold as it is reportedly for "itching" and can cause behavioral issues. Will continue home loratadine, triamcinolone ointment and lotion for dry skin/itching. Upon discharge, patient's care will be returned to her PCP, Dr. Soham Byrd. Patient is a DNR. 06/23/17 Overall patient is doing well. Chart reviewed. No nursing concerns. 06/24/17 Psych: Will continue to hold home Xanax. Plan to restart Lexapro at 10mg PO daily starting today, start Risperdal 0.25mg PO BID at 1300 and 2100. Monitor mood/behavior and reponse to treatment.
[2017-06-23] MEDS: ESCITALOPRAM 10 MG TABLET PO SCH (15:08)
[2017-06-23] MEDS: CIMETIDINE 400 MG TABLET PO SCH (17:20)
[2017-06-23] MEDS: BUDESONIDE INH.SOLN 0.5mg/2ml NEB AEROSOL SCH (18:50)
[2017-06-24] MEDS: EUCERIN CREAM 57gm TP SCH ×2 (00:35→09:22)
[2017-06-24] MEDS: LORazepam 0.5 MG TABLET PO PRN (02:50)
[2017-06-24] MEDS: BUDESONIDE INH.SOLN 0.5mg/2ml NEB AEROSOL SCH ×2 (09:16→20:51)
[2017-06-24] MEDS: LORATADINE 10 MG TABLET PO SCH (09:17)
[2017-06-24] MEDS: ESCITALOPRAM 10 MG TABLET PO SCH (09:19)
[2017-06-24] MEDS: ASPIRIN *EC* 81 MG TABLET PO SCH (09:19)
[2017-06-24] MEDS: LISINOPRIL 10 MG TABLET PO SCH (09:19)
[2017-06-24] MEDS: MULTI-VITAMIN + MINERAL TABLET PO SCH (09:20)
[2017-06-24] MEDS: POLYETHYL GLYCOL 3350 17gm PACKET PO SCH (09:21)
[2017-06-24] MEDS: SENNA + DOCUSATE TABLET PO SCH (09:21)
[2017-06-24] MEDS: DIVALPROEX 125 MG TABLET PO SCH ×2 (11:51→18:40)
--- NOTE | 2017-06-24 13:59 | Neuropsych Progress Note ---
[facility] Subjective Date: 06/25/17 - Sujective/Severity of Illness Medications: Acetaminophen (Tylenol) 1,000 mg PO TID PRN PRN Reason: Pain Albuterol Sulfate (Proventil Neb (0.083%)) 2.5 mg AEROSOL Q4H PRN PRN Reason: Shortness of air/wheezing Last Admin: 06/23/17 06:35 Dose: 2.5 mg Aspirin (Ecotrin) 81 mg PO DAILY [facility] Last Admin: 06/24/17 09:19 Dose: 81 mg Budesonide (Pulmicort Inhalation) 0.5 mg AEROSOL RTBID [facility] Last Admin: 06/24/17 09:16 Dose: 0.5 mg Cephalexin HCl (Keflex 500 Mg) 500 mg PO QID [facility] Stop: 06/28/17 15:59 Last Admin: 06/24/17 09:19 Dose: 500 mg Cimetidine (Tagament) 200 mg PO WS [facility] Last Admin: 06/23/17 17:20 Dose: 200 mg Diclofenac Sodium (Voltaren) 1 applic TP PRN PRN PRN Reason: Pain Divalproex Sodium (Depakote) 125 mg PO ,18 [facility] Last Admin: 06/24/17 11:51 Dose: 125 mg Escitalopram Oxalate (Lexapro) 10 mg PO DAILY [facility] Last Admin: 06/24/17 09:19 Dose: 10 mg Haloperidol Lactate (Haldol) 0.5 mg IM Q6H PRN PRN Reason: Extreme agitation Lisinopril (Prinivil) 10 mg PO DAILY [facility] Last Admin: 06/24/17 09:19 Dose: 10 mg Loratadine (Claritin) 10 mg PO 0730 [facility] Last Admin: 06/24/17 09:17 Dose: 10 mg Lorazepam (Ativan) 0.5 mg PO Q6H PRN PRN Reason: Extreme agitation Last Admin: 06/24/17 02:50 Dose: 0.5 mg Lorazepam (Ativan Inj) 0.5 mg IM Q6H PRN PRN Reason: Extreme agitation Magnesium Hydroxide (Mom) 30 ml PO DAILY PRN PRN Reason: Constipation Multivitamins/Minerals (Therapeutic - M) 1 tab PO DAILY [facility] Last Admin: 06/24/17 09:20 Dose: 1 tab Ondansetron HCl (Zofran Odt Tablet) 4 mg PO Q6H PRN PRN Reason: Nausea &/or vomiting Last Admin: 06/22/17 20:18 Dose: 4 mg Polyethylene Glycol (Miralax) 17 gm PO DAILY [facility] Last Admin: 06/24/17 09:21 Dose: 17 gm Potassium Chloride (K-Dur 20 Meq Tablet) 20 meq PO WB [facility] Last Admin: 06/24/17 09:19 Dose: 20 meq Senna/Docusate Sodium (Senna Plus Tablet) 1 tab PO DAILY [facility] Last Admin: 06/24/17 09:21 Dose: 1 tab Triamcinolone Acetonide (Kenalog) 1 applic TOP BID PRN PRN Reason: Itching Subjective: Patient seen and chart reviewed. Case discussed with treatment team. On interview, patient is pleasantly confused. In communication with patient's son/DPOA again this morning and discussed possible diagnosis (R/O FTD, R/O NPH) given results of imaging. He does not feel that medical work-up of NPH is feasible at this point. He expresses frustration with previous facilities, fall soon after admission and related complications. Nursing staff report patient was more restless during the evening and overnight yesterday. From the timing, I worry that this was related to the administration of Risperdal and after given PRN Ativan, patient slept remainder of night. Discussed risks/benefits of trial of low-dose Depakote which we started at 125mg PO BID (lunch, dinner) today. Will continue Lexapro as well. No delusional thought content elicited; patient seems to be more living in past memories (consistent with dementia dx) than paranoid or otherwise psychotic. Patient has been adherent with medications. She did vomit shortly after suppertime. Patient eventually slept 8 hours overnight. VSS. Patient is eating well. Start Time: 16:20 Stop Time: 16:40 Mental Status Exam Vitals: Last Vital Signs Temp 97.4 F 06/24/17 08:00 Pulse 100 06/24/17 08:00 Resp 18 06/24/17 09:15 BP 113/60 06/24/17 08:00 Pulse Ox 93 06/24/17 09:15 Height: 1.7 m Weight: 83.9 kg - Mental Status Exam Muscle Strength/Tone: Normal (no EPS noted on physical exam) Dressing: Casual Grooming: Good Attitude: Cooperative Motor Activity: Retardation Eye Contact: Good Speech: Normal Volume: Normal Rhythm: Appropriate Rhythm Orientation: Disoriented to time, Disoriented to place, Disoriented to situation , Oriented to person Mood: Euthymic Affect: Relaxed (during interview, has had some mood lability on unit) Rate of Thoughts: Delayed Thought Organization: Confused Associations: Intact Abstract Reasoning: Poor abstract reasoning Thought Content: Normal (other than confusion) Perception/Psychotic: Perception Normal Language: Naming Impaired Fund of Knowledge: Poor fund of knowledge Memory: Poor-immediate, Poor-recent Suicidal Ideation: Denies Homicidal Ideation: Denies Insight: Impaired Judgement: Impaired Impulse Control: Fair (though poor reported by facility) - Laboratory Result Diagrams: 06/21/17 11:21 06/21/17 11:21 Assessment and Plan (1) Major neurocognitive disorder Problem details: Moderate, with behavioral disturbance Etiology unknown. Patient presents clinically as though Alzheimer's may be cause , though FTD and NPH must be considered due to results of imaging. Other medical conditions: Cellulitis in LUE, HTN, HLD, GERD, asthma, constipation, allergic rhinitis R/O Delirium secondary to general medical condition (cellulitis) Current visit: Yes Status: Acute Per discussion with son, will discontinue antipsychotics and start Depakote DR 125mg PO BID at lunch and dinner. Continue Lexapro 10mg PO daily as well. Hospital Course Summary Disclaimer: The visit summary below is not to be considered part of the above Progress Note. Hospital Course: Plan - 06/21/17: Agree with admission to [facility] for further psychiatric evaluation and care. Hospitalist service consulted for medical management. Labs in ED relatively unremarkable. Monitor hemoglobin periodically throughout admission. Given behavioral disturbance and anemia, will obtain B12 now. Complete admission work up - will obtain CT head and CXR now. Cellulitis noted to left forearm - marked with skin marker at time of assessment. Initiate Keflex 500mg QID x 7 days. Monitor closely for signs of worsening infection, fever, red streaking. Patient complains of constipation and unknown last BM. Will continue home miralax and add Senna + and milk of magnesia PRN. Continue home lisinopril 10mg daily for hypertension. Continue home Symbicort BID and albuterol nebulizer treatments PRN. Home prednisone 10mg on hold as it is reportedly for "itching" and can cause behavioral issues. Will continue home loratadine, triamcinolone ointment and lotion for dry skin/itching. Upon discharge, patient's care will be returned to her PCP, Dr. Soham Byrd. Patient is a DNR. 06/23/17 Overall patient is doing well. Chart reviewed. No nursing concerns. 06/24/17 Psych: Will continue to hold home Xanax. Plan to restart Lexapro at 10mg PO daily starting today, start Risperdal 0.25mg PO BID at 1300 and 2100. Monitor mood/behavior and reponse to treatment. 06/25/17 Psych: Per discussion with son, will discontinue antipsychotics and start Depakote DR 125mg PO BID at lunch and dinner. Continue Lexapro 10mg PO daily as well.
[2017-06-24] MEDS: CIMETIDINE 400 MG TABLET PO SCH (17:07)
[2017-06-24] MEDS: ALBUTEROL 2.5mg/3ml (0.083%) NEB AEROSOL PRN (20:51)
[2017-06-25] MEDS: TRIAMCINOLONE 0.025% CREAM 15 G TUBE TOP PRN ×2 (06:37→19:10)
[2017-06-25] MEDS: BUDESONIDE INH.SOLN 0.5mg/2ml NEB AEROSOL SCH ×3 (07:48→19:57)
[2017-06-25] MEDS: ESCITALOPRAM 10 MG TABLET PO SCH (09:04)
[2017-06-25] MEDS: ASPIRIN *EC* 81 MG TABLET PO SCH (09:04)
[2017-06-25] MEDS: LORATADINE 10 MG TABLET PO SCH (09:04)
[2017-06-25] MEDS: LISINOPRIL 10 MG TABLET PO SCH (09:05)
[2017-06-25] MEDS: MULTI-VITAMIN + MINERAL TABLET PO SCH (09:05)
[2017-06-25] MEDS: SENNA + DOCUSATE TABLET PO SCH (09:05)
[2017-06-25] MEDS: POLYETHYL GLYCOL 3350 17gm PACKET PO SCH (09:06)
[2017-06-25] MEDS: ALBUTEROL 2.5mg/3ml (0.083%) NEB AEROSOL PRN ×2 (10:06→19:57)
--- NOTE | 2017-06-25 10:10 | Neuropsych Progress Note ---
[facility] Subjective Date: 06/25/17 - Sujective/Severity of Illness Medications: Acetaminophen (Tylenol) 1,000 mg PO TID PRN PRN Reason: Pain Last Admin: 06/24/17 21:02 Dose: 1,000 mg Albuterol Sulfate (Proventil Neb (0.083%)) 2.5 mg AEROSOL Q4H PRN PRN Reason: Shortness of air/wheezing Last Admin: 06/25/17 10:06 Dose: 2.5 mg Aspirin (Ecotrin) 81 mg PO DAILY [facility] Last Admin: 06/25/17 09:04 Dose: 81 mg Budesonide (Pulmicort Inhalation) 0.5 mg AEROSOL RTBID [facility] Last Admin: 06/25/17 10:06 Dose: 0.5 mg Cephalexin HCl (Keflex 500 Mg) 500 mg PO Q6H [facility] Stop: 06/28/17 17:55 Cimetidine (Tagament) 200 mg PO WS [facility] Last Admin: 06/24/17 17:07 Dose: 200 mg Diclofenac Sodium (Voltaren) 1 applic TP PRN PRN PRN Reason: Pain Divalproex Sodium (Depakote) 125 mg PO [facility] Last Admin: 06/24/17 18:40 Dose: 125 mg Escitalopram Oxalate (Lexapro) 10 mg PO DAILY [facility] Last Admin: 06/25/17 09:04 Dose: 10 mg Haloperidol Lactate (Haldol) 0.5 mg IM Q6H PRN PRN Reason: Extreme agitation Lisinopril (Prinivil) 10 mg PO DAILY [facility] Last Admin: 06/24/17 09:19 Dose: 10 mg Loratadine (Claritin) 10 mg PO 0730 [facility] Last Admin: 06/25/17 09:04 Dose: 10 mg Lorazepam (Ativan) 0.5 mg PO Q6H PRN PRN Reason: Extreme agitation Last Admin: 06/24/17 02:50 Dose: 0.5 mg Lorazepam (Ativan Inj) 0.5 mg IM Q6H PRN PRN Reason: Extreme agitation Magnesium Hydroxide (Mom) 30 ml PO DAILY PRN PRN Reason: Constipation Last Admin: 06/25/17 09:05 Dose: 30 ml Multivitamins/Minerals (Therapeutic - M) 1 tab PO DAILY [facility] Last Admin: 06/25/17 09:05 Dose: 1 tab Ondansetron HCl (Zofran Odt Tablet) 4 mg PO Q6H PRN PRN Reason: Nausea &/or vomiting Last Admin: 06/22/17 20:18 Dose: 4 mg Polyethylene Glycol (Miralax) 17 gm PO DAILY [facility] Last Admin: 06/25/17 09:06 Dose: Not Given Potassium Chloride (K-Dur 20 Meq Tablet) 20 meq PO WB [facility] Last Admin: 06/25/17 09:04 Dose: 20 meq Senna/Docusate Sodium (Senna Plus Tablet) 1 tab PO DAILY [facility] Last Admin: 06/25/17 09:05 Dose: 1 tab Triamcinolone Acetonide (Kenalog) 1 applic TOP BID PRN PRN Reason: Itching Last Admin: 06/25/17 06:37 Dose: 1 applic Subjective: Patient seen and chart reviewed. Nursing reports pt can be agitated and exit seeking at times but seems improved. Does have some VH at times but these do not appear to be distressing to her. Sleeping well and has a good appetite. On face to face the pt is pleasant. She is oriented x 2. She reports her mood is stable. She denies any pain. Voices no concerns at this time. Tolerating meds Start Time: 10:15 Stop Time: 10:30 Mental Status Exam Vitals: Last Vital Signs Temp 97.0 F 06/25/17 09:11 Pulse 90 06/25/17 09:11 Resp 18 06/25/17 09:11 BP 100/67 06/25/17 09:11 Pulse Ox 95 06/25/17 09:11 Height: 1.7 m Weight: 83.9 kg - Mental Status Exam Muscle Strength/Tone: Normal (no EPS noted on physical exam) Dressing: Casual Grooming: Good Attitude: Cooperative Motor Activity: Retardation Eye Contact: Good Speech: Normal Volume: Normal Rhythm: Appropriate Rhythm Orientation: Disoriented to time, Disoriented to place, Disoriented to situation , Oriented to person Mood: Euthymic Rate of Thoughts: Delayed Thought Organization: Confused Associations: Intact Abstract Reasoning: Poor abstract reasoning Thought Content: Normal (other than confusion) Perception/Psychotic: Perception Normal Language: Naming Impaired Fund of Knowledge: Poor fund of knowledge Memory: Poor-immediate, Poor-recent Suicidal Ideation: Denies Homicidal Ideation: Denies Insight: Impaired Judgement: Impaired Impulse Control: Fair (though poor reported by facility) - Laboratory Result Diagrams: 06/21/17 11:21 06/21/17 11:21 Assessment and Plan (1) Major neurocognitive disorder Problem details: Moderate, with behavioral disturbance Etiology unknown. Patient presents clinically as though Alzheimer's may be cause , though FTD and NPH must be considered due to results of imaging. Other medical conditions: Cellulitis in LUE, HTN, HLD, GERD, asthma, constipation, allergic rhinitis R/O Delirium secondary to general medical condition (cellulitis) Current visit: Yes Status: Acute Hospital Course Summary Disclaimer: The visit summary below is not to be considered part of the above Progress Note. Hospital Course: Plan - 06/21/17: Agree with admission to [facility] for further psychiatric evaluation and care. Hospitalist service consulted for medical management. Labs in ED relatively unremarkable. Monitor hemoglobin periodically throughout admission. Given behavioral disturbance and anemia, will obtain B12 now. Complete admission work up - will obtain CT head and CXR now. Cellulitis noted to left forearm - marked with skin marker at time of assessment. Initiate Keflex 500mg QID x 7 days. Monitor closely for signs of worsening infection, fever, red streaking. Patient complains of constipation and unknown last BM. Will continue home miralax and add Senna + and milk of magnesia PRN. Continue home lisinopril 10mg daily for hypertension. Continue home Symbicort BID and albuterol nebulizer treatments PRN. Home prednisone 10mg on hold as it is reportedly for "itching" and can cause behavioral issues. Will continue home loratadine, triamcinolone ointment and lotion for dry skin/itching. Upon discharge, patient's care will be returned to her PCP, Dr. Soham Byrd. Patient is a DNR. 06/23/17 Overall patient is doing well. Chart reviewed. No nursing concerns. 06/24/17 Psych: Will continue to hold home Xanax. Plan to restart Lexapro at 10mg PO daily starting today, start Risperdal 0.25mg PO BID at 1300 and 2100. Monitor mood/behavior and reponse to treatment. 06/25/17 Psych: Per discussion with son, will discontinue antipsychotics and start Depakote DR 125mg PO BID at lunch and dinner. Continue Lexapro 10mg PO daily as well. 06/25/17 Psych- Pt slightly improved. More calm. Continue current care
[2017-06-25] MEDS: DIVALPROEX 125 MG TABLET PO SCH ×2 (11:58→17:24)
[2017-06-25] MEDS: CIMETIDINE 400 MG TABLET PO SCH (17:23)
[2017-06-25] MEDS: LORazepam 0.5 MG TABLET PO PRN (19:20)
[2017-06-26] MEDS: LISINOPRIL 10 MG TABLET PO SCH ×2 (02:43→08:41)
[2017-06-26] MEDS: BUDESONIDE INH.SOLN 0.5mg/2ml NEB AEROSOL SCH ×2 (08:35→20:35)
[2017-06-26] MEDS: SENNA + DOCUSATE TABLET PO SCH (08:41)
[2017-06-26] MEDS: ASPIRIN *EC* 81 MG TABLET PO SCH (08:41)
[2017-06-26] MEDS: MULTI-VITAMIN + MINERAL TABLET PO SCH (08:41)
[2017-06-26] MEDS: LORATADINE 10 MG TABLET PO SCH (08:41)
[2017-06-26] MEDS: ESCITALOPRAM 10 MG TABLET PO SCH (08:41)
[2017-06-26] MEDS: POLYETHYL GLYCOL 3350 17gm PACKET PO SCH (08:42)
--- NOTE | 2017-06-26 11:25 | Neuropsych Progress Note ---
[facility] Subjective Date: 06/26/17 - Sujective/Severity of Illness Medications: Acetaminophen (Tylenol) 1,000 mg PO TID PRN PRN Reason: Pain Last Admin: 06/24/17 21:02 Dose: 1,000 mg Albuterol Sulfate (Proventil Neb (0.083%)) 2.5 mg AEROSOL Q4H PRN PRN Reason: Shortness of air/wheezing Last Admin: 06/25/17 19:57 Dose: 2.5 mg Aspirin (Ecotrin) 81 mg PO DAILY [facility] Last Admin: 06/26/17 08:41 Dose: 81 mg Budesonide (Pulmicort Inhalation) 0.5 mg AEROSOL RTBID [facility] Last Admin: 06/26/17 08:35 Dose: 0.5 mg Cephalexin HCl (Keflex 500 Mg) 500 mg PO Q6H [facility] Stop: 06/28/17 17:55 Last Admin: 06/26/17 08:40 Dose: 500 mg Cimetidine (Tagament) 200 mg PO WS [facility] Last Admin: 06/25/17 17:23 Dose: 200 mg Diclofenac Sodium (Voltaren) 1 applic TP PRN PRN PRN Reason: Pain Divalproex Sodium (Depakote) 125 mg PO [facility] Last Admin: 06/25/17 17:24 Dose: 125 mg Escitalopram Oxalate (Lexapro) 10 mg PO DAILY [facility] Last Admin: 06/26/17 08:41 Dose: 10 mg Haloperidol Lactate (Haldol) 0.5 mg IM Q6H PRN PRN Reason: Extreme agitation Lisinopril (Prinivil) 10 mg PO DAILY [facility] Last Admin: 06/26/17 08:41 Dose: 10 mg Loratadine (Claritin) 10 mg PO 0730 [facility] Last Admin: 06/26/17 08:41 Dose: 10 mg Lorazepam (Ativan) 0.5 mg PO Q6H PRN PRN Reason: Extreme agitation Last Admin: 06/25/17 19:20 Dose: 0.5 mg Lorazepam (Ativan Inj) 0.5 mg IM Q6H PRN PRN Reason: Extreme agitation Magnesium Hydroxide (Mom) 30 ml PO DAILY PRN PRN Reason: Constipation Last Admin: 06/25/17 09:05 Dose: 30 ml Multivitamins/Minerals (Therapeutic - M) 1 tab PO DAILY [facility] Last Admin: 06/26/17 08:41 Dose: 1 tab Ondansetron HCl (Zofran Odt Tablet) 4 mg PO Q6H PRN PRN Reason: Nausea &/or vomiting Last Admin: 06/22/17 20:18 Dose: 4 mg Polyethylene Glycol (Miralax) 17 gm PO DAILY [facility] Last Admin: 06/26/17 08:42 Dose: Not Given Potassium Chloride (K-Dur 20 Meq Tablet) 20 meq PO WB [facility] Last Admin: 06/26/17 08:42 Dose: 20 meq Senna/Docusate Sodium (Senna Plus Tablet) 1 tab PO DAILY [facility] Last Admin: 06/26/17 08:41 Dose: 1 tab Triamcinolone Acetonide (Kenalog) 1 applic TOP BID PRN PRN Reason: Itching Last Admin: 06/25/17 19:10 Dose: 1 applic Subjective: Patient seen and chart reviewed. Nursing reports pt continues to improve. Sleeping well and has a good appetite. no behaviors noted. On face to face the pt is pleasant but confused. She reports her mood is stable. She denies pain. Tolerating meds. Voices no concerns at this time Start Time: 10:15 Stop Time: 10:30 Mental Status Exam Vitals: Last Vital Signs Temp 97.4 F 06/26/17 08:00 Pulse 69 06/26/17 08:00 Resp 20 06/26/17 08:36 BP 142/70 H 06/26/17 08:00 Pulse Ox 94 06/26/17 08:36 Height: 1.7 m Weight: 83.9 kg - Mental Status Exam Muscle Strength/Tone: Normal (no EPS noted on physical exam) Dressing: Casual Grooming: Good Attitude: Cooperative Motor Activity: Retardation Eye Contact: Good Speech: Normal Volume: Normal Rhythm: Appropriate Rhythm Orientation: Disoriented to time, Disoriented to place, Disoriented to situation , Oriented to person Mood: Euthymic Rate of Thoughts: Delayed Thought Organization: Confused Associations: Intact Abstract Reasoning: Poor abstract reasoning Thought Content: Normal (other than confusion) Perception/Psychotic: Perception Normal Language: Naming Impaired Fund of Knowledge: Poor fund of knowledge Memory: Poor-immediate, Poor-recent Suicidal Ideation: Denies Homicidal Ideation: Denies Insight: Impaired Judgement: Impaired Impulse Control: Fair (though poor reported by facility) - Laboratory Result Diagrams: 06/21/17 11:21 06/21/17 11:21 Assessment and Plan (1) Major neurocognitive disorder Problem details: Moderate, with behavioral disturbance Etiology unknown. Patient presents clinically as though Alzheimer's may be cause , though FTD and NPH must be considered due to results of imaging. Other medical conditions: Cellulitis in LUE, HTN, HLD, GERD, asthma, constipation, allergic rhinitis R/O Delirium secondary to general medical condition (cellulitis) Current visit: Yes Status: Acute Hospital Course Summary Disclaimer: The visit summary below is not to be considered part of the above Progress Note. Hospital Course: Plan - 06/21/17: Agree with admission to [facility] for further psychiatric evaluation and care. Hospitalist service consulted for medical management. Labs in ED relatively unremarkable. Monitor hemoglobin periodically throughout admission. Given behavioral disturbance and anemia, will obtain B12 now. Complete admission work up - will obtain CT head and CXR now. Cellulitis noted to left forearm - marked with skin marker at time of assessment. Initiate Keflex 500mg QID x 7 days. Monitor closely for signs of worsening infection, fever, red streaking. Patient complains of constipation and unknown last BM. Will continue home miralax and add Senna + and milk of magnesia PRN. Continue home lisinopril 10mg daily for hypertension. Continue home Symbicort BID and albuterol nebulizer treatments PRN. Home prednisone 10mg on hold as it is reportedly for "itching" and can cause behavioral issues. Will continue home loratadine, triamcinolone ointment and lotion for dry skin/itching. Upon discharge, patient's care will be returned to her PCP, Dr. Soham Byrd. Patient is a DNR. 06/23/17 Overall patient is doing well. Chart reviewed. No nursing concerns. 06/24/17 Psych: Will continue to hold home Xanax. Plan to restart Lexapro at 10mg PO daily starting today, start Risperdal 0.25mg PO BID at 1300 and 2100. Monitor mood/behavior and reponse to treatment. 06/25/17 Psych: Per discussion with son, will discontinue antipsychotics and start Depakote DR 125mg PO BID at lunch and dinner. Continue Lexapro 10mg PO daily as well. 06/27/17 Psych- Continue current care
[2017-06-26] MEDS: DIVALPROEX 125 MG TABLET PO SCH ×2 (11:49→17:00)
[2017-06-26] MEDS: LORazepam 0.5 MG TABLET PO PRN (16:44)
--- NOTE | 2017-06-26 16:44 | Progress Note ---
- Date 06/26/17 Subjective: Anita is seen today in follow up. She is doing well- concerned re: her hair not being neat. She states no concern for pain or other concerns. Gait remains unstable, uses walker with ambulation. She does have documented urinary incontinence. Objective Vital signs: Temperature 97.4 F 06/26/17 15:36 Pulse Rate 70 06/26/17 15:36 Respiratory Rate 16 06/26/17 15:36 Blood Pressure 127/66 06/26/17 15:36 Pulse Oximetry 95 06/26/17 15:36 Height/Weight/BMI: Height 1.7 m Weight 83.9 kg Body Mass Index 29.0 - Constitutional Present: no acute distress, obese, cooperative - Routine HEENT Exam Head: Present: normocephalic, atraumatic ENT: Present: mucous membranes moist - Routine Respiratory Exam Present: CTA bilaterally. Absent: accessory muscle use, dyspnea, rhonchi, crackles - Routine Cardiovascular Exam Present: RRR, S1, S2, no murmur - Routine Abdominal Exam Present: soft, normoactive bowel sounds, non distended, non tender - Routine Extremities Exam Present: no edema - Routine Musculoskeletal Exam Musculoskeletal: Present: moving extremities well - Routine Skin Exam Present: intact, dry, warm - Routine Neurological Exam Present: alert, abnormal gait, moving all extremities - Routine Psychiatric Exam Present: cooperative. 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 . 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 Needs lumbar puncture, removal of 30-60ml of CSF, and pre- and post- procedure PT assessment of gait. If improvement, refer to neurosurgery for possible RESTORATION OFFICER shunt. Continue supportive care. BP is stable on current. Recheck labs in AM Keflex for cellulitis to DC on 06/28/17. No other acute c/o today. DVT Prophylaxis: other Resuscitation Status: Do Not Resuscitate - Physician Narrative Physician: Annabel Narvaez MD Narrative: Date: 06/26/17 Time: 2002 I have independently evaluated and examined this patient. I reviewed the chart, the patient's history, and the CLINICAL PROGRAM DIRECTOR/PA's documented findings as above. We discussed and formulated the assessment and plan as above with additions as below: Mrs. Mena was resting comfortably in the day room when seen earlier this evening. She reported that her arms are doing better, that she is sleeping well , and that her appetite is good. She reported no concerns. She could not recall who her usual physician was. NAD, cooperative, fluent speech Respirations nonlabored, good airflow, breath sounds clear Regular rhythm Minor abrasions left forearm without surrounding erythema; 1 cm soft tissue nodule mid left forearm-nontender to palpation, possible lipoma Laboratory data reviewed-unremarkable although B-12 is borderline, would recommend checking methylmalonic acid. CT head also reviewed by myself with noted ventriculomegaly. Will discuss further with Dr. Hutchinson tomorrow. Cellulitis responding well to antibiotics-nursing reports left forearm looks much improved from admission. Hospital Course Summary Disclaimer: The visit summary below is not to be considered part of the above Progress Note. Hospital Course: Plan - 06/21/17: Agree with admission to [facility] for further psychiatric evaluation and care. Hospitalist service consulted for medical management. Labs in ED relatively unremarkable. Monitor hemoglobin periodically throughout admission. Given behavioral disturbance and anemia, will obtain B12 now. Complete admission work up - will obtain CT head and CXR now. Cellulitis noted to left forearm - marked with skin marker at time of assessment. Initiate Keflex 500mg QID x 7 days. Monitor closely for signs of worsening infection, fever, red streaking. Patient complains of constipation and unknown last BM. Will continue home miralax and add Senna + and milk of magnesia PRN. Continue home lisinopril 10mg daily for hypertension. Continue home Symbicort BID and albuterol nebulizer treatments PRN. Home prednisone 10mg on hold as it is reportedly for "itching" and can cause behavioral issues. Will continue home loratadine, triamcinolone ointment and lotion for dry skin/itching. Upon discharge, patient's care will be returned to her PCP, Dr. Soham Byrd. Patient is a DNR. 06/23/17 Overall patient is doing well. Chart reviewed. No nursing concerns. 06/24/17 Psych: Will continue to hold home Xanax. Plan to restart Lexapro at 10mg PO daily starting today, start Risperdal 0.25mg PO BID at 1300 and 2100. Monitor mood/behavior and reponse to treatment. 06/25/17 Psych: Per discussion with son, will discontinue antipsychotics and start Depakote DR 125mg PO BID at lunch and dinner. Continue Lexapro 10mg PO daily as well. 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 Needs lumbar puncture, removal of 30-60ml of CSF, and pre- and post- procedure PT assessment of gait. If improvement, refer to neurosurgery for possible RESTORATION OFFICER shunt. Continue supportive care. BP is stable on current. Recheck labs in AM Keflex for cellulitis to DC on 06/28/17. No other acute c/o today.
[2017-06-26] MEDS: CIMETIDINE 400 MG TABLET PO SCH (16:47)
[2017-06-26] MEDS: ALBUTEROL 2.5mg/3ml (0.083%) NEB AEROSOL PRN (20:35)
[2017-06-27] MEDS: BUDESONIDE INH.SOLN 0.5mg/2ml NEB AEROSOL SCH ×2 (09:30→20:05)
[2017-06-27] MEDS: SENNA + DOCUSATE TABLET PO SCH (09:54)
[2017-06-27] MEDS: LISINOPRIL 10 MG TABLET PO SCH (09:54)
[2017-06-27] MEDS: ESCITALOPRAM 10 MG TABLET PO SCH (09:54)
[2017-06-27] MEDS: ASPIRIN *EC* 81 MG TABLET PO SCH (09:54)
[2017-06-27] MEDS: LORATADINE 10 MG TABLET PO SCH (09:54)
[2017-06-27] MEDS: MULTI-VITAMIN + MINERAL TABLET PO SCH (09:54)
[2017-06-27] MEDS: POLYETHYL GLYCOL 3350 17gm PACKET PO SCH (11:47)
[2017-06-27] MEDS: DIVALPROEX 125 MG TABLET PO SCH (11:48)
--- NOTE | 2017-06-27 15:11 | Neuropsych Progress Note ---
[facility] Subjective Date: 06/27/17 - Sujective/Severity of Illness Medications: Acetaminophen (Tylenol) 1,000 mg PO TID PRN PRN Reason: Pain Last Admin: 06/24/17 21:02 Dose: 1,000 mg Albuterol Sulfate (Proventil Neb (0.083%)) 2.5 mg AEROSOL Q4H PRN PRN Reason: Shortness of air/wheezing Last Admin: 06/26/17 20:35 Dose: 2.5 mg Aspirin (Ecotrin) 81 mg PO DAILY [facility] Last Admin: 06/27/17 09:54 Dose: 81 mg Budesonide (Pulmicort Inhalation) 0.5 mg AEROSOL RTBID [facility] Last Admin: 06/27/17 09:30 Dose: Not Given Cephalexin HCl (Keflex 500 Mg) 500 mg PO Q6H [facility] Stop: 06/28/17 17:55 Last Admin: 06/27/17 11:48 Dose: 500 mg Cimetidine (Tagament) 200 mg PO WS [facility] Last Admin: 06/26/17 16:47 Dose: 200 mg Diclofenac Sodium (Voltaren) 1 applic TP PRN PRN PRN Reason: Pain Divalproex Sodium (Depakote) 125 mg PO [facility] Last Admin: 06/27/17 11:48 Dose: 125 mg Escitalopram Oxalate (Lexapro) 10 mg PO DAILY [facility] Last Admin: 06/27/17 09:54 Dose: 10 mg Haloperidol Lactate (Haldol) 0.5 mg IM Q6H PRN PRN Reason: Extreme agitation Lisinopril (Prinivil) 10 mg PO DAILY [facility] Last Admin: 06/27/17 09:54 Dose: 10 mg Loratadine (Claritin) 10 mg PO 0730 [facility] Last Admin: 06/27/17 09:54 Dose: 10 mg Lorazepam (Ativan) 0.5 mg PO Q6H PRN PRN Reason: Extreme agitation Last Admin: 06/26/17 16:44 Dose: 0.5 mg Lorazepam (Ativan Inj) 0.5 mg IM Q6H PRN PRN Reason: Extreme agitation Magnesium Hydroxide (Mom) 30 ml PO DAILY PRN PRN Reason: Constipation Last Admin: 06/25/17 09:05 Dose: 30 ml Multivitamins/Minerals (Therapeutic - M) 1 tab PO DAILY [facility] Last Admin: 06/27/17 09:54 Dose: 1 tab Ondansetron HCl (Zofran Odt Tablet) 4 mg PO Q6H PRN PRN Reason: Nausea &/or vomiting Last Admin: 06/22/17 20:18 Dose: 4 mg Polyethylene Glycol (Miralax) 17 gm PO DAILY [facility] Last Admin: 06/27/17 11:47 Dose: 17 gm Potassium Chloride (K-Dur 20 Meq Tablet) 20 meq PO WB [facility] Last Admin: 06/27/17 09:54 Dose: 20 meq Senna/Docusate Sodium (Senna Plus Tablet) 1 tab PO DAILY [facility] Last Admin: 06/27/17 09:54 Dose: 1 tab Triamcinolone Acetonide (Kenalog) 1 applic TOP BID PRN PRN Reason: Itching Last Admin: 06/25/17 19:10 Dose: 1 applic Subjective: Patient seen and chart reviewed. Case discussed with treatment team. Patient is taking a nap at time of rounds. Nursing staff report patient can become confused/repetitive at times as expected with dementia. She did require PO PRN Ativan yesterday at 1645 for increased anxiety which was unable to be redirected. Patient has been adherent with medications. Patient slept 8.25 hours overnight. VSS. Patient is eating well. Psychotropic PRNs required in the past 24 hours: Ativan 0.5mg PO x1 at 1645. Hospitalist has expressed concern for NPH but workup would required LP and definitive tx would required placement of PASTER HAT LINING shunt. Given patient likely has other causes of dementia per CT and above could be difficult for patient to go through, will discuss with family further. This would most likely be done on an outpatient basis if they opt to treat NPH. Start Time: 12:20 Stop Time: 12:40 Mental Status Exam Vitals: Last Vital Signs Temp 97.3 F 06/27/17 08:00 Pulse 99 06/27/17 08:00 Resp 18 06/27/17 08:00 BP 122/75 06/27/17 08:00 Pulse Ox 92 06/27/17 08:00 Height: 1.7 m Weight: 83.9 kg - Mental Status Exam Muscle Strength/Tone: Normal (no EPS noted on physical exam) Dressing: Casual Grooming: Good Attitude: Cooperative Motor Activity: Retardation Eye Contact: Good Speech: Normal Volume: Normal Rhythm: Appropriate Rhythm Sensory: Alert Orientation: Disoriented to time, Disoriented to place, Disoriented to situation , Oriented to person Mood: Euthymic Affect: Relaxed Rate of Thoughts: Delayed Thought Organization: Confused Associations: Intact Abstract Reasoning: Poor abstract reasoning Thought Content: Normal (other than confusion) Perception/Psychotic: Perception Normal Language: Naming Impaired Fund of Knowledge: Poor fund of knowledge Memory: Poor-immediate, Poor-recent Suicidal Ideation: Denies Homicidal Ideation: Denies Insight: Impaired Judgement: Impaired Impulse Control: Fair (though poor reported by facility) - Laboratory Result Diagrams: 06/27/17 06:48 06/27/17 06:48 Laboratory Results - last 24 hr 06/27/17 06/27/17 06:48 06:48 WBC 4.6 RBC 3.51 L Hgb 11.1 L Hct 33.5 L MCV 95.4 MCH 31.6 MCHC 33.1 RDW Std Deviation 45.4 Plt Count 216 MPV 8.8 L Immature Gran % (Auto) 0.2 Neut % (Auto) 47.3 Lymph % (Auto) 31.2 Owen % (Auto) 10.8 H Eos % (Auto) 10.1 H Baso % (Auto) 0.4 Neut # (Auto) 2.2 Lymph # (Auto) 1.4 Owen # (Auto) 0.5 Eos # (Auto) 0.5 Baso # (Auto) 0.0 Abs Immat Gran (auto) 0.01 Turbidity < 20 Sodium 141 Potassium 4.2 Chloride 104 Carbon Dioxide 29 Anion Gap 8 BUN 16.0 Creatinine 0.9 GFR Calculation 59 BUN/Creatinine Ratio 18 Glucose 96 Calculated Osmolality 272 Calcium 9.3 Icterus Index < 2 Specimen Hemolysis < 15 Assessment and Plan (1) Major neurocognitive disorder Problem details: Moderate, with behavioral disturbance Etiology unknown. Patient presents clinically as though Alzheimer's may be cause , though FTD and NPH must be considered due to results of imaging. Other medical conditions: Cellulitis in LUE, HTN, HLD, GERD, asthma, constipation, allergic rhinitis R/O Delirium secondary to general medical condition (cellulitis) Current visit: Yes Status: Acute Increase Lexapro to 20mg and Depakote DR to 250mg PO BID (at lunch and dinner); monitor response. 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 Hospital Course Summary Disclaimer: The visit summary below is not to be considered part of the above Progress Note. Hospital Course: Plan - 06/21/17: Agree with admission to [facility] for further psychiatric evaluation and care. Hospitalist service consulted for medical management. Labs in ED relatively unremarkable. Monitor hemoglobin periodically throughout admission. Given behavioral disturbance and anemia, will obtain B12 now. Complete admission work up - will obtain CT head and CXR now. Cellulitis noted to left forearm - marked with skin marker at time of assessment. Initiate Keflex 500mg QID x 7 days. Monitor closely for signs of worsening infection, fever, red streaking. Patient complains of constipation and unknown last BM. Will continue home miralax and add Senna + and milk of magnesia PRN. Continue home lisinopril 10mg daily for hypertension. Continue home Symbicort BID and albuterol nebulizer treatments PRN. Home prednisone 10mg on hold as it is reportedly for "itching" and can cause behavioral issues. Will continue home loratadine, triamcinolone ointment and lotion for dry skin/itching. Upon discharge, patient's care will be returned to her PCP, Dr. Soham Byrd. Patient is a DNR. 06/23/17 Overall patient is doing well. Chart reviewed. No nursing concerns. 06/24/17 Psych: Will continue to hold home Xanax. Plan to restart Lexapro at 10mg PO daily starting today, start Risperdal 0.25mg PO BID at 1300 and 2100. Monitor mood/behavior and reponse to treatment. 06/25/17 Psych: Per discussion with son, will discontinue antipsychotics and start Depakote DR 125mg PO BID at lunch and dinner. Continue Lexapro 10mg PO daily as well. 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 Needs lumbar puncture, removal of 30-60ml of CSF, and pre- and post- procedure PT assessment of gait. If improvement, refer to neurosurgery for possible PASTER HAT LINING shunt. Continue supportive care. BP is stable on current. Recheck labs in AM Keflex for cellulitis to DC on 06/28/17. No other acute c/o today. 06/27/17 Psych: Increase Lexapro to 20mg and Depakote DR to 250mg PO BID (at lunch and dinner); monitor response. 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
[2017-06-27] MEDS: DIVALPROEX 250 MG TABLET PO SCH ×2 (16:28→17:45)
[2017-06-27] MEDS: CIMETIDINE 400 MG TABLET PO SCH (17:45)
[2017-06-27] MEDS: ALBUTEROL 2.5mg/3ml (0.083%) NEB AEROSOL PRN (20:05)
[2017-06-28] MEDS: ALBUTEROL 2.5mg/3ml (0.083%) NEB AEROSOL PRN ×2 (08:30→20:15)
[2017-06-28] MEDS: BUDESONIDE INH.SOLN 0.5mg/2ml NEB AEROSOL SCH ×2 (08:30→20:15)
[2017-06-28] MEDS: ASPIRIN *EC* 81 MG TABLET PO SCH (09:26)
[2017-06-28] MEDS: SENNA + DOCUSATE TABLET PO SCH (09:26)
[2017-06-28] MEDS: LISINOPRIL 10 MG TABLET PO SCH (09:26)
[2017-06-28] MEDS: POLYETHYL GLYCOL 3350 17gm PACKET PO SCH (09:26)
[2017-06-28] MEDS: MULTI-VITAMIN + MINERAL TABLET PO SCH (09:26)
[2017-06-28] MEDS: ESCITALOPRAM 20 MG TABLET PO SCH (09:26)
[2017-06-28] MEDS: LORATADINE 10 MG TABLET PO SCH (09:26)
[2017-06-28] MEDS: DIVALPROEX 250 MG TABLET PO SCH ×2 (11:37→17:39)
--- NOTE | 2017-06-28 14:00 | Neuropsych Progress Note ---
[facility] Subjective Date: 06/28/17 - Sujective/Severity of Illness Medications: Acetaminophen (Tylenol) 1,000 mg PO TID PRN PRN Reason: Pain Last Admin: 06/24/17 21:02 Dose: 1,000 mg Albuterol Sulfate (Proventil Neb (0.083%)) 2.5 mg AEROSOL Q4H PRN PRN Reason: Shortness of air/wheezing Last Admin: 06/28/17 08:30 Dose: 2.5 mg Aspirin (Ecotrin) 81 mg PO DAILY [facility] Last Admin: 06/28/17 09:26 Dose: 81 mg Budesonide (Pulmicort Inhalation) 0.5 mg AEROSOL RTBID [facility] Last Admin: 06/28/17 08:30 Dose: 0.5 mg Cephalexin HCl (Keflex 500 Mg) 500 mg PO Q6H [facility] Stop: 06/28/17 17:55 Last Admin: 06/28/17 11:37 Dose: 500 mg Cimetidine (Tagament) 200 mg PO WS [facility] Last Admin: 06/27/17 17:45 Dose: 200 mg Diclofenac Sodium (Voltaren) 1 applic TP PRN PRN PRN Reason: Pain Divalproex Sodium (Depakote) 250 mg PO [facility] Last Admin: 06/28/17 11:37 Dose: 250 mg Escitalopram Oxalate (Lexapro) 20 mg PO DAILY [facility] Last Admin: 06/28/17 09:26 Dose: 20 mg Lisinopril (Prinivil) 10 mg PO DAILY [facility] Last Admin: 06/28/17 09:26 Dose: 10 mg Loratadine (Claritin) 10 mg PO 0730 [facility] Last Admin: 06/28/17 09:26 Dose: 10 mg Lorazepam (Ativan) 0.5 mg PO Q6H PRN PRN Reason: Extreme agitation Last Admin: 06/26/17 16:44 Dose: 0.5 mg Lorazepam (Ativan Inj) 0.5 mg IM Q6H PRN PRN Reason: Extreme agitation Magnesium Hydroxide (Mom) 30 ml PO DAILY PRN PRN Reason: Constipation Last Admin: 06/25/17 09:05 Dose: 30 ml Multivitamins/Minerals (Therapeutic - M) 1 tab PO DAILY [facility] Last Admin: 06/28/17 09:26 Dose: 1 tab Ondansetron HCl (Zofran Odt Tablet) 4 mg PO Q6H PRN PRN Reason: Nausea &/or vomiting Last Admin: 06/22/17 20:18 Dose: 4 mg Polyethylene Glycol (Miralax) 17 gm PO DAILY [facility] Last Admin: 06/28/17 09:26 Dose: 17 gm Potassium Chloride (K-Dur 20 Meq Tablet) 20 meq PO WB [facility] Last Admin: 06/28/17 09:26 Dose: 20 meq Senna/Docusate Sodium (Senna Plus Tablet) 1 tab PO DAILY [facility] Last Admin: 06/28/17 09:26 Dose: 1 tab Triamcinolone Acetonide (Kenalog) 1 applic TOP BID PRN PRN Reason: Itching Last Admin: 06/25/17 19:10 Dose: 1 applic Subjective: Patient seen and chart reviewed. Case discussed with treatment team. Patient is sitting in dayroom and appears to enjoy socializing with staff. She reports her mood is good and she feels well physically. Nursing staff report patient can become confused/repetitive at times as expected with dementia, but she has not had any other significant behavioral difficulties. Patient has been adherent with medications. Patient slept 7.755 hours overnight. VSS. Patient is eating well. Psychotropic PRNs required in the past 24 hours: None. I had a conference phone call with son/DPCASS and daughter Lydia. Offered information in regards to imaging, likely diagnoses, current medications, treatment of NPH and possible benefits vs. risks. They are concerned with whether current placement can manage patient and ask for list of other local placement options with memory care. Start Time: 12:00 Stop Time: 12:20 Mental Status Exam Vitals: Last Vital Signs Temp 97.4 F 06/28/17 08:00 Pulse 74 06/28/17 08:00 Resp 14 06/28/17 08:30 BP 119/67 06/28/17 08:00 Pulse Ox 98 06/28/17 08:30 Height: 1.7 m Weight: 83.9 kg - Mental Status Exam Muscle Strength/Tone: Normal (no EPS noted on physical exam) Dressing: Casual Grooming: Good Attitude: Cooperative Motor Activity: Retardation Eye Contact: Good Speech: Normal Volume: Normal Rhythm: Appropriate Rhythm Orientation: Disoriented to time, Disoriented to place, Disoriented to situation , Oriented to person Mood: Euthymic Affect: Bright, Relaxed Rate of Thoughts: Delayed Thought Organization: Confused Associations: Intact Abstract Reasoning: Poor abstract reasoning Thought Content: Normal (other than confusion) Perception/Psychotic: Perception Normal Language: Naming Impaired Fund of Knowledge: Poor fund of knowledge Memory: Poor-immediate, Poor-recent Suicidal Ideation: Denies Homicidal Ideation: Denies Insight: Impaired Judgement: Impaired Impulse Control: Fair (though poor reported by facility) - Laboratory Result Diagrams: 06/27/17 06:48 06/27/17 06:48 Assessment and Plan (1) Major neurocognitive disorder Problem details: Moderate, with behavioral disturbance Etiology unknown. Patient presents clinically as though Alzheimer's may be cause , though FTD and NPH must be considered due to results of imaging. Other medical conditions: Cellulitis in LUE, HTN, HLD, GERD, asthma, constipation, allergic rhinitis R/O Delirium secondary to general medical condition (cellulitis) Current visit: Yes Status: Acute Continue current care; will meet tomorrow with treatment team and discuss whether current placement can meet patient needs. Hospital Course Summary Disclaimer: The visit summary below is not to be considered part of the above Progress Note. Hospital Course: Plan - 06/21/17: Agree with admission to [facility] for further psychiatric evaluation and care. Hospitalist service consulted for medical management. Labs in ED relatively unremarkable. Monitor hemoglobin periodically throughout admission. Given behavioral disturbance and anemia, will obtain B12 now. Complete admission work up - will obtain CT head and CXR now. Cellulitis noted to left forearm - marked with skin marker at time of assessment. Initiate Keflex 500mg QID x 7 days. Monitor closely for signs of worsening infection, fever, red streaking. Patient complains of constipation and unknown last BM. Will continue home miralax and add Senna + and milk of magnesia PRN. Continue home lisinopril 10mg daily for hypertension. Continue home Symbicort BID and albuterol nebulizer treatments PRN. Home prednisone 10mg on hold as it is reportedly for "itching" and can cause behavioral issues. Will continue home loratadine, triamcinolone ointment and lotion for dry skin/itching. Upon discharge, patient's care will be returned to her PCP, Dr. Soham Byrd. Patient is a DNR. 06/23/17 Overall patient is doing well. Chart reviewed. No nursing concerns. 06/24/17 Psych: Will continue to hold home Xanax. Plan to restart Lexapro at 10mg PO daily starting today, start Risperdal 0.25mg PO BID at 1300 and 2100. Monitor mood/behavior and reponse to treatment. 06/25/17 Psych: Per discussion with son, will discontinue antipsychotics and start Depakote DR 125mg PO BID at lunch and dinner. Continue Lexapro 10mg PO daily as well. 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 Needs lumbar puncture, removal of 30-60ml of CSF, and pre- and post- procedure PT assessment of gait. If improvement, refer to neurosurgery for possible SMOG TECHNICIAN shunt. Continue supportive care. BP is stable on current. Recheck labs in AM Keflex for cellulitis to DC on 06/28/17. No other acute c/o today. 06/27/17 Psych: Increase Lexapro to 20mg and Depakote DR to 250mg PO BID (at lunch and dinner); monitor response. 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
[2017-06-28] MEDS: CIMETIDINE 400 MG TABLET PO SCH (17:39)
[2017-06-28 21:15] VITALS: RESP 16
[2017-06-29] MEDS: ALBUTEROL 2.5mg/3ml (0.083%) NEB AEROSOL PRN (07:45)
[2017-06-29] MEDS: BUDESONIDE INH.SOLN 0.5mg/2ml NEB AEROSOL SCH ×2 (07:45→20:25)
[2017-06-29] MEDS: LORATADINE 10 MG TABLET PO SCH (08:34)
[2017-06-29] MEDS: ESCITALOPRAM 20 MG TABLET PO SCH (08:35)
[2017-06-29] MEDS: ASPIRIN *EC* 81 MG TABLET PO SCH (08:35)
[2017-06-29] MEDS: MULTI-VITAMIN + MINERAL TABLET PO SCH (08:35)
[2017-06-29] MEDS: LISINOPRIL 10 MG TABLET PO SCH (08:35)
[2017-06-29] MEDS: SENNA + DOCUSATE TABLET PO SCH (08:35)
[2017-06-29] MEDS: TRIAMCINOLONE 0.025% CREAM 15 G TUBE TOP PRN (09:09)
[2017-06-29] MEDS: POLYETHYL GLYCOL 3350 17gm PACKET PO SCH (12:01)
[2017-06-29] MEDS: DIVALPROEX 250 MG TABLET PO SCH ×2 (12:08→17:18)
--- NOTE | 2017-06-29 12:29 | Neuropsych Progress Note ---
[facility] Subjective Date: 06/29/17 - Sujective/Severity of Illness Medications: Acetaminophen (Tylenol) 1,000 mg PO TID PRN PRN Reason: Pain Last Admin: 06/24/17 21:02 Dose: 1,000 mg Albuterol Sulfate (Proventil Neb (0.083%)) 2.5 mg AEROSOL Q4H PRN PRN Reason: Shortness of air/wheezing Last Admin: 06/29/17 07:45 Dose: 2.5 mg Aspirin (Ecotrin) 81 mg PO DAILY [facility] Last Admin: 06/29/17 08:35 Dose: 81 mg Budesonide (Pulmicort Inhalation) 0.5 mg AEROSOL RTBID [facility] Last Admin: 06/29/17 07:45 Dose: 0.5 mg Cimetidine (Tagament) 200 mg PO WS [facility] Last Admin: 06/28/17 17:39 Dose: 200 mg Diclofenac Sodium (Voltaren) 1 applic TP PRN PRN PRN Reason: Pain Divalproex Sodium (Depakote) 250 mg PO [facility] Last Admin: 06/29/17 12:08 Dose: 250 mg Escitalopram Oxalate (Lexapro) 20 mg PO DAILY [facility] Last Admin: 06/29/17 08:35 Dose: 20 mg Lisinopril (Prinivil) 10 mg PO DAILY [facility] Last Admin: 06/29/17 08:35 Dose: 10 mg Loratadine (Claritin) 10 mg PO 0730 [facility] Last Admin: 06/29/17 08:34 Dose: 10 mg Lorazepam (Ativan) 0.5 mg PO Q6H PRN PRN Reason: Extreme agitation Last Admin: 06/26/17 16:44 Dose: 0.5 mg Lorazepam (Ativan Inj) 0.5 mg IM Q6H PRN PRN Reason: Extreme agitation Magnesium Hydroxide (Mom) 30 ml PO DAILY PRN PRN Reason: Constipation Last Admin: 06/25/17 09:05 Dose: 30 ml Multivitamins/Minerals (Therapeutic - M) 1 tab PO DAILY [facility] Last Admin: 06/29/17 08:35 Dose: 1 tab Ondansetron HCl (Zofran Odt Tablet) 4 mg PO Q6H PRN PRN Reason: Nausea &/or vomiting Last Admin: 06/22/17 20:18 Dose: 4 mg Polyethylene Glycol (Miralax) 17 gm PO DAILY [facility] Last Admin: 06/29/17 12:01 Dose: 17 gm Potassium Chloride (K-Dur 20 Meq Tablet) 20 meq PO WB [facility] Last Admin: 06/29/17 08:35 Dose: 20 meq Senna/Docusate Sodium (Senna Plus Tablet) 1 tab PO DAILY [facility] Last Admin: 06/29/17 08:35 Dose: 1 tab Triamcinolone Acetonide (Kenalog) 1 applic TOP BID PRN PRN Reason: Itching Last Admin: 06/29/17 09:09 Dose: 1 applic Subjective: Patient seen and chart reviewed. Case discussed with treatment team. Patient eports her mood is good and she feels well physically. Nursing staff report patient can become confused/repetitive at times as expected with dementia, but she has not had any other significant behavioral difficulties. She does have short-lived VH at times but these have not been distressing in nature. Patient has been adherent with medications. Patient slept 7.75 hours overnight. VSS. Patient is eating well. Psychotropic PRNs required in the past 24 hours: None. Discussed care requirements with nursing, JALYN. Patient has not been exit-seeking here. [facility] states they are not able to redirect her as often as 15 minutes which seems odd for a memory care unit given that patients with dementia typically have STMs of less than 15 minutes. CM discussed options for care with family and they are opting to try again at [facility], knowing they may need true memory care unit in the future. Start Time: 12:40 Stop Time: 13:00 Mental Status Exam Vitals: Last Vital Signs Temp 97.4 F 06/28/17 20:12 Pulse 91 06/29/17 08:00 Resp 16 06/29/17 08:04 BP 127/67 06/29/17 08:00 Pulse Ox 99 06/29/17 08:04 Height: 1.7 m Weight: 83.9 kg - Mental Status Exam Muscle Strength/Tone: Normal (no EPS noted on physical exam) Dressing: Casual Grooming: Good Attitude: Cooperative Motor Activity: Retardation Eye Contact: Good Speech: Normal Volume: Normal Rhythm: Appropriate Rhythm Orientation: Disoriented to time, Disoriented to place, Disoriented to situation , Oriented to person Mood: Euthymic Affect: Bright Rate of Thoughts: Delayed Thought Organization: Confused Associations: Intact Abstract Reasoning: Poor abstract reasoning Thought Content: Normal (other than confusion) Perception/Psychotic: Psychotic Current Hallucinations: Visual (occasional, non-distressing) Language: Naming Impaired Fund of Knowledge: Poor fund of knowledge Memory: Poor-immediate, Poor-recent Suicidal Ideation: Denies Homicidal Ideation: Denies Insight: Impaired Judgement: Impaired Impulse Control: Good - Laboratory Result Diagrams: 06/27/17 06:48 06/27/17 06:48 Assessment and Plan (1) Major neurocognitive disorder Problem details: Moderate, with behavioral disturbance Etiology unknown. Patient presents clinically as though Alzheimer's may be cause , though FTD and NPH must be considered due to results of imaging. Other medical conditions: Cellulitis in LUE, HTN, HLD, GERD, asthma, constipation, allergic rhinitis R/O Delirium secondary to general medical condition (cellulitis) Current visit: Yes Status: Acute Discharge back to LTC facility tomorrow. Hospital Course Summary Disclaimer: The visit summary below is not to be considered part of the above Progress Note. Hospital Course: Plan - 06/21/17: Agree with admission to [facility] for further psychiatric evaluation and care. Hospitalist service consulted for medical management. Labs in ED relatively unremarkable. Monitor hemoglobin periodically throughout admission. Given behavioral disturbance and anemia, will obtain B12 now. Complete admission work up - will obtain CT head and CXR now. Cellulitis noted to left forearm - marked with skin marker at time of assessment. Initiate Keflex 500mg QID x 7 days. Monitor closely for signs of worsening infection, fever, red streaking. Patient complains of constipation and unknown last BM. Will continue home miralax and add Senna + and milk of magnesia PRN. Continue home lisinopril 10mg daily for hypertension. Continue home Symbicort BID and albuterol nebulizer treatments PRN. Home prednisone 10mg on hold as it is reportedly for "itching" and can cause behavioral issues. Will continue home loratadine, triamcinolone ointment and lotion for dry skin/itching. Upon discharge, patient's care will be returned to her PCP, Dr. Soham Byrd. Patient is a DNR. 06/23/17 Overall patient is doing well. Chart reviewed. No nursing concerns. 06/24/17 Psych: Will continue to hold home Xanax. Plan to restart Lexapro at 10mg PO daily starting today, start Risperdal 0.25mg PO BID at 1300 and 2100. Monitor mood/behavior and reponse to treatment. 06/25/17 Psych: Per discussion with son, will discontinue antipsychotics and start Depakote DR 125mg PO BID at lunch and dinner. Continue Lexapro 10mg PO daily as well. 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 Needs lumbar puncture, removal of 30-60ml of CSF, and pre- and post- procedure PT assessment of gait. If improvement, refer to neurosurgery for possible ORDER WORKER shunt. Continue supportive care. BP is stable on current. Recheck labs in AM Keflex for cellulitis to DC on 06/28/17. No other acute c/o today. 06/27/17 Psych: Increase Lexapro to 20mg and Depakote DR to 250mg PO BID (at lunch and dinner); monitor response. 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 06/29/17 Psych: Discharge back to LTC facility on 06/30/17.
--- NOTE | 2017-06-29 14:08 | Progress Note ---
- Date 06/29/17 Subjective: Patient was seen after lunch sitting in the dining area. She is wrapped up in a blanket and c/o being cold, otherwise, she has no concerns except she tells me she doesn't get enough sleep. "They don't let me sleep enough." Appetite is good. No CP, SOA, nausea or vomiting. Objective Vital signs: Temperature 97.4 F 06/28/17 20:12 Pulse Rate 91 06/29/17 08:00 Respiratory Rate 16 06/29/17 08:04 Blood Pressure 127/67 06/29/17 08:00 Pulse Oximetry 99 06/29/17 08:04 Height/Weight/BMI: Height 1.7 m Weight 83.9 kg Body Mass Index 29.0 - Constitutional Present: no acute distress, well nourished, well developed - Routine HEENT Exam Head: Present: normocephalic, atraumatic - Routine Respiratory Exam Present: CTA bilaterally. Absent: wheezes - Routine Cardiovascular Exam Present: RRR, no murmur - Routine Abdominal Exam Present: soft, non distended, non tender - Routine Extremities Exam Present: no edema, normal capillary refill - Routine Skin Exam Present: dry, warm - Routine Neurological Exam Present: alert, moving all extremities, normal speech - Routine Lymphatic Exam Lymphatic: Absent: adenopathy - Routine Psychiatric Exam Present: normal affect, cooperative Results - Labs CBC & Chem 7: 06/27/17 06:48 06/27/17 06:48 Assessment and Plan (1) Dementia with behavioral disturbance Current visit: Yes Status: Acute Assessment and Plan: Assessment: Dementia with acute behavioral disturbance Acute cellulitis to left forearm, present on admission Anemia, unspecified, present on admission Constipation, acute on chronic Hypertension Hyperlipidemia GERD Asthma Eczema Allergic rhinitis Plan Dr Hutchinson has discussed 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 VSS's, labs, nurses notes and psych notes reviewed. Medically stable at this time. - Physician Narrative Narrative: Date: 06/29/17 Time: 1401 Hospital Course Summary Disclaimer: The visit summary below is not to be considered part of the above Progress Note. Hospital Course: Plan - 06/21/17: Agree with admission to [facility] for further psychiatric evaluation and care. Hospitalist service consulted for medical management. Labs in ED relatively unremarkable. Monitor hemoglobin periodically throughout admission. Given behavioral disturbance and anemia, will obtain B12 now. Complete admission work up - will obtain CT head and CXR now. Cellulitis noted to left forearm - marked with skin marker at time of assessment. Initiate Keflex 500mg QID x 7 days. Monitor closely for signs of worsening infection, fever, red streaking. Patient complains of constipation and unknown last BM. Will continue home miralax and add Senna + and milk of magnesia PRN. Continue home lisinopril 10mg daily for hypertension. Continue home Symbicort BID and albuterol nebulizer treatments PRN. Home prednisone 10mg on hold as it is reportedly for "itching" and can cause behavioral issues. Will continue home loratadine, triamcinolone ointment and lotion for dry skin/itching. Upon discharge, patient's care will be returned to her PCP, Dr. Soham Byrd. Patient is a DNR. 06/23/17 Overall patient is doing well. Chart reviewed. No nursing concerns. 06/24/17 Psych: Will continue to hold home Xanax. Plan to restart Lexapro at 10mg PO daily starting today, start Risperdal 0.25mg PO BID at 1300 and 2100. Monitor mood/behavior and reponse to treatment. 06/25/17 Psych: Per discussion with son, will discontinue antipsychotics and start Depakote DR 125mg PO BID at lunch and dinner. Continue Lexapro 10mg PO daily as well. 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 Needs lumbar puncture, removal of 30-60ml of CSF, and pre- and post- procedure PT assessment of gait. If improvement, refer to neurosurgery for possible DENTAL MECHANIC shunt. Continue supportive care. BP is stable on current. Recheck labs in AM Keflex for cellulitis to DC on 06/28/17. No other acute c/o today. 06/27/17 Psych: Increase Lexapro to 20mg and Depakote DR to 250mg PO BID (at lunch and dinner); monitor response. 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
--- NOTE | 2017-06-29 17:08 | Extended Care Facility Orders ---
Admission Orders Admit to:: [facility] Allergies/Adverse Reactions: Allergies mirtazapine [From Remeron] Allergy (Verified 06/21/17 10:58) paroxetine Allergy (Verified 06/21/17 10:58) temazepam Allergy (Verified 06/21/17 10:58) zolpidem [From Ambien] Allergy (Verified 06/21/17 10:58) Admitting Diagnosis: dementia with behavioral disturbances Admitting Physician: Kim Hutchinson MD Attending Physician: Kim Hutchinson MD Code Status: Do Not Resuscitate Anticiapted Length of Stay: greater than 30 days Diet: 06/21/17 Lunch Regular Diet [DIET] Diet Modifications: May use Facility Protocol or Standing Orders: Yes May have flu vaccine: Yes Evaluations/Treatment: Psychiatric [facility] Certification: I certify that SNF services are required to be given on an Inpatient basis because of the patients need for [facility] care on a continuing basis for the condition(s) for which he/she received inpatient hospital services prior to his/her transfer to the SNF. SNF inpatient care is necessary for the following reasons Indication for [facility]: Not Applicable - Additional Information In Event of Arrest: Do Not Start CPR Resident is Aware of Diagnosis: No (due to dementia) Referrals: Soham Shaffer MD [Other] ([facility] on 07/06/17 at 10:15 am for Hosp. follow-up. [address] [address] PCP will manage Mental Health needs at this time.)
[2017-06-29] MEDS: CIMETIDINE 400 MG TABLET PO SCH (17:18)
[2017-06-29 20:00] VITALS: O2SAT 94
[2017-06-30] MEDS: POLYETHYL GLYCOL 3350 17gm PACKET PO SCH (08:27)
[2017-06-30] MEDS: BUDESONIDE INH.SOLN 0.5mg/2ml NEB AEROSOL SCH (08:33)
[2017-06-30] MEDS: ESCITALOPRAM 20 MG TABLET PO SCH (08:42)
[2017-06-30] MEDS: SENNA + DOCUSATE TABLET PO SCH (08:42)
[2017-06-30] MEDS: ASPIRIN *EC* 81 MG TABLET PO SCH (08:42)
[2017-06-30] MEDS: MULTI-VITAMIN + MINERAL TABLET PO SCH (08:42)
[2017-06-30] MEDS: LORATADINE 10 MG TABLET PO SCH (08:42)
[2017-06-30] MEDS: LISINOPRIL 10 MG TABLET PO SCH (08:43)
[2017-06-30 08:53] VITALS: BP 130/64; PULSE 72; TEMP 97.6
== END 2017-06-30 10:30 | disposition home or self-care (01) | DRG 884 ==
LOC: ED 10:48 → GEN 12:31
PROVIDERS: ADMIT Psychiatry & Neurology Psychiatry; ATTEND Psychiatry & Neurology Psychiatry